=== PATIENT | male | born 1960 | race Caucasian/White ===

== ENCOUNTER 2021-04-10 09:05 | Emergency (ER) | payer MEDICARE, MEDICAID, SELFPAY ==
--- NOTE | ~2021-04-10 | XR_ITS ---
EXAMINATION: XR foot RT min 3V, XR ankle RT min 3V EXAM DATE: 04/10/2021 10:17 (accession [id number]), 04/10/2021 10:16 (accession [id number]) INDICATION: Rolled 1 week ago, persistent right foot, ankle pain. Initial encounter. TECHNIQUE: Right foot dorsoplantar, lateral and oblique projections obtained and reviewed. Right ank le frontal, lateral and oblique projections obtained and reviewed. There is no prior study for jude brunson. FINDINGS: Acute closed posttraumatic nondisplaced fracture at the medial side of the right 1st dista l phalangeal base. Metatarsal bones are unremarkable. Acute closed posttraumatic nondisplaced fracture of the right fibular tip with overlying soft tissue swelling. Fracture margin measures about over 1 cm in maximal dimension. Uncertain whether or not thi s will require surgical fixation. There is no distraction. Mortise relationship appears intact. IMPRESSION: 1. Acute right distal fibular tip fracture without distraction. Orthopedic consult. 2. 1st distal phalangeal base nondisplaced intra-articular fracture. Reviewed, dictated and finalized at location A. LABORER IMPRESSION: 1. Acute right distal fibular tip fracture without distraction. Orthopedic con sult. 2. 1st distal phalangeal base nondisplaced intra-articular fracture.
[2021-04-10 09:25] VITALS: BP 101/70; PULSE 92; RESP 18; TEMP 36.3; O2SAT 98
--- NOTE | 2021-04-10 09:40 | ED.LOWEXIN ---
HPI - Extremity Injury (Lower) General Chief Complaint: Extremity Injury, Lower Stated Complaint: Right ankel injury/fainting spells. Time Seen by Provider: 04/10/21 10:00 Source: patient and RN notes reviewed Mode of arrival: ambulatory Limitations: no limitations History of Present Illness HPI Narrative: 61-year-old male with history of HIV, diabetes, hypertension, neuropathy presents with right ankle and foot pain. He reports he has been having a problem with passing out recently for which he is seeing his primary care doctor, he passed out a week ago and hurt his ankle. He reports pain is tolerable in the morning, worsened throughout the day as he walks on it, swells. Reports he has prescription pain medicine he has been using. Reports bruising to the foot and ankle. MD complaint: ankle injury Related Data Home Medications Medication Instructions Recorded Confirmed abacavir 300 mg PO TID 04/10/21 04/10/21 allopurinol 100 mg PO DAILY 04/10/21 04/10/21 amlodipine 10 mg PO DAILY 04/10/21 04/10/21 cyclobenzaprine 10 mg PO TID 04/10/21 04/10/21 dolutegravir [Tivicay] 50 mg PO DAILY 04/10/21 04/10/21 duloxetine 60 mg PO DAILY 04/10/21 04/10/21 empagliflozin [Jardiance] 10 mg PO DAILY 04/10/21 04/10/21 fluticasone propionate 2 spray INTRANASAL DAILY 04/10/21 04/10/21 gabapentin 1,200 mg PO BID 04/10/21 04/10/21 icosapent ethyl [Vascepa] 1 g PO QID 04/10/21 04/10/21 icosapent ethyl [Vascepa] g PO 04/10/21 lancets [Microlet Lancet] 04/10/21 04/10/21 losartan 100 mg PO DAILY 04/10/21 04/10/21 metformin 1,000 mg PO BID 04/10/21 04/10/21 metformin 850 mg PO BID 04/10/21 04/10/21 metoprolol tartrate 50 mg PO BID 04/10/21 04/10/21 naloxegol [Movantik] 25 mg PO DAILY 04/10/21 04/10/21 omega-3 acid ethyl esters 1 g PO BID 04/10/21 04/10/21 oxycodone 10 mg PO BID 04/10/21 04/10/21 oxycodone [OxyContin] 20 mg PO Q12H 04/10/21 04/10/21 pravastatin 40 mg PO DAILY 04/10/21 04/10/21 tamsulosin 0.4 mg PO BID 04/10/21 04/10/21 tenofovir disoproxil fumarate 300 mg PO DAILY 04/10/21 04/10/21 topiramate 25 mg PO BID 04/10/21 04/10/21 trazodone 50 mg PO QID 04/10/21 04/10/21 venlafaxine 150 mg PO DAILY 04/10/21 04/10/21 Allergies Allergy/AdvReac Type Severity Reaction Status Date / Time No Known Allergies Allergy Unverified 06/20/17 09:46 Review of Systems Review of Systems: CONSTITUTIONAL: Denies malaise, chills, sweats, or fever. CARDIOVASCULAR: Denies chest pain, palpitations, or edema. RESPIRATORY: Denies cough or dyspnea. SKIN: Denies open skin, reports bruising and swelling to the right foot and ankle MUSCULOSKELETAL: Reports right foot and ankle pain NEUROLOGIC: Denies numbness, weakness All systems reviewed & are unremarkable except as noted in HPI and below PMFSH Comments At time of signature, agree with nursing past medical, surgical, social and family history. There is no relevant family history pertinent to the presenting complaint Exam Narrative: GENERAL: Well-appearing, well-nourished, and in no acute distress. HEAD: Normocephalic, atraumatic. EYES: PERRLA, conjunctivae clear NECK: Supple. CHEST: Speaks in full sentences. No respiratory distress. HEART: Regular rate and rhythm. Normal and equal peripheral pulses. EXTREMITIES: Right ankle, foot, digits have normal strength and sensation, grossly normal range of motion. Lateral ankle edema, late stage ecchymosis to the ankle and dorsal foot. 5/5 strength with ankle and digit flexion and extension. Normal sensation with sensitivity to light touch and pain. Lateral ankle and dorsal foot tenderness. No open wounds, no skin tenting, no devitalized tissue or atrophy, no trophic changes, no obvious deformity, alignment normal, nearby joints and structures intact. Distal pulses palpable and equal bilaterally, skin warm, dry, pink. Capillary refill less than 3 seconds. SKIN: Warm, dry, no rash. NEURO: Alert and oriented x3. PSYCH: Normal mood and affect Course Course Emergency
== END 2021-04-10 11:21 | disposition home or self-care (01) ==
PROVIDERS: Emergency Provider Nurse Practitioner; PCP Internal Medicine Infectious Disease
DX: S82.831A Other fracture of upper and lower end of right fibula, initial encounter for closed fracture (principal); W19.XXXA Unspecified fall, initial encounter; S92.901A Unspecified fracture of right foot, initial encounter for closed fracture; I10 Essential (primary) hypertension; Z21 Asymptomatic human immunodeficiency virus [HIV] infection status; E11.9 Type 2 diabetes mellitus without complications; F41.9 Anxiety disorder, unspecified; F32.A Depression, unspecified; G62.9 Polyneuropathy, unspecified
CPT/HCPCS: 29515; 73610; 73630; 99204; G0463

== ENCOUNTER 2022-04-21 17:04 | Emergency (ER) | payer MEDICARE, MEDICAID, SELFPAY ==
--- NOTE | ~2022-04-21 | XR_ITS ---
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 RESULT: Lines, tubes, and devices: None. Lungs and pleura: Diffuse reticulonodular opacities, with cuffing. Cardiomediastinal silhouette: Stable. Other: No acute osseous or upper abdominal finding. IMPRESSION: Pulmonary opacities may represent bronchiolitis, as can be seen with atypical infection, asthma, aspi ration, and small airways disease. Reviewed, dictated and finalized at location K. ALT SCREED OPERATOR IMPRESSION: Pulmonary opacities may represent bronchiolitis, as can be seen with atypical i nfection, asthma, aspiration, and small airways disease.
[2022-04-21 17:18] VITALS: BP 114/73; PULSE 117; RESP 22; TEMP 37.1; O2SAT 95
--- NOTE | 2022-04-21 19:09 | ED.URI ---
HPI - URI/Sore Throat General Chief Complaint: Upper Respiratory Infection Stated Complaint: Shortness of Breath Time Seen by Provider: 04/21/22 19:00 Source: patient, RN notes reviewed and old records reviewed Mode of arrival: ambulatory Limitations: no limitations History of Present Illness HPI Narrative: 62 year year old male accompanied by significant other presents to express care with complaints of patient having increased shortness of breath for the past 2 days with wheezing and SAO2 sats ranging 89-90% on home oximetry.Patient reported to have had pneumonia in December and then he had COVID in January. Patient has past history of tobacco abuse of cigarettes for 20 years at [facility] with vaping for the past 10 years. 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 Patient is able to answer questions appropriately. MD elicited complaint: cough and other (shortness of breath) Pertinent past history: pneumonia and other (COVID, tobacco use and vaping) Onset (ago): day(s) (2) Treatments prior to arrival: other (inhalers) Related Data Home Medications Medication Instructions Recorded Confirmed abacavir 300 mg tablet 300 mg PO BID 04/10/21 04/21/22 allopurinol 100 mg tablet 100 mg PO DAILY 04/10/21 04/21/22 amlodipine 10 mg tablet 10 mg PO DAILY 04/10/21 04/21/22 cyclobenzaprine 10 mg tablet 10 mg PO TID 04/10/21 04/21/22 dolutegravir 50 mg tablet (Tivicay) 50 mg PO DAILY 04/10/21 04/21/22 duloxetine 60 mg capsule,delayed 60 mg PO DAILY 04/10/21 04/21/22 release empagliflozin 10 mg tablet 10 mg PO DAILY 04/10/21 04/21/22 (Jardiance) fluticasone propionate 50 2 spray intranasal DAILY 04/10/21 04/21/22 mcg/actuation nasal spray,suspension gabapentin 600 mg tablet 1,200 mg PO BID 04/10/21 04/21/22 icosapent ethyl 1 gram capsule 1 g PO QID 04/10/21 04/21/22 (Vascepa) lancets (Microlet Lancet) 04/10/21 04/10/21 losartan 100 mg tablet 100 mg PO DAILY 04/10/21 04/21/22 metformin 500 mg tablet 1,000 mg PO BID 04/10/21 04/21/22 metoprolol tartrate 50 mg tablet 50 mg PO BID 04/10/21 04/21/22 naloxegol 25 mg tablet (Movantik) 25 mg PO DAILY 04/10/21 04/21/22 omega-3 acid ethyl esters 1 gram 1 g PO BID 04/10/21 04/21/22 capsule oxycodone 10 mg tablet 10 mg PO BID 04/10/21 04/21/22 oxycodone 20 mg tablet,crush 20 mg PO Q12H 04/10/21 04/21/22 resistant,extended release 12 hr (OxyContin) pravastatin 40 mg tablet 40 mg PO DAILY 04/10/21 04/21/22 tamsulosin 0.4 mg capsule 0.4 mg PO BID 04/10/21 04/21/22 tenofovir disoproxil fumarate 300 300 mg PO DAILY 04/10/21 04/21/22 mg tablet topiramate 25 mg tablet 25 mg PO BID 04/10/21 04/21/22 trazodone 50 mg tablet 50 mg PO QID 04/10/21 04/21/22 venlafaxine 150 mg 150 mg PO DAILY 04/10/21 04/21/22 capsule,extended release 24 hr fluticasone furoate 200 See Rx Instructions .Route .COMPLEX 04/21/22 04/21/22 mcg-vilanterol 25 mcg/dose inhalation powder (Breo Ellipta) Allergies Allergy/AdvReac Type Severity Reaction Status Date / Time No Known Allergies Allergy Unverified 04/21/22 18:31 Review of Systems Review of Systems: CONSTITUTIONAL: Denies fever, chills, or sweats. EYES: Denies visual changes, redness, or discharge. ENT: Denies rhinorrhea, congestion, sore throat, or otalgia. CARDIOVASCULAR: Denies chest pain, palpitations, or edema. RESPIRATORY: Reports cough wheezing and dyspnea. GASTROINTESTINAL: Denies abdominal pain, nausea, vomiting, or diarrhea. GENITOURINARY: Denies dysuria or hematuria. SKIN: Denies rash or itching. MUSCULOSKELETAL: Chronic back pain, joint pain, or myalgia. NEUROLOGIC: Denies headache, numbness, or weakness. PSYCHIATRIC: Positive anxiety or depression. All systems reviewed & are unremarkable except as noted in HPI and below PMFSH Past Medical History Medical History (Updated 04/28/22 @ 16:48 by Tata Cabello NP)
== END 2022-04-21 19:30 | disposition home or self-care (01) ==
PROVIDERS: Emergency Provider Registered Nurse; PCP Internal Medicine Infectious Disease
DX: J21.9 Acute bronchiolitis, unspecified (principal); J06.9 Acute upper respiratory infection, unspecified; R05.9 Cough, unspecified; Z21 Asymptomatic human immunodeficiency virus [HIV] infection status; F17.290 Nicotine dependence, other tobacco product, uncomplicated; E11.9 Type 2 diabetes mellitus without complications; E78.00 Pure hypercholesterolemia, unspecified; I10 Essential (primary) hypertension; F41.9 Anxiety disorder, unspecified; F32.A Depression, unspecified
CPT/HCPCS: 71046; 99213; G0463

== ENCOUNTER 2023-08-09 15:27 | Emergency (ER) | payer MEDICARE, MEDICAID, SELFPAY ==
--- NOTE | ~2023-08-09 | XR_ITS ---
EXAM: XR ankle RT min 3V DATE: 08/09/2023 16:32 HISTORY: pain right medial ankle x 2 days. Previous fx . COMPARISON: 04/10/2021. FINDINGS: Decreased mineralization. Redemonstration of the oblique lucency through the distal aspect of the lateral malleolus, seen only in the lateral view No new acute fracture or dislocation. No lyt ic or blastic lesion. Joint spaces are maintained. No erosion or periosteal change. Mild soft tissue swelling about the ankle. IMPRESSION: No new acute osseous finding. 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 Reviewed, dictated and finalized at location K. IMPRESSION: No new acute osseous finding. 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
[2023-08-09 15:42] VITALS: BP 115/65; PULSE 102; RESP 18; TEMP 36.7; O2SAT 99
--- NOTE | 2023-08-09 16:07 | ED.GENADULT ---
HPI - General Adult General Chief complaint: Extremity Injury, Lower Stated complaint: Right ankle injury Time Seen by Provider: 08/09/23 16:00 Source: patient, RN notes reviewed and old records reviewed Mode of arrival: ambulatory Limitations: no limitations History of Present Illness HPI narrative: 63 year old male presents to express care with complaints of going down steps 2 night ago and twisted his foot and now is having pain across medial anterior aspect of right ankle. Patient reports that he had fracture of his lateral right ankle 2 years ago which didn't require internal fixation of his right ankle. Patient report that his discomfort is a burning type of pain rates it 10/20 and states that he has taken some Ibuprofen and he is on oxycodone for chronic back pain. MD complaint: right medial and anterior ankle discomfort. Onset (ago): day(s) (2) Location: lower extremity (right medial and anterior ankle) Severity: moderate Severity scale (1-10): 6 Exacerbating factors: other (weight bearing) Treatments prior to arrival: NSAID and other (daily pain medication) Related Data Home Medications Medication Instructions Recorded Confirmed abacavir 300 mg tablet 300 mg PO BID 04/10/21 04/21/22 allopurinol 100 mg tablet 100 mg PO DAILY 04/10/21 04/21/22 amlodipine 10 mg tablet 10 mg PO DAILY 04/10/21 04/21/22 cyclobenzaprine 10 mg tablet 10 mg PO TID 04/10/21 04/21/22 dolutegravir 50 mg tablet (Tivicay) 50 mg PO DAILY 04/10/21 04/21/22 empagliflozin 10 mg tablet 10 mg PO DAILY 04/10/21 04/21/22 (Jardiance) gabapentin 600 mg tablet 1,200 mg PO BID 04/10/21 04/21/22 icosapent ethyl 1 gram capsule 1 g PO QID 04/10/21 04/21/22 (Vascepa) lancets (Microlet Lancet) 04/10/21 04/10/21 metformin 500 mg tablet 1,000 mg PO BID 04/10/21 04/21/22 metoprolol tartrate 50 mg tablet 50 mg PO BID 04/10/21 04/21/22 omega-3 acid ethyl esters 1 gram 1 g PO BID 04/10/21 04/21/22 capsule pravastatin 40 mg tablet 40 mg PO DAILY 04/10/21 04/21/22 tamsulosin 0.4 mg capsule 0.4 mg PO BID 04/10/21 04/21/22 tenofovir disoproxil fumarate 300 300 mg PO DAILY 04/10/21 04/21/22 mg tablet topiramate 25 mg tablet 25 mg PO BID 04/10/21 04/21/22 trazodone 50 mg tablet 50 mg PO QID 04/10/21 04/21/22 venlafaxine 150 mg 150 mg PO DAILY 04/10/21 04/21/22 capsule,extended release 24 hr fluticasone furoate 200 See Rx Instructions .Route .COMPLEX 04/21/22 04/21/22 mcg-vilanterol 25 mcg/dose inhalation powder (Breo Ellipta) apixaban 5 mg tablet (Eliquis) mg 08/09/23 colchicine 0.6 mg capsule mg 08/09/23 diltiazem HCl 120 mg mg PO 08/09/23 08/09/23 capsule,extended release 24 hr, controlled (DILT-XR) fluticasone 500 mcg-salmeterol 50 inhalation 08/09/23 mcg/dose blistr powdr for inhalation (Wixela Inhub) oxycodone myristate 18 mg capsule mg 08/09/23 sprinkle extended release 12hr(DON'T CRUSH) (Xtampza ER) pantoprazole 40 mg tablet,delayed mg PO 08/09/23 release ropinirole 0.5 mg tablet mg 08/09/23 sulfamethoxazole 800 tablet 08/09/23 mg-trimethoprim 160 mg tablet Allergies Allergy/AdvReac Type Severity Reaction Status Date / Time No Known Allergies Allergy Unverified 08/09/23 15:32 Review of Systems Review of Systems: CONSTITUTIONAL: Denies fever, chills, or sweats. EYES: Denies visual changes, redness, or discharge. ENT: Denies rhinorrhea, congestion, sore throat, or otalgia. CARDIOVASCULAR: Denies chest pain, palpitations, or edema. RESPIRATORY: Denies cough or dyspnea. GASTROINTESTINAL: Denies abdominal pain, nausea, vomiting, or diarrhea. GENITOURINARY: Denies dysuria or hematuria. SKIN: Denies rash or itching. MUSCULOSKELETAL: Chronic back pain,positive for medial and anterior ankle pain, or myalgia after going down steps and twisting his ankle. NEUROLOGIC: Denies headache, numbness, or weakness. PSYCHIATRIC: Positive for history of anxiety or depression. All systems reviewed & are unremarkable except as noted
== END 2023-08-09 17:03 | disposition home or self-care (01) ==
PROVIDERS: Emergency Provider Registered Nurse; PCP Internal Medicine Infectious Disease
DX: M25.571 Pain in right ankle and joints of right foot (principal); F17.290 Nicotine dependence, other tobacco product, uncomplicated; Z21 Asymptomatic human immunodeficiency virus [HIV] infection status; E78.00 Pure hypercholesterolemia, unspecified; I10 Essential (primary) hypertension; E11.40 Type 2 diabetes mellitus with diabetic neuropathy, unspecified; Z79.84 Long term (current) use of oral hypoglycemic drugs; F41.9 Anxiety disorder, unspecified; F32.A Depression, unspecified
CPT/HCPCS: 73610; 99213; G0463

== ENCOUNTER 2023-08-27 17:51 | Emergency (ER) | payer MEDICARE, MEDICAID, SELFPAY ==
--- NOTE | ~2023-08-27 | XR_ITS ---
EXAMINATION: XR ankle RT min 3V DATE: 08/27/2023 18:48 INDICATION: Right ankle injury and swelling. TECHNIQUE: 4 views of right ankle were obtained. COMPARISON: Right ankle radiographs 08/09/2023 FINDINGS: There is a nondisplaced transverse fracture of distal tip of lateral malleolus. Joint space s are normal. There is ankle soft tissue swelling. IMPRESSION: 1. Nondisplaced transverse fracture of distal tip of lateral malleolus. Reviewed, dictated and finalized at location E.
[2023-08-27 18:07] VITALS: BP 118/74; PULSE 97; RESP 20; TEMP 36.6; O2SAT 96
--- NOTE | 2023-08-27 18:33 | ED.LOWEXIN ---
HPI - Extremity Injury (Lower) General Chief Complaint: Extremity Injury, Lower Stated Complaint: right ankle injury Time Seen by Provider: 08/27/23 18:35 Source: patient, family, RN notes reviewed and old records reviewed Mode of arrival: ambulatory (with cane) Limitations: no limitations History of Present Illness HPI Narrative: 63 year old male present to [facility] ambulatory using cane with complaints of injury to his right lateral ankle. Patient reports that he tripped over gum balls in yard rolled his ankle with lateral ankle pain and swelling with large amount of swelling to lateral ankle region and pain. Patient has had previous fracture to his right ankle about 2 years ago. Patient reports that he took his prescribed pain medication that he takes for chronic back pain around noon today and he has applied ice to his ankle and elevated. Reports pain 9/10 to his right lateral ankle with throbbing pain. MD complaint: ankle injury (right) Onset (ago): day(s) (today) Injury: Right: ankle (lateral) Type of Injury: other (rolled right foot and fell in yard) Place: home Severity scale (1-10): 9 Exacerbating factors: weight bearing and movement Treatments prior to arrival: cold therapy and other (his prescribed pain medication which he takes for chronic back pain) Related Data Home Medications Medication Instructions Recorded Confirmed abacavir 300 mg tablet 300 mg PO BID 04/10/21 08/27/23 allopurinol 100 mg tablet 100 mg PO DAILY 04/10/21 08/27/23 amlodipine 10 mg tablet 10 mg PO DAILY 04/10/21 08/27/23 cyclobenzaprine 10 mg tablet 10 mg PO TID 04/10/21 08/27/23 dolutegravir 50 mg tablet (Tivicay) 50 mg PO DAILY 04/10/21 08/27/23 empagliflozin 10 mg tablet 10 mg PO DAILY 04/10/21 08/27/23 (Jardiance) gabapentin 600 mg tablet 1,200 mg PO BID 04/10/21 08/27/23 icosapent ethyl 1 gram capsule 1 g PO QID 04/10/21 08/27/23 (Vascepa) lancets (Microlet Lancet) 04/10/21 08/27/23 metformin 500 mg tablet 1,000 mg PO BID 04/10/21 08/27/23 metoprolol tartrate 50 mg tablet 50 mg PO BID 04/10/21 08/27/23 omega-3 acid ethyl esters 1 gram 1 g PO BID 04/10/21 08/27/23 capsule pravastatin 40 mg tablet 40 mg PO DAILY 04/10/21 08/27/23 tamsulosin 0.4 mg capsule 0.4 mg PO BID 04/10/21 08/27/23 tenofovir disoproxil fumarate 300 300 mg PO DAILY 04/10/21 08/27/23 mg tablet topiramate 25 mg tablet 25 mg PO BID 04/10/21 08/27/23 trazodone 50 mg tablet 50 mg PO QID 04/10/21 08/27/23 venlafaxine 150 mg 150 mg PO DAILY 04/10/21 08/27/23 capsule,extended release 24 hr fluticasone furoate 200 See Rx Instructions .Route .COMPLEX 04/21/22 08/27/23 mcg-vilanterol 25 mcg/dose inhalation powder (Breo Ellipta) apixaban 5 mg tablet (Eliquis) 5 mg PO DAILY 08/09/23 08/27/23 colchicine 0.6 mg capsule 0.6 mg PO DAILY 08/09/23 08/27/23 diltiazem HCl 120 mg 120 mg PO DAILY 08/09/23 08/27/23 capsule,extended release 24 hr, controlled (DILT-XR) fluticasone 500 mcg-salmeterol 50 2 inh inhalation DAILY 08/09/23 08/27/23 mcg/dose blistr powdr for inhalation (Wixela Inhub) oxycodone myristate 18 mg capsule 18 mg PO QID PRN Pain (Scale Score 08/09/23 08/27/23 sprinkle extended release 7-10) 12hr(DON'T CRUSH) (Xtampza ER) pantoprazole 40 mg tablet,delayed 40 mg PO DAILY 08/09/23 08/27/23 release ropinirole 0.5 mg tablet 0.5 mg PO DAILY 08/09/23 08/27/23 Allergies Allergy/AdvReac Type Severity Reaction Status Date / Time cefepime Allergy Severe Hives Verified 08/27/23 19:18 Review of Systems Review of Systems: CONSTITUTIONAL: Denies fever, chills, or sweats. EYES: Denies visual changes, redness, or discharge. ENT: Denies rhinorrhea, congestion, sore throat, or otalgia. CARDIOVASCULAR: Denies chest pain, palpitations, or edema. RESPIRATORY: Denies cough or dyspnea. GASTROINTESTINAL: Denies abdominal pain, nausea, vomiting, or diarrhea. GENITOURINARY: Denies dysuria or hematuria. SKIN: Denies rash or itching. MUSCULOSKELETAL: Denies ba
== END 2023-08-27 20:00 | disposition home or self-care (01) ==
PROVIDERS: Emergency Provider Registered Nurse; PCP Internal Medicine Infectious Disease
DX: S82.61XA Displaced fracture of lateral malleolus of right fibula, initial encounter for closed fracture (principal); W18.09XA Striking against other object with subsequent fall, initial encounter; F41.9 Anxiety disorder, unspecified; F32.A Depression, unspecified; E11.40 Type 2 diabetes mellitus with diabetic neuropathy, unspecified; E78.00 Pure hypercholesterolemia, unspecified; I10 Essential (primary) hypertension; Z21 Asymptomatic human immunodeficiency virus [HIV] infection status; F17.290 Nicotine dependence, other tobacco product, uncomplicated
CPT/HCPCS: 29515; 73610; 99214; G0463

== ENCOUNTER 2025-04-06 17:54 | Emergency (ER) | payer MEDICARE, MEDICAID, SELFPAY ==
--- NOTE | ~2025-04-06 | XR_ITS ---
EXAMINATION: XR chest 2V DATE: 04/06/2025 18:24 INDICATION: Cough and congestion. TECHNIQUE: Frontal and lateral views of the chest were obtained. COMPARISON: Chest x-ray dated 01/30/2017. FINDINGS: Mild cardiomegaly. Nodularity appears space opacity of the mid perihilar region of right lung. Possible pneumonia. Neoplasm is not ruled out. Left lung is relatively clear. IMPRESSION: 1. Large airspace opacity in the right perihilar region, possible pneumonia. Imaging follow-up is needed to rule out neoplasm. 2. Hiatus hernia and emphysema lungs. Reviewed, dictated and finalized at location T. S FACILITATOR IMPRESSION: 1. Large airspace opacity in the right perihilar region, possible pneumonia. Im aging follow-up is needed to rule out neoplasm. 2. Hiatus hernia and emphysema lungs.
--- NOTE | 2025-04-06 17:55 | ED.URI ---
HPI - URI/Sore Throat General Chief Complaint: Upper Respiratory Infection Stated Complaint: Chest Congestion/Cough Time Seen by Provider: 04/06/25 17:55 Source: patient Mode of arrival: ambulatory Limitations: no limitations History of Present Illness HPI Narrative: Eliel is a 65-year-old male patient presenting to the clinic today with complaints of chest congestion, low grade fever, productive cough- green/yellow/brown phlegm with blood in it at times. He reports symptoms have been going on for 5 days. States they recently diagnosed him with COPD. He is a currently smoker. History of diabetes, hypertension, neuropathy, and HIV+. Highest fever was 100F. Took OTC Robitussin for treatment. Related Data Home Medications ?Medication ?Instructions ?Recorded ?Confirmed ?Last Taken ?Type abacavir 300 mg tablet 300 mg PO BID 04/10/21 08/27/23 Unknown History allopurinol 100 mg tablet 100 mg PO DAILY 04/10/21 08/27/23 Unknown History amlodipine 10 mg tablet 10 mg PO DAILY 04/10/21 08/27/23 Unknown History dolutegravir 50 mg tablet (Tivicay) 50 mg PO DAILY 04/10/21 08/27/23 Unknown History empagliflozin 10 mg tablet 10 mg PO DAILY 04/10/21 08/27/23 Unknown History (Jardiance) gabapentin 600 mg tablet 1,200 mg PO BID 04/10/21 08/27/23 Unknown History icosapent ethyl 1 gram capsule 1 g PO QID 04/10/21 08/27/23 Unknown History (Vascepa) lancets (Microlet Lancet) 04/10/21 08/27/23 Unknown History metformin 500 mg tablet 1,000 mg PO BID 04/10/21 08/27/23 Unknown History metoprolol tartrate 50 mg tablet 50 mg PO BID 04/10/21 08/27/23 Unknown History omega-3 acid ethyl esters 1 gram 1 g PO BID 04/10/21 08/27/23 Unknown History capsule pravastatin 40 mg tablet 40 mg PO DAILY 04/10/21 08/27/23 Unknown History tamsulosin 0.4 mg capsule 0.4 mg PO BID 04/10/21 08/27/23 Unknown History tenofovir disoproxil fumarate 300 300 mg PO DAILY 04/10/21 08/27/23 Unknown History mg tablet trazodone 50 mg tablet 50 mg PO QID 04/10/21 08/27/23 Unknown History venlafaxine 150 mg 150 mg PO DAILY 04/10/21 08/27/23 Unknown History capsule,extended release 24 hr apixaban 5 mg tablet (Eliquis) 5 mg PO DAILY 08/09/23 08/27/23 Unknown History colchicine 0.6 mg capsule 0.6 mg PO DAILY 08/09/23 08/27/23 Unknown History diltiazem HCl 120 mg 120 mg PO DAILY 08/09/23 08/27/23 Unknown History capsule,extended release 24 hr, controlled (DILT-XR) fluticasone 500 mcg-salmeterol 50 2 inh inhalation DAILY 08/09/23 08/27/23 Unknown History mcg/dose blistr powdr for inhalation (Wixela Inhub) oxycodone myristate 18 mg capsule 18 mg PO QID PRN Pain (Scale Score 08/09/23 08/27/23 Unknown History sprinkle extended release 7-10) 12hr(DON'T CRUSH) (Xtampza ER) pantoprazole 40 mg tablet,delayed 40 mg PO DAILY 08/09/23 08/27/23 Unknown History release ropinirole 0.5 mg tablet 0.5 mg PO DAILY 08/09/23 08/27/23 Unknown History acyclovir 400 mg tablet mg 04/06/25 Unknown History albuterol sulfate 2.5 mg/3 mL mg 04/06/25 Unknown History (0.083 %) solution for nebulization albuterol sulfate 90 mcg/actuation inhalation 04/06/25 Unknown History aerosol inhaler azelastine 137 mcg (0.1 %) nasal intranasal 04/06/25 Unknown History spray blood sugar diagnostic (Accu-Chek 04/06/25 04/06/25 Unknown History Guide test strips) fluticasone fur. 100 mcg-umeclid inhalation 04/06/25 Unknown History 62.5 mcg-vilant 25 mcg inhalat.powder (Trelegy Ellipta) nystatin 100,000 unit/mL oral 04/06/25 Unknown History suspension oxycodone 10 mg tablet mg 04/06/25 Unknown History sulfamethoxazole 800 tablet 04/06/25 Unknown History mg-trimethoprim 160 mg tablet topiramate 50 mg tablet mg 04/06/25 Unknown History venlafaxine 75 mg capsule,extended mg PO 04/06/25 Unknown History release 24 hr Allergies Allergy/AdvReac Type Severity Reaction Status Date / Time cefepime Allergy Severe Hives Verified 04/06/25 18:06 Review of Systems Review of Systems: Pertinent positives per HPI. Patient denies any rash, headache, visual changes, dizziness, chest pain, palpitations, nausea, vomiting, diarrhea, constipation, abdominal pain, or any urinary issues. FORMERLY [facility], 1928–1983 Past Medical History Medical History Neuropathy HIV (human immunodeficiency virus infection) Anxiety and depression Elevated cholesterol Chronic back pain Hypertension Diabetes Surgical History Surgical History History of surgery on lower extremity right calf for nerve impingement History of tonsillectomy Family History Family History Mother Diabetes mellitus Heart disease Grandparent Cancer Father Cancer Social History Social History Smoking status: Current every day smoker Tobacco type: e-cigarettes/vaping Additional smoking assessment comments: smoked cigarettes 1ppd for 20 years Alcohol intake: current Substance use type: opiates Last use: pain control Gender identity (if verbalized by the patient): Male Comments At the time of my signature, I reviewed and agree with the nursing past medical, surgical, social, and family history. There is no relevant family history pertinent to the patient complaint. Exam Narrative: General: Well-developed, thin, in no apparent distress Head: Normocephalic, atraumatic Eyes: Pupils equally round and reactive to light bilaterally, EOM intact, sclera and conjunctive clear, no discharge, lids normal Ears: TMs intact and clear, ear canals clear, no drainage, grossly hearing normal. Nose: Nares patent, no discharge, moderate inflammation, no sinus tenderness. Mouth: Oral pharynx without lesions or masses, good dentition, MMM. PND Neck: Supple, trachea midline, no enlargement of anterior or posterior cervical nodes, no thyroid masses or goiter palpable. Cardio: Regular rate and rhythm, s1 and s2 normal, no murmur appreciated. Resp: Expiratory wheezing throughout lung macias, no rhonchi, rales, or rubs Course Course Emergency Course: Portions of this record may have been created with voice recognition software. Level of Care: Express Care Visit Vital Signs Vital signs: Vital Signs Temperature 36.7 C 04/06/25 18:00 Pulse Rate 112 H 04/06/25 18:00 Respiratory Rate 14 04/06/25 18:00 Blood Pressure 111/80 04/06/25 18:00 Pulse Oximetry 98 04/06/25 18:00 Oxygen Delivery Room Air 04/06/25 18:00 Temperature 36.7 C 04/06/25 18:00 Pulse Rate 112 H 04/06/25 18:00 Respiratory Rate 14 04/06/25 18:00 Blood Pressure 111/80 04/06/25 18:00 Pulse Oximetry 98 04/06/25 18:00 Oxygen Delivery Room Air 04/06/25 18:00 Vital signs reviewed MDM - URI/Sore Throat MDM Narrative Medical decision making narrative: At the time of visit patient is resting comfortably on the exam table. Patient appears to be nontoxic. Complaints of chest congestion, low grade fever, productive cough- green/yellow/brown phlegm with blood in it at times. He reports symptoms have been going on for 5 days. States they recently diagnosed him with COPD. He is a currently smoker. History of HIV+. Highest fever was 100F. Took OTC Robitussin for treatment. On exam patient has bilateral TMs intact and clear, clear nasal drainage with moderate inflammation of the anterior turbinates, no sinus tenderness, oropharynx with postnasal drip, expiratory wheezing throughout lung macias, heart rates regular rate rhythm. Chest x-ray was ordered. Patient is reporting that he gets pneumonia every 2 months. Has been placed on Levaquin in the past for his pneumonia. He is able to take azithromycin and Augmentin but prefers the Levaquin. Diagnostics: Chest x-ray was performed large airspace opacity in the right perihilar region which is possible pneumonia. Recommend an image follow-up to rule out neoplasm Plan: I suspect patient has pneumonia but cannot exclude neoplasm. Patient has CT low-dose lung scan scheduled for April 19. Will have patient follow-up with his PCP and get his lungs scan done as scheduled. Will place him on Levaquin and have him follow-up closely with his PCP provider. He reports he just recently got a new prescription for an albuterol inhaler. Supportive measures were discussed with the patient and they voiced understanding discharge instructions and agrees to treatment plan. Return precautions reviewed Differential Diagnosis Differential diagnosis: Likely upper respiratory infection, otitis media, sinusitis, viral infection, bronchitis, influenza, pharyngitis and other (COVID, COPD exacerbation, pneumonia) Imaging Data Radiologist's impression: ITS Impressions Chest X-Ray 04/06/25 18:25 IMPRESSION: 1. Large airspace opacity in the right perihilar region, possible pneumonia. Imaging follow-up is needed to rule out neoplasm. 2. Hiatus hernia and emphysema lungs. Discharge Plan Discharge Clinical Impression: Pneumonia Qualifiers: Pneumonia type: due to unspecified organism Laterality: right Lung location: upper lobe of lung Qualified Code(s): J18.9 - Pneumonia, unspecified organism Patient Disposition: Home Condition: Stable Instructions: Antibiotic Form, Pneumonia (ED) Additional Instructions: Chest x-ray shows large airspace opacity in the right perihilar region which is possible pneumonia. Recommend in image follow-up to rule out neoplasm Take prescription medications only as prescribed-Levaquin Increase fluids and stay well hydrated May take Tylenol or motrin as directed on bottle for pain/fever May use Flonase 1 spray in each nare daily May take OTC antihistamines such as Zyrtec or Claritin daily as directed on bottle May apply Vicks vapor rub to chest to open sinuses Sinus rinses for congestion Cepacol spray, cough drops, throat lozenges, warm tea with honey/lemon, gargle salt water to soothe throat BRAT diet for diarrhea Clear liquids x 24 hours then advance as tolerated for nausea/vomiting Go to the ED if you develop a worsening in your condition- high fever not controlled by Tylenol or Motrin, dehydration, weakness, lethargy, shortness of breath, or chest pain. Follow up with your PCP in 3-5 days Patient Language: Yi Prescriptions: New levofloxacin 750 mg tablet 750 mg PO DAILY 7 Days Qty: 7 0RF No Action omega-3 acid ethyl esters 1 gram capsule 1 g PO BID Jardiance 10 mg tablet 10 mg PO DAILY amlodipine 10 mg tablet 10 mg PO DAILY Tivicay 50 mg tablet 50 mg PO DAILY metformin 500 mg tablet 1,000 mg PO BID trazodone 50 mg tablet 50 mg PO QID venlafaxine 150 mg capsule,extended release 24hr 150 mg PO DAILY tenofovir disoproxil fumarate 300 mg tablet 300 mg PO DAILY abacavir 300 mg tablet 300 mg PO BID (DME) lancets [Microlet Lancet] Misc MISCELLANEOUS metoprolol tartrate 50 mg tablet 50 mg PO BID gabapentin 600 mg tablet 1,200 mg PO BID pravastatin 40 mg tablet 40 mg PO DAILY tamsulosin 0.4 mg capsule 0.4 mg PO BID allopurinol 100 mg tablet 100 mg PO DAILY icosapent ethyl [Vascepa] 1 gram capsule 1 g PO QID nystatin 100,000 unit/mL suspension venlafaxine 75 mg capsule,extended release 24hr PO albuterol sulfate 2.5 mg /3 mL (0.083 %) solution for nebulization (DME) Accu-Chek Guide test strips Strip MISCELLANEOUS acyclovir 400 mg tablet sulfamethoxazole-trimethoprim 800-160 mg tablet azelastine 137 mcg (0.1 %) spray,non-aerosol INTRANASAL albuterol sulfate 90 mcg/actuation HFA aerosol inhaler INHALATION topiramate 50 mg tablet oxycodone 10 mg tablet Trelegy Ellipta 100-62.5-25 mcg blister with device INHALATION pantoprazole 40 mg tablet,delayed release (DR/EC) 40 mg PO DAILY ropinirole 0.5 mg tablet 0.5 mg PO DAILY fluticasone propion-salmeterol [Wixela Inhub] 500-50 mcg/dose blister with device 2 inh INHALATION DAILY diltiazem HCl [DILT-XR] 120 mg capsule,ext.rel 24h degradable 120 mg PO DAILY Eliquis 5 mg tablet 5 mg PO DAILY colchicine 0.6 mg capsule 0.6 mg PO DAILY Xtampza ER 18 mg cap,sprinkl,ER12hr(DONT CRUSH) 18 mg PO QID PRN (Reason: Pain (Scale Score 7-10)) Follow-up/Referrals: Michael,Aldair Kolb MD [Primary Care Provider, Unknown] Time of Disposition: 18:35 Quality NIHSS Nursing Documentation ED NIHSS nursing documentation: reviewed/agree
[2025-04-06 18:00] VITALS: BP 111/80; PULSE 112; RESP 14; TEMP 36.7; O2SAT 98
--- OUTSIDE RECORDS SUMMARY | 2025-04-06 18:00 | XMS_ITS | Encounter Summary ---
Author Organization [facility] Address [address] [place] [address] Care Team Providers Care Litigation Docket Manager Name Role Phone Aldair Rodriguez MD Primary Care Provider [phone] Ro Kirby MD Unavailable Nava Xiao MD Unavailable [phone] Tianna Richards MD Unavailable [phone] Jaylen Lau MD Unavailable [phone] Betzaida Oviedo NP Unavailable [phone] Kimani Shukla MD Unavailable [phone] Ramone Lafleur BUTTONER Unavailable [phone] Bre Nieto MD Unavailable [phone] Xochitl Nails MD Unavailable [phone] Bryan Pierson MD Unavailable Eron Mast MD Unavailable [phone] Francesco Kam BUTTONER Unavailable [phone] Nimesh Melvin MD Unavailable Dirk, Khadra C. BUTTONER Unavailable [phone] Rufina Mccall MA Unavailable [phone] Bunny Solorzano MD Unavailable [phone] Khadra Cavazos NP Unavailable [phone] Nir Hastings MD Unavailable [phone] Rahul Herr RN Unavailable Michele Monroe MD Unavailable [phone] Jane Fierro RN Unavailable [phone] Eliel Benitez RN Unavailable [phone] Susan Herrera MA Unavailable Unavailable Nir Hastings MD Unavailable [phone] Araceli Bolaños MA Unavailable Siobhan Walls NP Unavailable [phone] Reason for Visit * Reason Onset Date Comments Appointment Reminder Call 01/09/2022 confir med Encounter Details Date Type Department Care Team (Late st Contact Info) Description 01/09/2022 Telephone [facility] [address] [place] [address] Precious Delgadillo RT Appointment Reminder Call (confirmed) Social History Tobacco Use Types Packs/Day Years Used Date Smoking Tobacco: Former Cigarettes 1 39 0 06/13/1975 - 06/13/2014 Smokeless Tobacco: Never Alcohol Use Standard Drinks/Week Comments Yes 0 (1 standard drink = 0.6 oz pur e alcohol) 3-4x/week AUDIT-C Answer Date Recorded Q1: How often do you have a drink containing alc ohol? 2-4 times a month 05/09/2021 Q2: How many drinks containi ng alcohol do you have on a typical day when you are drinking? 5 or 6 05/09/2021 Q3: How often do you have si x or more drinks on one occasion? Less than monthly 05/09/2021 PHQ-2 Answer Date Recorded PHQ-2 Total Score (If total score is 3 or more points, staff should administer the PHQ-9) 0 12/23/2021 Sex and Gender Information Value Date Recorded Sex Assigned at Not on file Legal Sex Male 7:11 PM CLARIFICATION OPERATOR Gender Identity Male 10/25/2024 9:48 AM CDT Sexual Orientation M[place]artney 10/25/2024 9: 48 AM CDT documented as of this encounter Plan of Treatment Upcoming Encounters Date Type Department Care Team (Late st Contact Info) Description 06/02/2025 11:15 AM CLARIFICATION OPERATOR Hospital Encounter [facility] Endoscopy [id number] [address] [address] Xochitl Nails MD [address] [place] [address] 06/02/2025 11:15 AM CLARIFICATION OPERATOR - 06/02/2025 12:00 PM CLARIFICATION OPERATOR Surgery [facility] Endoscopy [id number] [address] [address] Xochitl Nails MD [address] [place] [address] COLONOSCOPY Scheduled Procedures Name Priority Associated Diagnoses Date/Ti me COLONOSCOPY History of colon polyps 06/02/2025 11:15 AM CLARIFICATION OPERATOR documented as of this encounter Visit Diagnoses Not on filedocumented in this encounter Additional Health Concerns Infection Onset Date Last Indicated Resolved Time MDR gram neg/ESBL Comment:10/02/22 CRE Culture for surveillance performed and results are NEGATIVE. ANA M Roberts Patients who received care at a healthcare facility outside of the [place] will be placed in Contact Precautions until infection or colonization with specific highly resistant bacteria can be ruled out. Infection Prevention will arrange screening. Please contact Infection Prevention. 10/02/2022 10/02/2022 10/18/2022 3:35 PM CDT COVID: Suspected 10/02/2022 10/02/2022 10/02/2022 8:43 AM CDT COVID: Suspected 10/03/2022 10/03/2022 10/04/2022 12:57 AM CDT COVID: Suspected 10/17/2022 10/17/2022 10/18/2022 9:55 AM CDT COVID: Suspected 10/25/2022 10/25/2022 10/25/2022 5:00 PM CDT MDR gram neg/ESBL Comment:10/02/22 CRE Culture for surveillance performed and results are NEGATIVE. ANA M Roberts Patients who received care at a healthcare facility outside of the [place] will be placed in Contact Precautions until infection or colonization with specific highly resistant bacteria can be ruled out. Infection Prevention will arrange screening. Please contact Infection Prevention. 11/03/2022 11/03/2022 11/05/2022 10:18 AM CDT COVID: Suspected 11/03/2022 11/03/2022 11/03/2022 9:31 AM CDT COVID: Suspected 11/23/2022 11/23/2022 11/23/2022 9:11 PM CDT MDR gram neg/ESBL Comment:CRE culture, surveillance Rectal swab performed 10/02/22 resulted NEGATIVE. This rules out infection or colonization with specific highly resistant bacteria. ANA M Roberts Patients who received care at a healthcare facility outside of the [place] will be placed in Contact Precautions until infection or colonization with specific highly resistant bacteria can be ruled out. Infection Prevention will arrange screening. Please contact Infection Prevention. 11/23/2022 11/23/2022 11/26/2022 9:45 AM CDT COVID: Suspected 12/02/2022 12/02/2022 12/02/2022 6:48 PM CDT MDR gram neg/ESBL Comment:10/02/22 CRE Culture for surveillance was performed and results were NEGATIVE. ANA M Roberts Patients who received care at a healthcare facility outside of the [place] will be placed in Contact Precautions until infection or colonization with specific highly resistant bacteria can be ruled out. Infection Prevention will arrange screening. Please contact Infection Prevention. 12/26/2022 12/26/2022 02/21/2023 2:29 PM CDT COVID: Suspected 02/19/2023 02/19/2023 02/19/2023 8:27 PM CDT COVID: Suspected 03/11/2023 03/11/2023 03/11/2023 11:07 PM CDT COVID: Suspected 10/22/2023 10/22/2023 10/22/2023 9:07 PM CDT COVID: Suspected 04/06/2024 04/06/2024 04/06/2024 3:53 PM CLARIFICATION OPERATOR C. difficile suspected 06/08/2024 06/12/202406/09 3:07 AM CLARIFICATION OPERATOR C. difficile suspected 06/12/2024 06/12/202406/12 10:34 PM CLARIFICATION OPERATOR COVID: Suspected 07/11/2024 07/11/2024 07/11/2024 5:10 AM CLARIFICATION OPERATOR COVID: Suspected 07/16/2024 07/16/2024 07/16/2024 5:23 PM CLARIFICATION OPERATOR COVID: Suspected 08/13/2024 08/13/2024 08/13/2024 11:53 PM CDT documented as of this encounter Care Teams Litigation Docket Manager Relationship Specialty Start Date End Date Aldair Rodriguez MD [address] [place] [id number] PCP - General 10/12/14 Ro Kirby MD [address] [place] [address] Consulting Physician Cardiovascular Disease 12/25/16 Nava Xiao MD [address] [place] [address] Consulting Physician Anesthesiology 12/25/16 Tianna Richards MD [address] [place] [address] Consulting Physician Gastroenterology 12/25/16 Jaylen Lau MD [address] [place] [address] Consulting Physician Plastic Surgery 04/16/17 Betzaida Oviedo NP [address] [place] [address] Nurse Practitioner Pain Management 09/13/18 Kimani Shukla MD [address] [facility] [place] [address] Consulting Physician Gastroenterology 09/30/18 2 Ramone Lafleur NP [address] [facility] [place] [address] Nurse Practitioner Pain Management 10/27/19 [place] [address] [address] Consulting Physician Plastic Surgery 11/17/20 Xochitl Nails MD [address] [facility] [place] [address] Referring Physician Gastroenterology 02/28/22 Bryan Pierson MD [address] [place] [address] [place] [address] Consulting Physician Pulmonary Disease 10/31/22 Eron Mast MD [address] [place] [address] [place] [address] Consulting Physician Cardiology 01/21/23 Francesco Kam NP [address] [place] [address] [place] [address] Nurse Practitioner Cardiovascular Disease 12/27/22 Nimesh Melvin MD [address] [place] [address] [place] [address] Referring Physician Thoracic Surgery 08/14/23 03/24/24 Khadra Cavazos NP [address] [place] [address] [facility] [address] [place] [address] Nurse Practitioner Cardiothoracic Surgery 08/14/23 Rufina Mccall MA [address] [place] [address] [address] [place] [address] [employer] Care Drop Forger Helper 11/06/23 11/06/23 Bunny Solorzano MD [address] [place] [address] [address] [place] [address] Consulting Physician Plastic Surgery 05/09/21 11/20/24 Khadra Cavazos, JULIO CESAR [address] [place] [address] [facility] [address] [place] [address] Nurse Practitioner Cardiothoracic Surgery 11/07/23 Nir Hastings MD [address] [facility] DEPT OTOLARYNGOLOGY, [address] [address] Consulting Physician Otolaryngology 03/25/24 07/16/24 Rahul Herr RN [address] [place] [address] [address] [place] [address] Distribution Center Supervisor 05/08/24 05/18/24 Michele Monroe MD [address] [address] Consulting Physician Infectious Diseases 07/15/24 Jane Fierro RN [address] [place] [address] [address] [place] [address] Distribution Center Supervisor 07/16/24 08/06/24 Eliel Benitez, BERTRAND [address] [place] [address] [address] [place] [address] Distribution Center Supervisor 08/21/24 09/03/24 Susan Herrera MA [address] [facility] [address] [place] [address] ACO Care Drop Forger Helper 11/02/24 11/03/24 Nir Hastings MD [address] [facility] [address] [place] [address] Consulting Physician Otolaryngology 07/27/24 Araceli Bolaños MA [address] [facility] [address] [place] [address] ACO Care Drop Forger Helper 02/05/25 02/10/25 Siobhan Walls, BUTTONER [address] [place] [address] [address] [place] [address] Nurse Practitioner Pulmonary Disease 10/01/24 documented as of this encounter
--- OUTSIDE RECORDS SUMMARY | 2025-04-06 18:00 | XMS_ITS | Encounter Summary ---
Author Organization [facility] Address [address] [place] [address] Phone Care Team Providers Care News Gathering Technician Name Role Phone Aldair Rodriguez MD Primary Care Provider [phone] Ro Kirby MD Unavailable Nava Xiao MD Unavailable [phone] Tianna Richards MD Unavailable [phone] Jaylen Lau MD Unavailable [phone] Betzaida Oviedo NP Unavailable Ramone Lafleur NP Unavailable [phone] Bre Nieto MD Unavailable Xochitl Nails MD Unavailable [phone] Bryan Pierson MD Unavailable Eron Mast MD Unavailable [phone] Francesco Kam AUDIO VISUAL FACILITIES ENGINEER Unavailable [phone] Nimesh Melvin MD Unavailable Khadra Cavazos NP Unavailable [phone] Rufina Mccall MA Unavailable [phone] Bunny Solorzano MD Unavailable [phone] Khadra Cavazos NP Unavailable [phone] Nir Hastings MD Unavailable [phone] Rahul Herr RN Unavailable Michele Monroe MD Unavailable [phone] Jane Fierro RN Unavailable Eliel Benitez RN Unavailable [phone] Susan Herrera MA Unavailable Unavailable Nir Hastings MD Unavailable Araceli Bolaños MA Unavailable Siobhan Walls NP Unavailable [phone] Encounter Details Date Type Department Care Team (Late st Contact Info) Description 04/21/2022 Orders Only [facility] [address] [place] [id number] Aldair Rodriguez MD [address] [place] [address] Social History Tobacco Use Types Packs/Day Years Used Date Smoking Tobacco: Former Cigarettes 1 39 0 06/13/1975 - 06/13/2014 Smokeless Tobacco: Never Alcohol Use Standard Drinks/Week Comments Yes 0 (1 standard drink = 0.6 oz pur e alcohol) 3-4x/week AUDIT-C Answer Date Recorded Q1: How often do you have a drink containing alc ohol? 2-4 times a month 02/28/2022 Average Number of Drinks Not on file 022 Frequency of Binge Drinking Not on file 02/10 PHQ-2 Answer Date Recorded PHQ-2 Total Score (If total score is 3 or more points, staff should administer the PHQ-9) 0 12/23/2021 Sex and Gender Information Value Date Recorded Sex Assigned at Not on file Legal Sex Male 7:11 PM REPTILE FARMER Gender Identity Male 10/25/2024 9:48 AM CDT Sexual Orientation Mccartney 10/25/2024 9: 48 AM CDT documented as of this encounter Plan of Treatment Upcoming Encounters Date Type Department Care Team (Late st Contact Info) Description 06/02/2025 11:15 AM REPTILE FARMER Hospital Encounter [facility] [address] [address] [address] Xochitl Nails MD [address] [place] [address] 06/02/2025 11:15 AM REPTILE FARMER - 06/02/2025 12:00 PM REPTILE FARMER Surgery [facility] [address] [address] [address] Xochitl Nails MD [address] [place] [address] COLONOSCOPY Scheduled Procedures Name Priority Associated Diagnoses Date/Ti me COLONOSCOPY History of colon polyps 06/02/2025 11:15 AM REPTILE FARMER documented as of this encounter Procedures Procedure Name Priority Date/Time Associated Diagnosis Comments SCAN - RADIOLOGY/IMAGING 04/21/2022 documented in this encounter Results * SCAN - RADIOLOGY/IMAGING (04/21/2022) Anatomical Region Laterality Modality Other Aldair Rodriguez MD Final Result documented in this encounter Visit Diagnoses Not on filedocumented [...] COVID: Suspected 04/06/2024 04/06/2024 04/06/2024 3:53 PM REPTILE FARMER C. difficile suspected 06/08/2024 06/12/202406/09 3:07 AM REPTILE FARMER C. difficile suspected 06/12/2024 06/12/202406/12 10:34 PM REPTILE FARMER COVID: Suspected 07/11/2024 07/11/2024 07/11/2024 5:10 AM REPTILE FARMER COVID: Suspected 07/16/2024 07/16/2024 07/16/2024 5:23 PM REPTILE FARMER COVID: Suspected 08/13/2024 08/13/2024 08/13/2024 11:53 PM CDT documented as of this encounter Care Teams News Gathering Technician Relationship Specialty Start Date End Date Aldair Rodriguez MD [address] [place] [address] PCP - General 10/12/14 Ro Kirby MD [address] [place] [address] Consulting Physician Cardiovascular Disease 12/25/16 Nava Xiao MD [address] [place] [address] Consulting Physician Anesthesiology 12/25/16 Tianna Richards MD [address] [place] [address] Consulting Physician Gastroenterology 12/25/16 Jaylen Lau MD [address] [place] [address] Consulting Physician Plastic Surgery 04/16/17 Betzaida Oviedo AUDIO VISUAL FACILITIES ENGINEER [address] [place] [address] Nurse Practitioner Pain Management 09/13/18 Ramone Lafleur NP [address] [place] [address] Nurse Practitioner Pain Management 10/27/19 [place] [address] [id number] Consulting Physician Plastic Surgery 11/17/20 Xochitl Nails MD [address] [place], [place] [address] Referring Physician Gastroenterology 02/28/22 Bryan Pierson MD [address] [facility] [place] [address] Consulting Physician Pulmonary Disease 10/31/22 Eron Mast MD [address] [facility] [place] [address] Consulting Physician Cardiology 01/21/23 Francesco Kam NP [address] [facility] [place] [address] Nurse Practitioner Cardiovascular Disease 12/27/22 Nimesh Melvin MD [address] [place] [address] [place] [address] Referring Physician Thoracic Surgery 08/14/23 03/24/24 Khadra Cavazos, AUDIO VISUAL FACILITIES ENGINEER [address] [place] [address] [address] [place] [address] Nurse Practitioner Cardiothoracic Surgery 08/14/23 Rufina Mccall MA [address] [place] [address] [address] [place] [address] ACO Care Homeopathic Doctor 11/06/23 11/06/23 Bunny Solorzano MD [address] [place] [address] [facility] [address] [place] [address] Consulting Physician Plastic Surgery 05/09/21 11/20/24 Khadra Cavazos, JULIO CESAR [address] [place] [address] [address] [place] [address] Nurse Practitioner Cardiothoracic Surgery 11/07/23 Nir Hastings MD 49[address] [facility] OTOLARYNGOLOGY, [address] [address] Consulting Physician Otolaryngology 03/25/24 07/16/24 Rahul Herr RN [address] [place] [address] [address] [place] [address] Salon Sales Consultant 05/08/24 05/18/24 Michele Monroe MD [address] [facility] [address] [place] [address] Consulting Physician Infectious Diseases 07/15/24 Jane Fierro RN [address] [place] [address] [address] [place] [address] Salon Sales Consultant 07/16/24 08/06/24 Eliel Benitez RN [address] [place] [address] Drive [address] [place] [address] Salon Sales Consultant 08/21/24 09/03/24 Susan Herrera MA [address] [facility] [address] [place] [address] ACO Care Homeopathic Doctor 11/02/24 11/03/24 Nir Hastings MD 49[address] [facility] [address] [place] [address] Consulting Physician Otolaryngology 07/27/24 Araceli Bolaños MA [address] [facility] [address] [place] [address] ACO Care Homeopathic Doctor 02/05/25 02/10/25 Siobhan Walls, AUDIO VISUAL FACILITIES ENGINEER [address] [place] [address] [address] [place] [address] Nurse Practitioner Pulmonary Disease 10/01/24 documented as of this encounter
--- OUTSIDE RECORDS SUMMARY | 2025-04-06 18:01 | XMS_ITS | Encounter Summary ---
Author Organization [facility] Address [address] [place] [address] Phone Care Team Providers Care Maintenance Electrician Name Role Phone Aldair Rodriguez MD Primary Care Provider [phone] Ro Kirby MD Unavailable [phone] Nava Xiao MD Unavailable [phone] Tianna Richards MD Unavailable [phone] Jaylen Lau MD Unavailable [phone] Betzaida Oviedo TABLE MACHINE OPERATOR Unavailable [phone] Kimani Shukla MD Unavailable Ramone Lafleur NP Unavailable [phone] Bre Nieto MD Unavailable [phone] Xochitl Nails MD Unavailable [phone] Bryan Pierson MD Unavailable Angy-Eron Mcgill MD Unavailable [phone] Francesco Kam TABLE MACHINE OPERATOR Unavailable [phone] Nimesh Melvin MD Unavailable Khadra Cavazos NP Unavailable [phone] Rufina Mccall MA Unavailable Bunny Solorzano MD Unavailable [phone] Khadra Cavazos NP Unavailable [phone] Nir Hastings MD Unavailable Rahul Herr RN Unavailable [phone] Michele Monroe MD Unavailable [phone] Jane Fierro RN Unavailable [phone] Eliel Benitez RN Unavailable Susan Herrera MA Unavailable Unavailable [facility] Unavailable Araceli Bolaños MA Unavailable Siobhan Walls TABLE MACHINE OPERATOR Unavailable [phone] Encounter Details Date Type Department Care Team (Late st Contact Info) Description 01/31/2017 Orders Only [facility] [address] [place] [address] Aldair Rodriguez MD [address]AYANA[address] [place] [address] Social History Tobacco Use Types Packs/Day Years Used Date Smoking Tobacco: Former Cigarettes Q uit: 05/13/2012 Alcohol Use Standard Drinks/Week Comments Yes 0 (1 standard drink = 0.6 oz pur e alcohol) Sex and Gender Information Value Date Recorded Sex Assigned at Not on file Legal Sex Male 7:11 PM PANTOGRAPH OPERATOR Gender Identity Male 10/25/2024 9:48 AM CDT Sexual Orientation Mccartney 10/25/2024 9: 48 AM CDT documented as of this encounter Plan of Treatment Upcoming Encounters Date Type Department Care Team (Late st Contact Info) Description 06/02/2025 11:15 AM PANTOGRAPH OPERATOR Hospital Encounter [facility] [address] [address] [place] [address] Xochitl Nails MD [address] [place] [address] 06/02/2025 11:15 AM PANTOGRAPH OPERATOR - 06/02/2025 12:00 PM PANTOGRAPH OPERATOR Surgery [facility] [address] [address] [address] Xochitl Nails MD [address] [place] [address] COLONOSCOPY Scheduled Procedures Name Priority Associated Diagnoses Date/Ti me COLONOSCOPY History of colon polyps 06/02/2025 11:15 AM PANTOGRAPH OPERATOR documented as of this encounter Procedures Procedure Name Priority Date/Time Associated Diagnosis Comments SCAN - RADIOLOGY/IMAGING 01/31/2017 4:14 PM CDT documented in this encounter Results * SCAN - RADIOLOGY/IMAGING (01/31/2017 4:14 PM CDT) Anatomical Region Laterality Modality Other Aldair Rodriguez MD Final Result documented in this encounter Visit Diagnoses Not on filedocumented in this encounter Additional Health Concerns Infection Onset Date Last Indicated Resolved Time COVID: Suspected 12/22/2021 12/22/2021 12/22/2021 6:45 PM CDT MDR gram neg/ESBL Comment:10/02/22 CRE Culture for surveillance performed and results are NEGATIVE. Christiano Chi, ANA M Patients who received care at a healthcare [...] COVID: Suspected 04/06/2024 04/06/2024 04/06/2024 3:53 PM PANTOGRAPH OPERATOR C. difficile suspected 06/08/2024 06/12/202406/09 3:07 AM PANTOGRAPH OPERATOR C. difficile suspected 06/12/2024 06/12/202406/12 10:34 PM PANTOGRAPH OPERATOR COVID: Suspected 07/11/2024 07/11/2024 07/11/2024 5:10 AM PANTOGRAPH OPERATOR COVID: Suspected 07/16/2024 07/16/2024 07/16/2024 5:23 PM PANTOGRAPH OPERATOR COVID: Suspected 08/13/2024 08/13/2024 08/13/2024 11:53 PM CDT documented as of this encounter Care Teams Maintenance Electrician Relationship Specialty Start Date End Date Aldair Rodriguez MD [address] [place] [address] PCP - General 10/12/14 Ro Kirby MD [address] [place] [address] Consulting Physician Cardiovascular Disease 12/25/16 Nava Xiao MD [address] [place] [address] Consulting Physician Anesthesiology 12/25/16 Tianna Richards MD [address] [place] [address] Consulting Physician Gastroenterology 12/25/16 Jaylen Lau MD [address] [place] [address] Consulting Physician Plastic Surgery 04/16/17 Betzaida Oviedo TABLE MACHINE OPERATOR [address] [place] [address] Nurse Practitioner Pain Management 09/13/18 Kimani Shukla MD [address] [place] [address] Consulting Physician Gastroenterology 09/30/18 2 Ramone Lafleur NP [address] [place] [address] Nurse Practitioner Pain Management 10/27/19 [place] [address] [address] Consulting Physician Plastic Surgery 11/17/20 Xochitl Nails MD [address] [place] [address] Referring Physician Gastroenterology 02/28/22 Bryan Pierson MD [address] [place] [address] [place] [address] Consulting Physician Pulmonary Disease 10/31/22 Eron Mast MD [address] [place] [address] [place] [address] Consulting Physician Cardiology 01/21/23 Francesco Kam NP [address] [place] [address] [place] [address] Nurse Practitioner Cardiovascular Disease 12/27/22 Nimesh Melvin MD [address] [place] [address] [place] [address] Referring Physician Thoracic Surgery 08/14/23 03/24/24 Khadra Cavazos, TABLE MACHINE OPERATOR [address] [place] [address] [address] [place] [address] Nurse Practitioner Cardiothoracic Surgery 08/14/23 Rufina Mccall MA [address] [place] [address] [address] [place] [address] ACO Care Senior Principal 11/06/23 11/06/23 Bunny Solorzano MD [address] [place] [address] [address] [place] [address] Consulting Physician Plastic Surgery 05/09/21 11/20/24 Khadra Cavazos, TABLE MACHINE OPERATOR [address] [place] [address] [address] [place] [address] Nurse Practitioner Cardiothoracic Surgery 11/07/23 Nir Hastings MD 4921 [facility] OTOLARYNGOLOGY, [address] [address] Consulting Physician Otolaryngology 03/25/24 07/16/24 Rahul Herr RN [address] [place] [address] [address] [place] [address] Shingle Packer 05/08/24 05/18/24 Michele Monroe MD [address] [facility] [address] [place] [address] Consulting Physician Infectious Diseases 07/15/24 Jane Fierro RN [address] [place] [address] [address] [place] [address] Shingle Packer 07/16/24 08/06/24 Eliel Benitez RN [address] [place] [address] [address] [place] [address] Shingle Packer 08/21/24 09/03/24 Susan Herrera MA [address] [facility] [address] [place] [address] ACO Care Senior Principal 11/02/24 11/03/24 Nir Hastings MD 49[address] [facility] [address] [place] [address] Consulting Physician Otolaryngology 07/27/24 Araceli Bolaños MA [address] [facility] [address] [place] [address] ACO Care Senior Principal 02/05/25 02/10/25 Siobhan Walls, TABLE MACHINE OPERATOR [address] [place] [address] [address] [place] [address] Nurse Practitioner Pulmonary Disease 10/01/24 documented as of this encounter
--- OUTSIDE RECORDS SUMMARY | 2025-04-06 18:01 | XMS_ITS | Encounter Summary ---
Author Organization [facility] Address [address] [place] [address] Care Team Providers Care Marine Superintendent Name Role Phone Aldair Rodriguez MD Primary Care Provider [phone] Ro Kirby MD Unavailable [phone] Nava Xiao MD Unavailable [phone] Tianna Richards MD Unavailable [phone] Jaylen Lau MD Unavailable [phone] Betzaida Oviedo ICE CUTTER Unavailable [phone] Ramone Lafleur ICE CUTTER Unavailable [phone] Bre Nieto MD Unavailable [phone] Xochitl Nails MD Unavailable [phone] Bryan Pierson MD Unavailable Eron Mast MD Unavailable [phone] Francesco Kam NP Unavailable [phone] Khadra Cavazos NP Unavailable [phone] Bunny Solorzano MD Unavailable + [phone] Michele Monroe MD Unavailable [phone] Nir Hastings MD Unavailable [phone] Araceli Bolaños MA Unavailable Siobhan Walls NP Unavailable [phone] Encounter Details Date Type Department Care Team (Late st Contact Info) Description 11/11/2024 Orders Only [facility] [address] [place] [address] Aldair Rodriguez MD [address] [place] [address] Social History Tobacco Use Types Packs/Day Years Used Date Smoking Tobacco: Every Day Cigarettes 1 44 Started: 1975; Last attempted to quit: 2019 Vaping Started: 2022 Passive Smoke Exposure: Past Smokeless Tobacco: Never Alcohol Use Standard Drinks/Week Comments Not Currently 0 (1 standard drink = 0.6 oz pur e alcohol) [facility] Utilities Answer Date Recorded In the past 12 months has [facility], gas, oil, or water [employer] threatened to shut off services in your home? No 10/28/2024 Social Connection and Isolation Panel Answer Date Recorded In a typical week, how many times do you talk on the phone with family, friends, or neighbors? More than three times a week 10/28/2024 How often do you get togethe r with friends or relatives? More than three times a week 10/28/2024 How often do you attend chur or samaritan services? Never 10/28/2024 Do you belong to any clubs o r organizations such as mu-ism groups, unions, fraternal or athletic groups, or school groups? No 10/28/2024 How often do you attend meet ings of the clubs or organizations you belong to? Never 10/28/2024 Are you , , di vorced, , never , or living with a partner? Living with partner 10/28/2024 AUDIT-C Answer Date Recorded Q1: How often do you have a drink containing alc ohol? Monthly or less 10/06/2024 Q2: How many drinks containi ng alcohol do you have on a typical day when you are drinking? 3 or 4 10/06/2024 Q3: How often do you have si x or more drinks on one occasion? Never 10/06/2024 Overall Financial Resource Strain (CARDIA) Answe r Date Recorded How hard is it for you to pa y for the very basics like food, housing, medical care, and heating? Not hard at all 10/28/2024 PHQ-2 Answer Date Recorded PHQ-2 Total Score (If total score is 3 or more points, staff should administer the PHQ-9) 0 01/15/2024 Hunger Vital Sign Answer Date Recorded Within the past 12 months, y ou worried that your food would run out before you got the money to buy more. Never true 10/29/19 25 Within the past 12 months, t he food you bought just didn't last and you didn't have money to get more. Never true 10/28/2024 PRAPARE - Transportation Answer Date Re corded In the past 12 months, has l ack of transportation kept you from medical appointments or from getting medications? No 10/11 In the past 12 months, has l ack of transportation kept you from meetings, work, or from getting things needed for daily living? No 10/28/2024 Housing Stability Vital Sign Answer Jose Antonio e Recorded In the last 12 months, was t here a time when you were not able to pay the mortgage or rent on time? No 03/12/2023 In the last 12 months, how many places have you lived? 1 03/12/2023 In the last 12 months, was t here a time when you did not have a steady place to sleep or slept in a skilled nursing (including now)? No 03/12/2023 Housing Stability Vital Sign Answer Jose Antonio e Recorded In the last 12 months, was t here a time when you were not able to pay the mortgage or rent on time? No 10/28/2024 In the past 12 months, how m any times have you moved where you were living? 0 10/28/2024 At any time in the past 12 m [facility], were you homeless or living in a skilled nursing (including now)? No 10/28/2024 Personal Safety Answer Date Recorded Have you ever been in or are you currently in a harmful physical or emotional relationship or is someone making you feel afraid or unsafe? Denies 10/26/2024 Education Answer Date Recorded What is the highest level of school you have completed or the highest degree you have received? Some college, no degree 11/26/2022 Sex and Gender Information Value Date Recorded Sex Assigned at Not on file Legal Sex Male 7:11 PM ASSOCIATE PROFESSOR OF ARCHAEOLOGY Gender Identity Male 10/25/2024 9:48 AM CDT Sexual Orientation Mccartney 10/25/2024 9: 48 AM CDT documented as of this encounter Plan of Treatment Upcoming Encounters Date Type Department Care Team (Late st Contact Info) Description 06/02/2025 11:15 AM ASSOCIATE PROFESSOR OF ARCHAEOLOGY Hospital Encounter [facility] Endoscopy [address] [place] [address] Xochitl Nails MD [address] [place] [address] 06/02/2025 11:15 AM ASSOCIATE PROFESSOR OF ARCHAEOLOGY - 06/02/2025 12:00 PM ASSOCIATE PROFESSOR OF ARCHAEOLOGY Surgery [facility] Endoscopy [address] [address] [address] Xochitl Nails MD [address] [place] [address] COLONOSCOPY Scheduled Procedures Name Priority Associated Diagnoses Date/Ti me COLONOSCOPY History of colon polyps 06/02/2025 11:15 AM ASSOCIATE PROFESSOR OF ARCHAEOLOGY documented as of this encounter Procedures Procedure Name Priority Date/Time Associated Diagnosis Comments SCAN - RADIOLOGY/IMAGING 11/11/2024 documented in this encounter Results * SCAN - RADIOLOGY/IMAGING (11/11/2024) Anatomical Region Laterality Modality Other us Aldair Rodriguez MD Final Result documented in this encounter Visit Diagnoses Not on filedocumented in this encounter Care Teams Marine Superintendent Relationship Specialty Start Date End Date Aldair Rodriguez MD [address] [place] [address] PCP - General 10/12/14 Ro Kirby MD [address] [place] [address] Consulting Physician Cardiovascular Disease 12/25/16 Nava Xiao MD [address] [place] [address] Consulting Physician Anesthesiology 12/25/16 Tianna Richards MD [address] [place] [address] Consulting Physician Gastroenterology 12/25/16 Jaylen Lau MD [address] [place] [address] Consulting Physician Plastic Surgery 04/16/17 Betzaida Oviedo NP [address] [place] [address] Nurse Practitioner Pain Management 09/13/18 Ramone Lafleur NP [address] [place] [address] Nurse Practitioner Pain Management 10/27/19 [place] [address] [facility] [address] [place] [address] Consulting Physician Plastic Surgery 11/17/20 Xochitl Nails MD [address] [place] [address] Referring Physician Gastroenterology 02/28/22 Bryan Pierson MD [address] [place] [address] Consulting Physician Pulmonary Disease 10/31/22 Eron Mast MD [address] [place] [address] [address] [place] [address] Consulting Physician Cardiology 01/21/23 Francesco Kam NP [address] [place] [address] [address] [place] [address] Nurse Practitioner Cardiovascular Disease 12/27/22 Khadra Cavazos NP [address] [place] [address] [address] [place] [address] Nurse Practitioner Cardiothoracic Surgery 08/14/23 Bunny Solorzano MD [address] [place] [address] [address] [place] [address] Consulting Physician Plastic Surgery 05/09/21 11/20/24 Michele Monroe MD [address] [facility] [address] [place] [address] Consulting Physician Infectious Diseases 07/15/24 Nir Hastings MD [address] [facility] [address] [place] [address] Consulting Physician Otolaryngology 07/27/24 Araceli Bolaños MA [address] [place] [address] [address] [place] [address] ACO Care Grain Sampler 02/05/25 02/10/25 Siobhan Walls NP [address] [place] [address] [address] [place] [address] Nurse Practitioner Pulmonary Disease 10/01/24 documented as of this encounter
--- OUTSIDE RECORDS SUMMARY | 2025-04-06 18:01 | XMS_ITS | Encounter Summary ---
Author Organization [facility] Address [address] [place] [address] Care Team Providers Care Director Of Engineering Name Role Phone Aldair Rodriguez MD Primary Care Provider [phone] Ro Kirby MD Unavailable [phone] Nava Xiao MD Unavailable [phone] Tianna Richards MD Unavailable [phone] Jaylen Lau MD Unavailable [phone] Betzaida Oviedo RN TRANSPORT Unavailable [phone] Ramone Lafleur RN TRANSPORT Unavailable [phone] Bre Nieto MD Unavailable [phone] Xochitl Nails MD Unavailable [phone] Bryan Pierson MD Unavailable Eron Mast MD Unavailable [phone] Francesco Kam NP Unavailable [phone] Khadra Cavazos NP Unavailable [phone] Michele Monroe MD Unavailable + [phone] Nir Hastings MD Unavailable [phone] Siobhan Walls NP Unavailable Encounter Details Date Type Department Care Team (Late st Contact Info) Description 02/22/2025 Results Follow-Up [facility] [address] [place] [address] Aldair Rodriguez MD [address] [place] [address] CBC with auto differential, Comprehensive metabolic panel, HIV-1 RNA PCR, quantitative Blood, Additional followed-up results: 9 Social History Tobacco Use Types Packs/Day Years Used Date Smoking Tobacco: Former Cigarettes 1 44 1 2019 Vaping Started: 2022 Passive Smoke Exposure: Past Smokeless Tobacco: Never Alcohol Use Standard Drinks/Week Comments Not Currently 0 (1 standard drink = 0.6 oz pur e alcohol) Social Connection and Isolation Panel Answer Date Recorded In a typical week, how many times do you talk on the phone with family, friends, or neighbors? More than three times a week 10/28/2024 How often do you get togethe r with friends or relatives? More than three times a week 10/28/2024 How often do you attend chur ch or buddhist services? Never 10/28/2024 Do you belong to any clubs o r organizations such as muslim groups, unions, fraternal or athletic groups, or school groups? No 10/28/2024 How often do you attend meet ings of the clubs or organizations you belong to? Never 10/28/2024 Are you , , di vorced, , never , or living with a partner? Living with partner 10/28/2024 Overall Financial Resource Strain (CARDIA) Answe r Date Recorded How hard is it for you to pa y for the very basics like food, housing, medical care, and heating? Not hard at all 10/28/2024 PHQ-2 Answer Date Recorded PHQ-2 Total Score (If total score is 3 or more points, staff should administer the PHQ-9) 0 02/24/2025 PRAPARE - Transportation Answer Date Re corded [...] place to sleep or slept in a fci (including now)? No 03/12/2023 Housing Stability Vital [...] [facility] in the [facility] were you [facility] or living in a fci (including now)? No 10/28/2024 Social Connection and Isolation Panel Answer Date Recorded In a typical week, how many times do you talk on the phone with family, friends, or neighbors? More than three times a week 02/04/2025 How often do you get togethe r with friends or relatives? More than three times a week 02/04/2025 How often do you attend chur ch or buddhist services? Never 02/04/2025 Do you belong to any clubs o r organizations such as muslim groups, unions, fraternal or athletic groups, or school groups? No 02/04/2025 How often do you attend meet ings of the clubs or organizations you belong to? Never 02/04/2025 Are you , , di vorced, , never , or living with a partner? Living with partner 02/04/2025 AUDIT-C Answer Date Recorded Q1: How often do you have a drink containing alc ohol? Monthly or less 02/24/2025 Q2: How many drinks containi ng alcohol do you have on a typical day when you are drinking? 5 or 6 02/24/2025 Q3: How often do you have si x or more drinks on one occasion? Monthly 02/24/2025 Overall Financial Resource Strain (CARDIA) Answe r Date Recorded How hard is it for you to pa y for the very basics like food, housing, medical care, and heating? Not hard at all 02/04/2025 Hunger Vital Sign Answer Date Recorded Within the past 12 months, y ou worried that your food would run out before you got the money to buy more. Never true 02/05/20 Within the past 12 months, t he food you bought just didn't last and you didn't have money to get more. Never true 02/04/2025 PRAPARE - Transportation Answer Date Re corded In the past 12 months, has l ack of transportation kept you from medical appointments or from getting medications? No 01/12 In the past 12 months, has l ack of transportation kept you from meetings, work, or from getting things needed for daily living? No 02/04/2025 Housing Stability Vital Sign Answer Jose Antonio e Recorded In the last 12 months, was t here a time when you were not able to pay the mortgage or rent on time? No 02/04/2025 In the past 12 months, how m any times have you moved where you were living? 0 02/04/2025 At any time in the [facility] were you homeless or living in a fci (including now)? No 02/04/2025 [facility] Utilities Answer Date Recorded In the past 12 months has th e electric, gas, oil, or water company threatened to shut off services in your home? No 02/04/2025 Personal Safety Answer Date Recorded Have you ever been in or are you currently in a harmful physical or emotional relationship or is someone making you feel afraid or unsafe? Denies 02/02/2025 Education Answer Date Recorded What is the highest level of school you have completed or the highest degree you have received? Some college, no degree 11/26/2022 Sex and Gender Information Value Date Recorded Sex Assigned at Not on file Legal Sex Male 7:11 PM TUNNEL MAN Gender Identity Male 10/25/2024 9:48 AM CDT Sexual Orientation [place] 10/25/2024 9: 48 AM CDT documented as of this encounter Functional Status * Question Answer Date of Assessment Author One or more falls in the last year 0 02/24/2025 2:00 PM CDT Stephanie Dickens MA * AUDIT-C Score Answer Date of Assessment Author 5 02/24/2025 2:12 PM CDT Juani Peralta MA * Alcohol Use Question Answer Date of Assessment Author Q1: How often do you have a drink containing alcohol? Monthly or less 02/24/2025 2:12 PM CDT Stephanie Dickens MA Q2: How many drinks containing alcohol do you have on a typical day when you are drinking? 5 or 6 02/24/2025 2:12 PM CDT Rashmi Dickens MA Q3: How often do you have six or more drinks on one occasion? Monthly 02/24/2025 2:12 PM CDT Stephanie Dickens MA documented as of this encounter Plan of Treatment Upcoming Encounters Date Type Department Care Team (Late st Contact Info) Description 06/02/2025 11:15 AM TUNNEL MAN Hospital Encounter [facility] Endoscopy [address] [address] [address] Xochitl Nails MD [address] [facility] [place] [address] 06/02/2025 11:15 AM TUNNEL MAN - 06/02/2025 12:00 PM TUNNEL MAN Surgery [facility] Endoscopy [address] [address] [address] Xochitl Nails MD [address] [facility] [place] [address] COLONOSCOPY Scheduled Procedures Name Priority Associated Diagnoses Date/Ti me COLONOSCOPY History of colon polyps 06/02/2025 11:15 AM TUNNEL MAN documented as of this encounter Visit Diagnoses Not on filedocumented in this encounter Care Teams Director Of Engineering Relationship Specialty Start Date End Date Aldair Rodriguez MD [address] [place] [address] PCP - General 10/12/14 Ro Kirby MD [address] [place] [address] Consulting Physician Cardiovascular Disease 12/25/16 Nava Xiao MD [address] [place] [address] Consulting Physician Anesthesiology 12/25/16 Tianna Richards MD [address] [place] [address] Consulting Physician Gastroenterology 12/25/16 Jaylen Lau MD [address] [place] [address] Consulting Physician Plastic Surgery 04/16/17 Betzaida Oviedo NP [address] [place] [address] Nurse Practitioner Pain Management 09/13/18 Ramone Lafleur NP [address] [place] [address] Nurse Practitioner Pain Management 10/27/19 [place] [address] [facility] [address] [place] [address] Consulting Physician Plastic Surgery 11/17/20 Xochitl Nails MD [address] [place] [address] Referring Physician Gastroenterology 02/28/22 Bryan Pierson MD [address] [place] [address] [place] [address] Consulting Physician Pulmonary Disease 10/31/22 Eron Mast MD [address] [place] [address] [place] [address] Consulting Physician Cardiology 01/21/23 Francesco Kam NP [address] [place] [address] [place] [address] Nurse Practitioner Cardiovascular Disease 12/27/22 Khadra Cavazos NP [address] [place] [address] [place] [address] Nurse Practitioner Cardiothoracic Surgery 08/14/23 Michele Monroe MD [address] [address] Consulting Physician Infectious Diseases 07/15/24 Nir Hastings MD [address] [address] Consulting Physician Otolaryngology 07/27/24 Siobhan Walls, RN TRANSPORT [address] [place] [address] [place] [address] Nurse Practitioner Pulmonary Disease 10/01/24 documented as of this encounter
--- OUTSIDE RECORDS SUMMARY | 2025-04-06 18:01 | XMS_ITS | Encounter Summary ---
Author Organization [facility] Address [address] [place] [address] Phone Care Team Providers Care Telecommunications Technician Name Role Phone Aldair Rodriguez MD Primary Care Provider [phone] Ro Kirby MD Unavailable [phone] Nava Xiao MD Unavailable [phone] Tianna Richards MD Unavailable [phone] Jaylen Lau MD Unavailable [phone] Betzaida Oviedo PHYSICAL EDUCATION AIDE Unavailable [phone] Kimani Shukla MD Unavailable Ramone Lafleur NP Unavailable [phone] Bre Nieto MD Unavailable Xochitl Nails MD Unavailable [phone] Bryan Pierson MD Unavailable Angy-Eron Mcgill MD Unavailable [phone] Francesco Kam PHYSICAL EDUCATION AIDE Unavailable [phone] Nimesh Melvin MD Unavailable Khadra Cavazos NP Unavailable [phone] Rufina Mccall MA Unavailable Bunny Solorzano MD Unavailable [phone] Khadra Cavazos NP Unavailable [phone] Nir Hastings MD Unavailable [phone] Rahul Herr RN Unavailable [phone] Michele Monroe MD Unavailable [phone] Jane Fierro RN Unavailable [phone] Eliel Benitez RN Unavailable [phone] Susan Herrera MA Unavailable Unavailable [facility] hospital[facility]ir ru[facility] MD Unavailable Araceli Bolaños MA Unavailable Siobhan Walls PHYSICAL EDUCATION AIDE Unavailable [phone] Encounter Details Date Type Department Care Team (Late st Contact Info) Description 02/05/2017 Orders Only [facility] [address] [place] [address] Aldair Rodriguez MD [address] [place] [address] Social History Tobacco Use Types Packs/Day Years Used Date Smoking Tobacco: Former Cigarettes Q uit: 05/13/2012 Alcohol Use Standard Drinks/Week Comments Yes 0 (1 standard drink = 0.6 oz pur e alcohol) Sex and Gender Information Value Date Recorded Sex Assigned at Not on file Legal Sex Male 7:11 PM UNIT CONTROLLER Gender Identity Male 10/25/2024 9:48 AM CDT Sexual Orientation [place] 10/25/2024 9: 48 AM CDT documented as of this encounter Plan of Treatment Upcoming Encounters Date Type Department Care Team (Late st Contact Info) Description 06/02/2025 11:15 AM UNIT CONTROLLER Hospital Encounter [facility] [address] [place] [address] Xochitl Nails MD [address] [place] [address] 06/02/2025 11:15 AM UNIT CONTROLLER - 06/02/2025 12:00 PM UNIT CONTROLLER Surgery [facility] Endoscopy [address] [address] [address] Xochitl Nails MD [address] [place] [address] COLONOSCOPY Scheduled Procedures Name Priority Associated Diagnoses Date/Ti me COLONOSCOPY History of colon polyps 06/02/2025 11:15 AM UNIT CONTROLLER documented as of this encounter Procedures Procedure Name Priority Date/Time Associated Diagnosis Comments SCAN - RADIOLOGY/IMAGING 02/05/2017 9:13 AM CDT documented in this encounter Results * SCAN - RADIOLOGY/IMAGING (02/05/2017 9:13 AM CDT) Anatomical Region Laterality Modality Other Aldair [...] COVID: Suspected 04/06/2024 04/06/2024 04/06/2024 3:53 PM UNIT CONTROLLER C. difficile suspected 06/08/2024 06/12/202406/09 3:07 AM UNIT CONTROLLER C. difficile suspected 06/12/2024 06/12/202406/12 10:34 PM UNIT CONTROLLER COVID: Suspected 07/11/2024 07/11/2024 07/11/2024 5:10 AM UNIT CONTROLLER COVID: Suspected 07/16/2024 07/16/2024 07/16/2024 5:23 PM UNIT CONTROLLER COVID: Suspected 08/13/2024 08/13/2024 08/13/2024 11:53 PM CDT documented as of this encounter Care Teams Telecommunications Technician Relationship Specialty Start Date End Date Aldair Rodriguez MD [address] [place] [address] PCP - General 10/12/14 Ro Kirby MD [address] [place] [address] Consulting Physician Cardiovascular Disease 12/25/16 Nava Xiao MD [address] [place] [address] Consulting Physician Anesthesiology 12/25/16 Tianna Richards MD [address] [place] [address] Consulting Physician Gastroenterology 12/25/16 Jaylen Lau MD [address] [place] [address] Consulting Physician Plastic Surgery 04/16/17 Betzaida Oviedo NP [address] [place] [address] Nurse Practitioner Pain Management 09/13/18 Kimani Shukla MD [address] [place] [address] Consulting Physician Gastroenterology 09/30/18 2 Ramone Lafleur NP [address] [place] [address] Nurse Practitioner Pain Management 10/27/19 [place] [address] [address] Consulting Physician Plastic Surgery 11/17/20 Xochitl Nails MD [address] [place] [address] Referring Physician Gastroenterology 02/28/22 Bryan Pierson MD [address] [place] [address] [place] [address] Consulting Physician Pulmonary Disease 10/31/22 Eron Mast MD [address] [place] [address] [place] [address] Consulting Physician Cardiology 01/21/23 Francesco Kam NP [address] [place] [address] [place] [address] Nurse Practitioner Cardiovascular Disease 12/27/22 Nimesh Melvin MD [address] [place] [address] [place] [address] Referring Physician Thoracic Surgery 08/14/23 03/24/24 Khadra Cavazos, PHYSICAL EDUCATION AIDE [address] [facility] [address] [place] [address] Nurse Practitioner Cardiothoracic Surgery 08/14/23 Rufina Mccall MA [address] [facility] [address] [place] [address] ACO Care [place] Management Specialist 11/06/23 11/06/23 Bunny Solorzano MD [address] [place] [address] [address] [place] [address] Consulting Physician Plastic Surgery 05/09/21 11/20/24 Khadra Cavazos, PHYSICAL EDUCATION AIDE [address] [place] [address] [address] [place] [address] Nurse Practitioner Cardiothoracic Surgery 11/07/23 Nir Hastings MD [address] [facility] DEPT OTOLARYNGOLOGY, [facility] [address] [place] [address] Consulting Physician Otolaryngology 03/25/24 07/16/24 Rahul Herr RN [address] [place] [address] [address] [place] [address] Business Services Assistant 05/08/24 05/18/24 Michele Monroe MD [address] [facility] [address] [place] [address] Consulting Physician Infectious Diseases 07/15/24 Jane Fierro RN [address] [facility] [address] [place] [address] Business Services Assistant 07/16/24 08/06/24 Eliel Benitez, [place] [address] [facility] [address] [place] [address] Business Services Assistant 08/21/24 09/03/24 Susan Herrera MA [address] [facility] [address] [place] [address] ACO Care [place] Management Specialist 11/02/24 11/03/24 Nir Hastings MD [address] [facility] [address] [place] [address] Consulting Physician Otolaryngology 07/27/24 Araceli Bolaños MA [address] [facility] [address] [place] [address] ACO Care [place] Management Specialist 02/05/25 02/10/25 Siobhan Walls, PHYSICAL EDUCATION AIDE [address] [place] [address] [address] [place] [address] Nurse Practitioner Pulmonary Disease 10/01/24 documented as of this encounter
--- OUTSIDE RECORDS SUMMARY | 2025-04-06 18:01 | XMS_ITS ---
Author Organization [facility] Address [address] [place] [address] Care Team Providers Care Electronics Production Supervisor Name Role Phone Georgiana Edwards MD Primary Care Provider [phone] Ro Kirby MD Unavailable [phone] Nava Xiao MD Unavailable [phone] Tianna Richards MD Unavailable [phone] Jaylen Lau MD Unavailable [phone] Betzaida Oviedo NP Unavailable [phone] Ramone Lafleur WIRE PRODUCTS INSPECTOR Unavailable [phone] Bre Nieto MD Unavailable [phone] Xochitl Nails MD Unavailable [phone] Bryan Pierson MD Unavailable Eron Mast MD Unavailable [phone] Francesco Kam NP Unavailable [phone] Khadra Cavazos NP Unavailable [phone] Michele Monroe MD Unavailable [phone] Nir Hastings MD Unavailable [phone] Siobhan Walls NP Unavailable [phone] Active Problems Problem Noted Date Diagnosed Date History of colon polyps 03/02/2025 Altered mental status 02/03/2025 Pneumonia of both lungs due to infectious organism, unspecified part of lung 02/02/2025 Thrush, oral 11/25/2024 Assessment & Plan (02/28/2025 3:27 PM CDT): Chronic/recurrent problem, he has also had esophageal candidiasis, present for several months, expected to last more than a year, uncontrolled Recurrent oral thrush possibly related to inhaler use. Thrush persists despite rinsing mouth and using nystatin. - Continue nystatin swish and swallow as needed - Reinforce mouth rinsing after inhaler use Assessment & Plan (11/25/2024 2:55 PM CDT): See [facility] HPI/AP. Acute hypoxic respiratory failure 10/28/2024 COPD exacerbation 10/27/2024 Atrial flutter 10/07/2024 Assessment & Plan (02/28/2025 3:27 PM CDT): Chronic, present for 5-6 months and expected to last more than a year, managed with apixaban and diltiazem, aspirin and other antiplatelet therapy is contraindicated due to anticoagulation Atrial flutter managed with diltiazem as needed for palpitations. - Continue diltiazem as needed for palpitations - Continue apixaban to reduce stroke risk. Assessment & Plan (11/24/2024 7:36 PM CDT): See [facility] HPI/AP. Antiplatelet therapy is relatively contraindicated due to being on apixaban. 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 Assessment & Plan (08/14/2024 12:56 PM CDT): New symptom, somewhat vaguely described, comes and goes. *He reports it started y ears ago. It may be getting worse. Symptoms sound a little bit like myoclonus or possibly a dyskinesia. It could be related to medications, or it could be a paretic tremor of some kind. Typically it occurs in the morning and bothers him less later in the day, although he does worry about it when he is driving. I asked him to take a video of the movements for review. Follow-up early as needed, otherwise in three months. 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 Assessment & Plan (07/29/2024 3:53 PM CDT): Chronic, stable ENT appointment 07/27 patient received Botox for temporary treatment Has vocal cord reconstructive surgery scheduled for September/2024 Relative exam findings today: Hoarse voice with speaking Current meds: None Today's Plan: No medications initiated today Follow-up with ENT as scheduled Pneumonia due to infectious organism 07/21/2024 Sepsis, due to unspecified o rganism, unspecified whether acute organ dysfunction present 07/16/2024 Assessment & Plan (07/29/2024 4:00 PM CDT): Acute, resolved Discharge diagnosis: Sepsis 2/2 pneumonia Hx relative to dx: Wills's esophagus, aspiration pneumonia Relative exam findings today: Mild wheezing to right lower lobe, cleared with cough S/p oral Augmentin prednisone S/p IV Zosyn, IV vanc. Switched Zosyn to meropenem; discontinued vancomycin AFB cultures negative, cryptococcus negative MRSA negative Sputum culture: Klebsiella pneumoniae and moderate yeast CXR/CT chest: Tree-in-bud nodularities mixed ground-glass and consolidative opacities consistent with multifocal pneumonia Current meds: None Established with pulmonology Today's Plan: No initiation of new antibiotics today Follow-up with pulmonology as scheduled Continue head of bed elevated per pulmonology recommendations at least 90 Aspiration pneumonia 07/15/2024 Assessment & Plan (11/24/2024 7:36 PM CDT): See [facility] HPI/AP. Assessment & Plan (08/14/2024 12:54 PM CDT): Acute recurrent episodes with several recent hospitalizations, hopefully resolved. Seeing speech therapy for electric stimulation of the swallowing musculature. We will monitor clinically with relatively frequent office visits. Cervical radiculopathy 06/08/2024 Assessment & Plan (06/10/2024 8:46 PM FISCAL SERVICES DIRECTOR): Acute, radicular pain mostly to hands worse in the last month. See HPI for details. Tenderness as noted above, no other acute findings or marked weakness. Will obtain XR cervical spine to r/o worsening arthritis or any other structural changes. Continue pain meds as rxd by pain management. Offered refferral to PT, patient refused at this time. Other insomnia 05/31/2024 Assessment & Plan (05/31/2024 4:45 PM FISCAL SERVICES DIRECTOR): Chronic, controlled on trazodone nightly. Refilled today Malignant neoplasm of lower third of esophagus 1 05/26/2023 Assessment & Plan (04/15/2024 3:31 PM FISCAL SERVICES DIRECTOR): Chronic, hopefully cured after extensive surgical intervention including a partial esophagectomy and gastric pull up. A recent follow-up endoscopy was performed. He is on close observation by the GI service at [facility]. He takes dual acid suppression therapy. Continue same. Hypophosphatemia 10/28/2023 Assessment & Plan (10/28/2023 2:50 PM CDT): - replete as needed - monitor Vocal cord dysfunction 10/28/2023 Assessment & Plan (10/30/2023 12:44 PM CDT): - Left cord out - ENT injection 10/28 - FEES with SHIP SUPERINTENDENT, cleared for thin/regular liquids COPD (chronic obstructive pulmonary disease) Overview (01/15/2024): PFT 10/03/2023: The patient has a moderate obstructive ventilatory defect which did not improve significantly following bronchodilators. This should not preclude a clinical trial of bronchodilators if indicated. Assessment & Plan (10/02/2024 11:49 AM CDT): Continue Breztri 2 puffs twice daily Combivent as needed only, we have discussed indications for use He is not have frequent exacerbations rather frequent pneumonias likely related to aspiration Previous eosinophil counts up to 300 I have ordered a nebulizer for PRN use at home today and we have discussed indications for use. We have discussed signs and symptoms that would require earlier evaluation or change to his plan of care. Assessment & Plan (08/12/2024 5:50 AM CDT): Chronic, present for at least a year, PFT showed a moderate obstructive ventilatory defect which did not improve with bronchodilators but does not preclude their use. Recommend continuing lmevilqdzy-vapauurawadtat-alcuvpgqau 160-9-4.8 inhaler twice daily, and ipratropium-albuterol 20-100 mcg rescue inhaler 4 times daily as needed. Assessment & Plan (04/15/2024 3:27 PM FISCAL SERVICES DIRECTOR): Chronic, present for a number of years, controlled on a combination umeclidinium-vilanterol inhaler and an albuterol rescue inhaler. Lungs are clear and oxygen saturation is normal. Continue same and follow-up in four months. Assessment & Plan (01/18/2024 1:50 PM CDT): Chronic, present for many years, likely due to a longstanding smoking and vaping history. The impression of COPD was confirmed on PFT done about 3 months ago which showed moderate obstructive ventilatory defect that did not improve significantly following bronchodilators. However, this does not preclude the use of bronchodilator therapy. He does have an albuterol inhaler for use as needed and I encouraged him to use it to help him cough up phlegm. Assessment & Plan (10/30/2023 12:41 PM CDT): - cont inhalers/nebs - wean O2 as tolerated Personal history of colonic polyps 04/02/2023 Shortness of breath 03/12/2023 Other chest pain 12/31/2022 Overview (04/02/2024): Cardiac catheterization 01/21/2023: No significant CAD, SHRUTHI Ni. >>OVERVIEW FOR CARDIOVASCULAR STRESS TEST ABNORMAL WRITTEN ON 04/02/2024 11:49 AM BY GEORGIANA EDWARDS MD Cardiac catheterization 01/21/2023: No significant CAD, SHRUTHI Ni. Assessment & Plan (04/02/2024 11:54 AM FISCAL SERVICES DIRECTOR): Chronic, first noted about a year ago, stable. Cardiac catheterization on 01/21/2023 was negative for significant coronary disease. His chest pain is probably due to noncardiac causes including significant esophageal disease and acid reflux. Aspirin is relatively contraindicated due to use of apixaban for paroxysmal atrial fibrillation. We will monitor clinically. Assessment & Plan (04/02/2024 11:49 AM FISCAL SERVICES DIRECTOR): >>ASSESSMENT AND PLAN FOR CARDIOVASCULAR STRESS TEST ABNORMAL WRITTEN ON 01/11/2023 5:00 PM BY GEORGIANA EDWARDS MD Cardiology apparently plans a cardiac catheterization to evaluate for possible causes of syncope. He had a stress test with nuclear imaging that showed a fixed diaphragmatic defect, but no areas of reversible defects. He will keep his follow ups with Cardiology. Paroxysmal atrial fibrillation 11/06/2022 Overview (01/15/2024): MCT 12/04/2022: Rare PACs and rare PVCs. There was 1 auto triggered event and this was noted to be in rapid atrial fib at 140 beats per minute. Assessment & Plan (08/12/2024 5:52 AM CDT): Chronic, present for a year or more, recommend continuing apixaban 5 mg twice daily, and diltiazem XR 120 mg daily. Recommend keeping follow-up with cardiology. Assessment & Plan (04/20/2024 9:16 AM FISCAL SERVICES DIRECTOR): Chronic, controlled on diltiazem and apixaban. Heart rate is somewhat elevated but regular. He reports that his pulse rate is somewhat unstable and accelerates for no good reason. He denies chest pain or pressure at this time, although he has had noncardiac chest pain in the past, likely related to esophageal disease. He will keep his follow ups with Cardiology, currently seeing Francesco Kam, nurse practitioner. Next appointment is in May. Assessment & Plan (01/18/2024 1:53 PM CDT): Chronic, noted a little over one year ago. He had a short run of atrial fibrillation on a mobile cardiac telemetry. The condition is controlled on amiodarone and apixaban. Cardiac exam today is normal. Continue same, and keep followups with cardiology. Assessment & Plan (01/15/2024 5:15 AM CDT): >>ASSESSMENT AND PLAN FOR ATRIAL FLUTTER (CMS/HCC) ([facility]) WRITTEN ON 01/13/2023 3:19 PM BY GEORGIANA EDWARDS MD A recent event monitor showed several episodes of atrial flutter with rapid ventricular response. Anticoagulation was planned, but not initiated yet due to his multiple recent acute illnesses and hospitalizations with various interventions. He also had a recent EGD with RFA ablation of Barretts esophagitis. He is still having some painful swallowing but reports no blood in the stool. We reached out to Cardiology about getting him started on Eliquis now, but have not heard back yet. We discussed all of this with the patient including the rationale for anticoagulation to reduce the risk of stroke. We will most likely get him started soon on the medication. Assessment & Plan (01/15/2024 5:15 AM CDT): >>ASSESSMENT AND PLAN FOR ATRIAL FLUTTER (CMS/HCC) ([facility]) WRITTEN ON 04/17/2023 3:06 PM BY GEORGIANA EDWARDS MD He had some atrial fibrillation/flutter when he was ill with pneumonia. He was wearing an event monitor at the time. Eliquis was prescribed but he never started taking it. We reached out to Cardiology but did not get definitive guidance here. We will discuss with them to see if repeating aid 30 day event monitor would be appropriate as opposed to maintaining the patient on anticoagulation. Assessment & Plan (01/15/2024 5:15 AM CDT): >>ASSESSMENT AND PLAN FOR ATRIAL FLUTTER (CMS/HCC) (HCC) WRITTEN ON 07/17/2023 3:24 PM BY GEORGIANA EDWARDS MD Heart rhythm is currently regular. He says his heart rate is well controlled on diltiazem. He is also still taking Eliquis. We will see him back in six months. Assessment & Plan (10/28/2023 2:45 PM CDT): - cont IV amio while NPO - monitor lytes and replete as needed - restart eliquis when able Pneumonia of right middle lobe due to infectious organism 10/02/2022 Overview (04/13/2023): >>OVERVIEW FOR PNEUMONIA OF LEFT LOWER LOBE DUE TO INFECTIOUS ORGANISM WRITTEN ON 04/13/2023 7:19 PM BY GEORGIANA EDWARDS MD Multiple lobes affected, see hospital records. >>OVERVIEW FOR PNEUMONIA OF BOTH LOWER LOBES DUE TO INFECTIOUS ORGANISM WRITTEN ON 10/02/2022 10:00 AM BY GEORGIANA EDWARDS MD Follow up from [facility], hospitalized in [place], treated for PCP and GNR. Assessment & Plan (06/10/2024 8:40 PM FISCAL SERVICES DIRECTOR): Acute, PNA symptoms resolved s/p hospital treatment but now c/o nasal complaints and ear pain for 2 weeks. No acute findings on exam, lungs clear, sating 95% on RA. Was supposed to have 6 week repeat CXR next week but will do it today given current symptoms. Likely viral/allergic in nature, You may take a cough suppressant to calm your cough (Robitussin, delsym, or nyquil). If your cough is productive or you have tight chest congestion with thick mucus- you can use a cough expectorant like Mucinex. Benadryl/Zyrtec/alyx can be used to dry up a runny nose or post nasal drip. Sudafed can help with nasal congestion (no more than 5 days due to rebound congestion). Flonase or Nasacort will also help with sinus pressure and nasal drip both. Tylenol/Ibuprofen as needed for pain. Increase fluids (water) Cool mist humidifier at night Use sinus rinses to help flush bacteria and help with congestion. Encouraged honey, marshmallows, gelatin, or chloraseptic to help coat throat. Call with any worsening or persistent symptoms. Assessment & Plan (05/31/2024 4:45 PM FISCAL SERVICES DIRECTOR): Acute, see recent hospitalization above for right middle lobe pneumonia. Symptoms have improved since discharge but are complicated by chronic COPD.-See plan below. Repeat chest x-ray in 4 weeks. Assessment & Plan (07/29/2023 3:53 AM CDT): He had several hospitalizations in quick succession for a pneumonia of uncertain cause. We decided to leave him on trimethoprim sulfa for now and so far he is doing well with no recurrence of previous symptoms. Assessment & Plan (04/17/2023 3:09 PM FISCAL SERVICES DIRECTOR): He had multiple recent hospitalization for fairly severe pneumonia, mostly in the left lung. The exact etiology was never identified. At his last discharge, he was placed on trimethoprim sulfa and seems to be doing well. He will follow-up with Dr. Pierson to see if a follow-up bronchoscopy or CT scan is appropriate. Assessment & Plan (04/13/2023 7:19 PM FISCAL SERVICES DIRECTOR): >>ASSESSMENT AND PLAN FOR PNEUMONIA OF BOTH LOWER LOBES DUE TO INFECTIOUS ORGANISM WRITTEN ON 10/22/2022 8:26 AM BY GEORGIANA EDWARDS MD He went for a cruise last month, stopping in [place], but was otherwise on the ship the entire time. He became ill when they arrived in [place] and was hospitalized for several days with pulmonary infiltrates thought to be due to Pneumocystis infection. However, CD4 counts have been in a normal range for quite a while and he should not be at risk for pneumocystis. After getting back from [place], respiratory symptoms relapsed and he was hospitalized at [facility]. Diagnostic workup included a positive Fungitell test suggesting the possibility of a fungal infection such as Coccidioides. However the source of this infection remains unclear. Other fungal infections are possible. He became ill before he arrived in [place]. He does seem to be improved on fluconazole. He completes cefdinir today. He is no longer taking any medication for PCP. He denies side effects from treatment of the pneumonia. We will see him back as scheduled in December or sooner if needed. Assessment & Plan (04/13/2023 7:19 PM FISCAL SERVICES DIRECTOR): >>ASSESSMENT AND PLAN FOR PNEUMONIA OF BOTH LOWER LOBES DUE TO INFECTIOUS ORGANISM WRITTEN ON 10/25/2022 2:49 PM BY GEORGIANA EDWARDS MD He was in the hospital several times recently and treated for multiple possible etiologies of pneumonia including Pneumocystis, community-acquired, Gram- negative, and fungal. His most recent chest x-ray from last week did show significant improvement. Follow-up imaging of the chest will be needed. Wills's esophagus without dysplasia 02/28/2022 Overview (04/14/2022): See EGD and path Bisi alvarez. Assessment & Plan (04/18/2022 3:35 PM FISCAL SERVICES DIRECTOR): His most recent EGD about two months ago was still positive for Wills's, negative for dysplasia. A follow-up EGD is planned in May. Hospital discharge follow-up 01/02/2022 Overview (08/12/2024): Following pneumonia and sepsis, saw CHRISTIE Gomez. Additional follow-up with CHRISTIE El in May 2024 and CHRISTIE Cordoba in July 2024 following hospitalizations for pneumonia. Assessment & Plan (11/25/2024 2:55 PM CDT): See [facility] HPI/AP. Assessment & Plan (05/31/2024 4:44 PM FISCAL SERVICES DIRECTOR): See hospital details above, testing and labs reviewed with patient in office today. Med reconciliation completed. Pneumonia symptoms improved but patient wishes to discuss different maintenance inhaler as he feels his Anoro is not working. No acute findings on exam today, lungs clear satting 92% on room air. We will switch to Breztri as directed, continue albuterol PRN. Educated he must rinse his mouth afterwards with this inhaler. We will recheck chest x-ray in 4 weeks to ensure resolution of pneumonia. Assessment & Plan (01/02/2022 3:49 PM CDT): Patient presents for hospital discharge follow up. Details of stay were reviewed and medication list updated. Patient will f/u in 8 weeks or sooner if needed. Dysphagia 01/02/2022 Assessment & Plan (01/02/2022 3:51 PM CDT): Patient is reporting that for several months he feels as though he has trouble swallowing at times. He has a known history of Wills's and remains on PPI. He had previously been referred back to his GI Dr. Shukla, but had yet to schedule visit. We will go ahead and refer once again. Have encouraged him to sit upright for all meals, chew food well and keep diet soft. Restless leg syndrome 11/10/2020 Overview (11/16/2022): Diagnosed clinically in pain management, placed on Requip with improvement. Primary osteoarthritis of right knee 06/03/2020 Hyperlipidemia associated with type 2 diabetes alda yoon 09/04/2019 Assessment & Plan (02/28/2025 3:27 PM CDT): Chronic, present for 5-6 or more years, managed with pravastatin and omega-3 fatty acids Lab Results Component Value Date CHOL 162 04/08/2024 CHOL 172 01/07/2024 CHOL 170 12/09/2023 Lab Results Component Value Date HDL 83 04/08/2024 HDL 83 01/07/2024 HDL 80 12/09/2023 Lab Results Component Value Date LDLCALC 61 04/08/2024 LDL 64 01/07/2024 LDL 68 12/09/2023 LDL 71 01/09/2023 Lab Results Component Value Date TRIG 99 04/08/2024 TRIG 167 (H) 01/07/2024 TRIG 135 12/09/2023 Lab Results Component Value Date ALT 20 02/19/2025 AST 22 02/19/2025 ALKPHOS 85 02/19/2025 BILITOT 0.2 02/19/2025 Orders: Lipid panel; Future Assessment & Plan (01/15/2024 6:11 PM CDT): Chronic, present for many years, controlled on pravastatin 40 mg nightly. Continue same. Lab Results Component Value Date CHOL 172 01/07/2024 CHOL 170 12/09/2023 CHOL 159 01/09/2023 Lab Results Component Value Date HDL 83 01/07/2024 HDL 80 12/09/2023 HDL 60 01/09/2023 Lab Results Component Value Date LDL 64 01/07/2024 LDL 68 12/09/2023 LDL 71 01/09/2023 Lab Results Component Value Date TRIG 167 (H) 01/07/2024 TRIG 135 12/09/2023 TRIG 186 (H) 10/22/2023 Lab Results Component Value Date ALT 16 01/07/2024 AST 15 01/07/2024 ALKPHOS 103 01/07/2024 BILITOT 0.3 01/07/2024 Assessment & Plan (07/17/2023 3:29 PM FISCAL SERVICES DIRECTOR): He continues on pravastatin. We will monitor lipids at least annually. Assessment & Plan (04/17/2023 3:07 PM FISCAL SERVICES DIRECTOR): He is taking generic pravastatin, tolerating well. Continue same. Assessment & Plan (08/15/2022 3:42 PM CDT): He takes Vascepa and Pravachol. Continue same. There is a trace elevation of ALT which could be from fatty liver change. I doubt it is due to his cholesterol medicine. We will monitor lipids annually. Lab Results Component Value Date CHOL 191 12/04/2021 CHOL 151 09/05/2020 CHOL 152 09/04/2019 Lab Results Component Value Date HDL 55 12/04/2021 HDL 44 09/05/2020 HDL 46 09/04/2019 Lab Results Component Value Date LDL 87 12/04/2021 LDL 75 09/05/2020 LDL 64 09/04/2019 Lab Results Component Value Date TRIG 364 (H) 12/04/2021 TRIG 233 (H) 09/05/2020 TRIG 352 (H) 09/04/2019 Lab Results Component Value Date ALT 49 (H) 08/10/2022 AST 25 08/10/2022 ALKPHOS 83 08/10/2022 BILITOT 0.4 08/10/2022 Assessment & Plan (04/18/2022 3:39 PM FISCAL SERVICES DIRECTOR): He is on pravastatin, tolerating well. Continue same. Assessment & Plan (12/13/2021 2:12 PM CDT): He is on generic Pravachol, tolerating well. Lipids look reasonably favorable. Lab Results Component Value Date CHOL 191 12/04/2021 CHOL 151 09/05/2020 CHOL 152 09/04/2019 Lab Results Component Value Date HDL 55 12/04/2021 HDL 44 09/05/2020 HDL 46 09/04/2019 Lab Results Component Value Date LDL 87 12/04/2021 LDL 75 09/05/2020 LDL 64 09/04/2019 Lab Results Component Value Date TRIG 364 (H) 12/04/2021 TRIG 233 (H) 09/05/2020 TRIG 352 (H) 09/04/2019 Lab Results Component Value Date ALT 41 12/04/2021 AST 24 12/04/2021 ALKPHOS 84 12/04/2021 BILITOT 0.3 12/04/2021 Assessment & Plan (08/03/2021 3:34 PM CDT): He is on pravastatin, tolerating well. Lipids from last year were pretty favorable. His insurance wants him to switch from Lovaza to Vascepa, so we sent in a prescription. Assessment & Plan (03/29/2021 4:13 PM FISCAL SERVICES DIRECTOR): He takes generic Pravachol 40 mg daily. He seems to be tolerating it well. He was on Vascepa, but it is not covered by his insurance so he plans to go back to Lovaza. We sent in a prescription. Assessment & Plan (10/12/2020 2:48 PM CDT): He is on generic Pravachol, tolerating well. Continue same. Keep followups with his hospital social worker, Dr. Kirby. Assessment & Plan (06/01/2020 2:16 PM FISCAL SERVICES DIRECTOR): He is on pravastatin, tolerating well. We will check lipids before his next visit in about four months. Assessment & Plan (01/27/2020 1:40 PM CDT): He continues on pravastatin, tolerating well. We will check lipids periodically. Assessment & Plan (05/19/2019 12:48 PM FISCAL SERVICES DIRECTOR): He is tolerating Pravachol well which seems to be keeping his cholesterol and LDL down. He will be due for a follow-up lipid panel before his next visit in about four months. Assessment & Plan (01/13/2019 11:51 AM CDT): He is on Pravachol, tolerating well. Recent cholesterol values show good control of total and LDL cholesterol. Triglycerides are a little bit high at 295. Continue to monitor periodically. Assessment & Plan (09/30/2018 12:39 PM CDT): Total and HDL cholesterol are in a reasonable range. Triglycerides are improved, probably from improved diet, less alcohol. He is taking pravastatin and omega-3 fatty acids. Continue same. Assessment & Plan (06/17/2018 12:25 PM FISCAL SERVICES DIRECTOR): He is on Pravachol, tolerating well (mild elevation of liver enzymes could possibly be partly due to Pravachol). We continue to monitor lipids periodically which seem to be under reasonable control. Assessment & Plan (12/31/2017 1:46 PM CDT): He is on Pravachol, tolerating well except for a possible association with mild elevation of liver enzymes. Consider alternative therapy as needed. Assessment & Plan (09/07/2017 1:26 PM CDT): He is on Pravachol. Liver enzymes this time are mildly elevated. They do seem to fluctuate somewhat in could be a mild side effect from the Pravachol or one of his other numerous medications. He also is somewhat evasive about how much alcohol he is drinking. Alcohol ingestion has been a problem in the past. I asked him to abstain from all alcohol over the next month or so. We will check another set of liver enzymes to make sure there are no trends. Depending on the findings, we may need to change or modify some of his medications, and additional workup may be needed. Assessment & Plan (04/16/2017 12:24 PM FISCAL SERVICES DIRECTOR): Follow-up labs including lipid panel are due, but he did not have them drawn because of a problem with the insurance coverage. We are getting that straightened out and hopefully he will have this taking care of soon. In the meantime continue current therapy. 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 Assessment & Plan (05/31/2024 4:47 PM FISCAL SERVICES DIRECTOR): Chronic, at goal. BP stable in office today on current therapy. No acute findings on exam. Recent BMP unremarkable. Echo from 02/2023 showed EF of 60-65% with mild pulmonary hypertension. Continue diltiazem, Jardiance, Eliquis as prescribed. low salt diet. Assessment & Plan (01/15/2024 6:13 PM CDT): Chronic, present for over five years, controlled on minimal medication at this time, primarily tamsulosin 0.4 mg twice daily which he takes mostly for his prostate. Continue same. Lab Results Component Value Date GLUCOSE 102 01/07/2024 CALCIUM 9.5 01/07/2024 SODIUM 140 01/07/2024 POTASSIUM 4.0 01/07/2024 CO2 29 01/07/2024 CHLORIDE 102 01/07/2024 BUNSER 9 01/07/2024 CREATININE 1.14 01/07/2024 Assessment & Plan (10/30/2023 12:41 PM CDT): - monitor - home meds as appropriate Assessment & Plan (07/17/2023 3:30 PM FISCAL SERVICES DIRECTOR): Blood pressure is in a good range, perhaps even on the low side, since starting diltiazem for atrial flutter. We are also increasing his Flomax due to prostate symptoms and we advised him to carefully monitor blood pressure at home. Assessment & Plan (04/17/2023 3:08 PM FISCAL SERVICES DIRECTOR): Blood pressure is well controlled. He takes tamsulosin, mostly for his prostate but this is probably keeping his blood pressure down. Assessment & Plan (01/13/2023 3:21 PM CDT): Blood pressure is in a good range on current therapy. Continue same. Follow-up here in three months. Lab Results Component Value Date GLUCOSE 109 (H) 01/09/2023 CALCIUM 9.3 01/09/2023 SODIUM 140 01/09/2023 POTASSIUM 3.8 01/09/2023 CO2 31 01/09/2023 CHLORIDE 103 01/09/2023 BUNSER 9 01/09/2023 CREATININE 1.08 01/09/2023 Assessment & Plan (11/16/2022 3:40 PM CDT): Blood pressure medicine at the hospital was change to diltiazem 180 mg daily. He notes feeling dizzy or lightheaded after taking the medication. He did not take it today because he was driving to the office, and he did not feel dizzy today. I believe the goal of therapy was too get his chronic tachycardia down a little bit. The patient says blood pressure readings at home have been in a good range. We will lower the dose of diltiazem from 180 mg daily to 120 mg daily to see if this eliminates the lightheaded feeling. Assessment & Plan (10/11/2022 3:08 PM CDT): He needed a refill of losartan which we sent in. Assessment & Plan (08/15/2022 3:42 PM CDT): Blood pressure is in a good range on current therapy. He denies chest pain or pressure. Continue same. Assessment & Plan (04/18/2022 3:40 PM FISCAL SERVICES DIRECTOR): Blood pressure is in a good range on current therapy. Pulse rate is mildly elevated which is common for him. Continue same. Assessment & Plan (12/13/2021 2:13 PM CDT): Blood pressure is in a good range on current therapy. Labs are stable. Continue same, and follow-up in four months. Lab Results Component Value Date GLUCOSE 115 (H) 12/04/2021 CALCIUM 9.8 12/04/2021 SODIUM 142 12/04/2021 POTASSIUM 3.7 12/04/2021 CO2 26 12/04/2021 CHLORIDE 101 12/04/2021 BUNSER 6 (L) 12/04/2021 CREATININE 1.06 12/04/2021 Assessment & Plan (08/19/2021 2:02 PM CDT): His blood pressure is running low and pulse rate is a little high. He tends to have a mild chronic tachycardia. He does feel a little lightheaded from time to time. We will have him stop the amlodipine. I would like him to stay on the losartan at a low-dose to protect his kidneys from diabetes. Follow-up in four months, or sooner if pulse rate does not come down into a more normal range. He will start checking at home. Assessment & Plan (05/03/2021 3:46 PM FISCAL SERVICES DIRECTOR): Blood pressure is in a low normal range and he has significant orthostatic changes which might explain his syncope. We are adjusting blood pressure medications as discussed elsewhere. Return in one week for a blood pressure check. Assessment & Plan (03/29/2021 4:12 PM FISCAL SERVICES DIRECTOR): Blood pressure is in a good range on current therapy. He denies having chest pain or pressure. Continue same. Assessment & Plan (10/12/2020 2:47 PM CDT): Blood pressure is on the low side of normal. He denies feeling dizzy or lightheaded. We will lower the losartan dose slightly. Assessment & Plan (06/01/2020 2:18 PM FISCAL SERVICES DIRECTOR): Blood pressure is in a good range on current therapy. Continue same. He also follows up with Cardiology periodically. Assessment & Plan (01/27/2020 1:38 PM CDT): Blood pressure is in a low normal range. He denies feeling dizzy or lightheaded. Labs are stable. Continue current therapy. Assessment & Plan (09/15/2019 12:44 PM CDT): Blood pressure is in a good range on current therapy. He denies having any chest pain or other new cardiovascular symptoms of concern. He does see Dr. Kirby periodically. Assessment & Plan (05/19/2019 12:41 PM FISCAL SERVICES DIRECTOR): Diastolic blood pressure is borderline today. He gets similar readings at home before he takes his blood pressure medication. He has no chest pain, and labs are stable. In the past, he has been generally pretty well controlled. We will check again in four months, and if there are any trends, adjust his medications as needed. Assessment & Plan (01/13/2019 11:49 AM CDT): Blood pressure is in a good range on current therapy. He denies having chest pain or other worrisome symptoms. Labs are stable. Continue current therapy and follow up in four months. Lab Results Component Value Date GLUCOSE 141 (H) 01/05/2019 CALCIUM 10.2 01/05/2019 SODIUM 141 01/05/2019 POTASSIUM 4.2 01/05/2019 CO2 29 01/05/2019 CHLORIDE 102 01/05/2019 BUNSER 10 01/05/2019 CREATININE 0.99 01/05/2019 \ Assessment & Plan (09/30/2018 12:29 PM CDT): Blood pressure is in a good range on current therapy. He denies chest pain or other new symptoms of concern. Continue same. Assessment & Plan (06/17/2018 12:23 PM FISCAL SERVICES DIRECTOR): Blood pressure is in a very good range on current therapy. He denies having any chest pain. He also sees Dr. Kirby for cardiology issues. Assessment & Plan (12/31/2017 1:41 PM CDT): Blood pressure is in a good range. He is tolerating his medications. Recent labs are stable. Continue current therapy and follow up in four months. Assessment & Plan (08/27/2017 12:21 PM CDT): Blood pressure is in a good range. He is tolerating his medications. Continue same and follow-up in four months. Assessment & Plan (04/16/2017 12:26 PM FISCAL SERVICES DIRECTOR): Blood pressure is in a good range. He is now following up with Dr. Kirby since Dr. Cervantes retired. He has no complaints of chest pain. Continue to monitor. Type 2 diabetes mellitus wit hout complication, without long-term current use of insulin 09/04/2019 Overview (01/25/2024): Mild microalbuminuria as of 01/23/2024. 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 No recent falls reported. Blood sugar levels elevated, recent reading of 150 mg/dL. - Monitor blood sugar levels - Discuss balance issues related to neuropathy Orders: Hemoglobin A1c; Future Assessment & Plan (11/24/2024 7:37 PM CDT): See [facility] HPI/AP. Assessment & Plan (08/12/2024 5:54 AM CDT): Chronic, present for the past five years or so, recommend continuing metformin 500 mg twice daily, and empagliflozin 10 mg daily. We reminded him that his diabetic eye exam is due. Assessment & Plan (05/31/2024 4:41 PM FISCAL SERVICES DIRECTOR): Chronic, at goal of less than 7%. Last A1c from December was 6.4. No acute symptoms or findings on exam. Refilled metformin as prescribed. Continue heart healthy diet and exercise. Keep repeat diabetic labs before follow in August. Assessment & Plan (04/20/2024 9:20 AM FISCAL SERVICES DIRECTOR): Chronic, diagnosed about four years ago, controlled with diet and metformin 500 mg twice daily and empagliflozin 10 mg daily. We reminded him that his diabetic eye exam is due. Follow-up in 3-4 months. Lab Results Component Value Date HGBA1C 6.1 (H) 01/07/2024 HGBA1C 7.0 (H) 07/17/2023 HGBA1C 6.9 (H) 01/09/2023 Lab Results Component Value Date MICROALBUR 1.0 01/09/2023 LDLCALC 61 04/08/2024 CREATININE 1.05 04/08/2024 Assessment & Plan (01/15/2024 6:16 PM CDT): Chronic, controlled on metformin 500 mg twice daily and empagliflozin 10 mg daily. We encouraged him to get his diabetic eye exam done which is overdue. Follow-up in three months. Lab Results Component Value Date HGBA1C 6.1 (H) 01/07/2024 Assessment & Plan (10/28/2023 2:51 PM CDT): - monitor - accuchecks have all been normal - will D/C Assessment & Plan (07/17/2023 3:34 PM FISCAL SERVICES DIRECTOR): Blood sugars are running higher than he is used to. Fasting blood sugar this morning was around 170 mg%. We ordered a hemoglobin A1c, and if it is significantly higher than before, we may need to adjust medications. Currently he is on Jardiance 10 mg daily and metformin 500 mg twice daily. He is due for his diabetic eye exam and plans to get that scheduled within a month. Assessment & Plan (04/17/2023 3:10 PM FISCAL SERVICES DIRECTOR): Blood sugars at home are generally around 130 mg/dL on Jardiance and metformin. Continue same. His eye exam is due and he will get that taken care of. Lab Results Component Value Date HGBA1C 6.9 (H) 01/09/2023 HGBA1C 6.9 (H) 07/28/2021 HGBA1C 7.7 (H) 09/05/2020 Lab Results Component Value Date MICROALBUR 1.0 01/09/2023 CREATININE 1.11 04/12/2023 Assessment & Plan (01/11/2023 5:07 PM CDT): Blood sugars at home range around 130 mg/dL. HbA1c is in a good range. He is controlling his diabetes with diet and metformin. He also takes Jardiance for his heart and for diabetes. Lab Results Component Value Date HGBA1C 6.9 (H) 01/09/2023 HGBA1C 6.9 (H) 07/28/2021 HGBA1C 7.7 (H) 09/05/2020 Lab Results Component Value Date MICROALBUR 1.0 01/09/2023 CREATININE 1.08 01/09/2023 Assessment & Plan (11/16/2022 3:41 PM CDT): He is still on a prednisone taper which terminates tomorrow. Despite being on steroids, he says blood sugars indicate good control of his diabetes with diet and metformin. Continue same. Assessment & Plan (08/15/2022 3:46 PM CDT): Blood sugar in the morning runs between 130-150 mg/dL. He takes metformin 500 mg twice a day which seems to be keeping things under reasonably good control. He is due for his diabetic eye exam in September. Lab Results Component Value Date HGBA1C 6.9 (H) 07/28/2021 HGBA1C 7.7 (H) 09/05/2020 HGBA1C 7.1 (H) 01/19/2020 Lab Results Component Value Date MICROALBUR 1.1 09/05/2020 CREATININE 1.00 08/10/2022 Assessment & Plan (05/05/2022 10:34 PM FISCAL SERVICES DIRECTOR): He is on Jardiance and metformin. He had his eye exam at [facility]. We will get that report. Follow-up labs for diabetes are pending. Lab Results Component Value Date HGBA1C 6.9 (H) 07/28/2021 HGBA1C 7.7 (H) 09/05/2020 HGBA1C 7.1 (H) 01/19/2020 Lab Results Component Value Date MICROALBUR 1.1 09/05/2020 CREATININE 1.03 03/21/2022 Assessment & Plan (12/23/2021 8:50 AM CDT): Blood sugars are fluctuating somewhat, as low as 99 mg/dL and as high as 179 mg/dL. In general they are less than 140 mg/dL. HbA1c indicates reasonably good control on diet, metformin and Jardiance. Lab Results Component Value Date HGBA1C 6.9 (H) 07/28/2021 HGBA1C 7.7 (H) 09/05/2020 HGBA1C 7.1 (H) 01/19/2020 Lab Results Component Value Date MICROALBUR 1.1 09/05/2020 CREATININE 1.06 12/04/2021 Assessment & Plan (08/03/2021 3:30 PM CDT): He is on a low-dose of metformin and diet to control his diabetes. HbA1c is in a good range. Lab Results Component Value Date HGBA1C 6.9 (H) 07/28/2021 Assessment & Plan (03/29/2021 4:12 PM FISCAL SERVICES DIRECTOR): He is on Jardiance and metformin. Morning blood sugars generally range from 100 g per dL to 150 mg/dL. He is due for his diabetic eye exam and plans to get it early next year. We will see him back in four months. Assessment & Plan (12/11/2020 3:36 PM CDT): Fasting blood sugars for the past week are 169, 173, 154, 172, 150, 191, 238 in reverse chronological order. He is sort of eating better. He says they never called from the hospital to schedule him with a inclusion paraeducator. He is on metformin 500 mg twice a day, did not tolerate 850 mg twice a day. We discussed optoins for additional therapy. We will start an SGLT inhibitor, ROMD. Follow up in about 6 weeks with blood sugar record. Assessment & Plan (10/12/2020 2:46 PM CDT): Hemoglobin A1c is a little higher than last measurement. He admits he is not always compliant with his diet. Blood sugars at home have average around 170 mg %. We encouraged better attention to his diet. We will increase the metformin from 500 mg to 850 mg twice a day. Depending on the results, he may need a second agent. We discussed the options including oral hypoglycemic agents and others. He will get his diabetic eye exam done between now and his next visit. He has been procrastinating on this. Lab Results Component Value Date HGBA1C 7.7 (H) 09/05/2020 HGBA1C 7.1 (H) 01/19/2020 HGBA1C 6.8 (H) 09/04/2019 Lab Results Component Value Date MICROALBUR 1.1 09/05/2020 CREATININE 1.07 09/05/2020 Assessment & Plan (06/05/2020 1:11 PM FISCAL SERVICES DIRECTOR): Fasting blood sugar was 256. He does not have a glucometer so we do not know what he is running at home. He does feel thirsty and has a dry mouth. We will get him started on metformin. We will get him a glucometer. We will have him write down the readings and bring them to his next visit. We will check in by phone to adjust the dose of medication as needed. He will get his diabetic eye exam done. Assessment & Plan (01/27/2020 1:42 PM CDT): He has transitioned from borderline diabetes to jose roberto diabetes with two consecutive hemoglobin A1c levels at or above 6.7%. We discussed this today. We recommended a lower carbohydrate intake and avoidance of alcohol. We will get him set up to see a diabetic nurse educator. We will check a follow-up hemoglobin A1c at his next visit and decide if he needs treatment with medications in addition to diet. 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 Shukla Mathews. Assessment & Plan (03/29/2021 4:17 PM FISCAL SERVICES DIRECTOR): He has a history of severe esophagitis and Wills's metaplasia. His last EGD was about two years ago. For the past year he has had intermittent dysphagia to solids. He thinks it might be getting progressively worse, so he should have a follow-up EGD. We will get that scheduled with Dr. Shukla who saw him last time. He is also overdue for a colonoscopy, so hopefully both procedures could be done at the same time. Assessment & Plan (06/01/2020 2:19 PM FISCAL SERVICES DIRECTOR): He will keep his follow ups with Dr. Shukla. He has occasional mild difficulty swallowing, but nothing severe or progressive. He is also overdue for a colonoscopy and will discuss this with Dr. Shukla. Assessment & Plan (01/30/2020 11:40 AM CDT): He sees Dr. Shukla at [place] for regular follow ups. Last EGD was April 2019 with low-grade dysplasia. He continues on a PPI. Functional diarrhea 11/10/2018 Assessment & Plan (06/10/2024 8:44 PM FISCAL SERVICES DIRECTOR): Acute worse in the last 4 weeks. See HPI for details. No acute findings on exam, vitals stable. Will check CMP, magnesium, CBC toady and stool for C.diff and culture. Continue bland diet, use immodium as needed. Will call for lomotil if he doesn't have any at home. Assessment & Plan (01/15/2024 6:04 PM CDT): Chronic, present intermittently for many years. It is generally pretty well controlled with diphenoxylate-atropine. We sent in a refill today. Chronic rhinitis 11/10/2018 Assessment & Plan (02/28/2025 3:27 PM CDT): Chronic, present for 6-7 or more years, managed with azelastine nasal spray - Refills sent. Orders: azelastine (Astepro Allergy) 205.5 mcg (0.15 %) spray,non-aerosol; Administer 0.15-0.3 mL (1-2 sprays total) into each nostril 2 (two) times a day Assessment & Plan (11/25/2024 2:53 PM CDT): See [facility] HPI/AP. Assessment & Plan (06/10/2024 8:42 PM FISCAL SERVICES DIRECTOR): Acute, URI symptoms for 2 weeks. S/p treatment for sepsis/PNA 5 weeks ago. No acute findings on exam, lungs clear, sating 95% on RA. Was supposed to have 6 week repeat CXR next week but will do it today given current symptoms. Likely viral/allergic in nature, You may take a cough suppressant to calm your cough (Robitussin, delsym, or nyquil). If your cough is productive or you have tight chest congestion with thick mucus- you can use a cough expectorant like Mucinex. Benadryl/Zyrtec/alyx can be used to dry up a runny nose or post nasal drip. Sudafed can help with nasal congestion (no more than 5 days due to rebound congestion). Flonase or Nasacort will also help with sinus pressure and nasal drip both. Tylenol/Ibuprofen as needed for pain. Increase fluids (water) Cool mist humidifier at night Use sinus rinses to help flush bacteria and help with congestion. Encouraged honey, marshmallows, gelatin, or chloraseptic to help coat throat. Call with any worsening or persistent symptoms. Assessment & Plan (04/15/2024 3:26 PM FISCAL SERVICES DIRECTOR): Chronic, present for more than five years, controlled on fluticasone nasal spray. Continue same. Fatty liver 01/01/2018 Overview (09/06/2019): [facility] at [facility] for elevated LFTs: 1. Fatty infiltration of the liver incidentally noted. 2. No discrete hepatic mass is seen. Basal cell carcinoma 06/20/2017 Cancer Staging:Clinical: Unsigned Overview (01/15/2024): Superficially invasive, margins free of cancer, 06/20/2017, Dr. Jaylen Lau, [facility]. BASAL CELL CARCINOMA, 11/15/2020, left baptism, Sabrina Wesley, ANP, plastic surgery, [facility]. Extends to margins of resection. Surgery, Dr. Solorzano, 05/09/2021: Basal cell carcinoma, completely excised. Assessment & Plan (09/26/2019 10:42 AM CDT): He has had at least one basal cell cancer removed from his face by Dr. Lau at [facility]. There is a small scab over the anterior portion of a left baptism seborrheic keratosis. This is probably due to some minor trauma, possibly from shaving or hair trimming. However, he does plan to see Dr. Lau about this finding. In addition, I pointed out a small erythematous and scaly plaque or patch of skin measuring about 0.5 cm, overlying the left pectoral area. It could be a basal cell or squamous cell cancer as well, and I recommended he get it checked out at the same time. Benign prostatic hyperplasia with nocturia 05/13 Assessment & Plan (07/17/2023 3:27 PM FISCAL SERVICES DIRECTOR): He has a little trouble initiating voiding and does not feel that he completely empties his bladder. He would like to try a higher dose of Flomax so we sent in b.i.d. dosing, risks of medication discussed. Assessment & Plan (01/11/2023 4:59 PM CDT): He denies any urinary symptoms of concern such as dysuria or hematuria. We ordered a follow-up PSA test. He currently declines rectal exam. Assessment & Plan (11/16/2022 3:38 PM CDT): No new urinary symptoms reported. Continue Flomax. Assessment & Plan (08/15/2022 3:31 PM CDT): He denies any new urinary symptoms of concern. He continues on Flomax. Assessment & Plan (04/18/2022 3:36 PM FISCAL SERVICES DIRECTOR): He denies any new urinary symptoms of concern. He takes Flomax. We will monitor clinically. Assessment & Plan (08/19/2021 2:03 PM CDT): He gets up at night 2-3 times to urinate. This is despite being on tamsulosin. We talked about increasing the dose, but I am concerned that is blood pressure is already running a little on the low side. The nocturia does interfere with sleep. He also has poor sleep hygiene including taking naps in the evening. He then watches TV and finally goes to bed at around 2:00 a.m.. He gets up after only 5 or 6 hours of sleep which is interrupted by nocturia. His partner does not say he snores or has interrupted breathing. He is not sleepy during the daytime. We discussed the importance of good sleep hygiene including avoiding naps in the evening. Follow-up in four months to see how he is doing. Assessment & Plan (09/15/2019 12:42 PM CDT): He is doing well on tamsulosin. He denies any urinary symptoms of concern. Prostate exam today is normal. Continue to monitor clinically. Assessment & Plan (05/30/2019 9:47 AM FISCAL SERVICES DIRECTOR): He needed a refill of Flomax which we sent in. It does seem to help reduce his nocturia. Diastolic dysfunction 01/03/2017 Overview (02/01/2017): See echo done in cardiology office, Dr. Kirby. Assessment & Plan (01/02/2022 3:53 PM CDT): Patient has known history of diastolic dysfunction and remains on ARB. He however, was noted to have low BP today, no orthostatic changes, but occasional dizziness. Have recommended we set parameters on losartan and he will call with an update on BP later this week or early next week. Will f/u in 8 weeks or sooner if needed. Other chronic pain 12/25/2016 Overview (11/14/2024): Neck, back, knees, hips. Assessment & Plan (02/28/2025 3:27 PM CDT): Chronic, present for 9-10 or more years, unstable. Chronic pain managed with oxycodone and Xtampza. Recent back pain flare-up managed with cyclobenzaprine. - Use cyclobenzaprine as needed for back pain - Keep followups with pain management Urinary hesitancy 12/11/2016 Overview (05/19/2019): Due to BPH, improved with Flomax. Assessment & Plan (02/28/2025 3:27 PM CDT): Chronic, present for 8-9 or more years, uncontrolled, likely due to benign prostatic hyperplasia with lower urinary tract symptoms, Urinary frequency possibly due to benign prostatic hyperplasia. PSA normal. Symptoms may be due to prostate enlargement or overactive bladder. Discussed finasteride or dutasteride to shrink prostate over months. Considered urology referral and ultrasound evaluation of bladder function. - Monitor urinary symptoms - Consider urology referral if symptoms persist, patient currently declines referral - Discuss potential use of finasteride or dutasteride Assessment & Plan (01/22/2018 4:53 PM CDT): He had not previously mentioned some urinary symptoms that have bothered him for the past year or so. He describes difficulty getting his stream going, some end of urination dribbling, and nocturia times 3. There is no dysuria or hematuria. Prostate exam today shows no significant enlargement, firmness, nodularity or tenderness. Most likely he has some early benign prostatic hyperplasia. We will get him started on some tamsulosin to see if this helps. We will check a PSA with his next set of labs. If symptoms do not improve with treatment, we will send him to a urologist for further evaluation. 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 It affected his right ankle and toe, and started to get into his left big toe. He took colchicine for the acute attack which helped. He would like to increase the dose of allopurinol. He had two attacks of gout over the past year. We sent in appropriate refills. Assessment & Plan (01/27/2020 1:38 PM CDT): He has not had any recent episodes of gout. He needed a refill of allopurinol which we sent in. He also has colchicine for use as needed. Assessment & Plan (12/31/2017 1:36 PM CDT): He is on allopurinol. He has had no gouty attacks recently. Polyp of colon 03/30/2015 Overview (10/25/2018): Colon polyps noted in left colon on incomplete colonoscopy (unable to pass scope beyond sharply angulated colon), Dr. Richards. Patient referred to tertiary care for additional workup. Assessment & Plan (09/07/2017 1:27 PM CDT): Three years ago, he had a colonoscopy which was incomplete due to sharp angulation and fixation of the descending colon. Partial visualization was noted for several sessile polyps. The patient was referred to the GI service at [facility] by Dr. Richards, but apparently never went. I again encouraged him to make the appropriate appointments so that we do not miss something potentially important. He can discuss this further with Dr. Richards at the time of his appointment for Wills's esophagus surveillance. If assistance is needed in making the appointment, we can also help. 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 History of past alcohol abuse, no evidence of cirrhosis. 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 Assessment & Plan (06/26/2018 3:38 PM FISCAL SERVICES DIRECTOR): He has had a mild chronic elevation of liver enzymes. Ultrasound showed fatty infiltration of the liver which is the likely cause. However, we had also ordered some additional testing to rule out iron storage or autoimmune hepatitis. He did not get these done yet, so he will have them done at his convenience and also discuss the results with Dr. Richards at his upcoming appointment in one month. Consider liver biopsy as needed. Assessment & Plan (12/31/2017 1:38 PM CDT): We have been monitoring a mild elevation of liver enzymes. He has had intermittent elevations in the past related to alcohol use, but he denies any consistent excess use of alcohol at this time, certainly not every day. He is on pravastatin which could raise his liver enzymes. Other medications may also be suspect including some of his HIV medicines. Fatty liver changes a definite consideration. We are getting a right upper quadrant ultrasound to evaluate for the condition of the liver and for gallstones. We will request some additional testing to be done at his next scheduled lab draw to evaluate for iron storage, autoimmune disease, and other potential causes. Hyperglycemia 12/24/2012 Overview (08/16/2016): Elevated blood sugar Alcohol abuse 08/28/2012 Overview (08/17/2016): Alcohol abuse Assessment & Plan (08/15/2022 3:30 PM CDT): He only drinks alcohol occasionally now and no more than 4-5 beers at a time. There is a mild elevation of ALT which could be due to fatty liver from his diabetes as opposed to alcoholic liver disease. There is no overall trend in liver enzymes. Assessment & Plan (01/27/2020 1:37 PM CDT): He does not drink every day, but is not completely abstinent either. He is somewhat evasive about his drinking habits. Now that he has developed diabetes, avoiding alcohol is even more important. We discussed this today. Assessment & Plan (09/30/2018 12:24 PM CDT): He has cut back but not quit. AST is back to a normal range and ALT is improved. We discussed labs today. He also follows up with Dr. Richards. Persistent mood disorder 08/11/2008 Overview (04/16/2017): Depression with past suicidal attempts, associated with alcohol abuse. Assessment & Plan (02/28/2025 3:27 PM CDT): Chronic, present for 15-20 or more years, stable with decreased alcohol use Depression managed with venlafaxine. - Continue venlafaxine as prescribed Assessment & Plan (08/14/2024 12:56 PM CDT): Chronic, present for 15-20 years, recommend continuing venlafaxine 225 mg daily (75 mg + 150 mg), and keeping follow-up for supportive care. Assessment & Plan (05/31/2024 4:39 PM FISCAL SERVICES DIRECTOR): Chronic, uncontrolled. See HPI for details. No PHQ or SAVANNAH screening was done today. We will increase venlafaxine to 225 mg daily. Refill trazodone 150-200 mg nightly. Keep follow in 3 months as scheduled. Assessment & Plan (04/20/2024 9:18 AM FISCAL SERVICES DIRECTOR): Chronic, present for many years. Depression is pretty well controlled on venlafaxine 150 mg daily, but anxiety he is uncontrolled, likely related to all of his recent medical problems and procedures. He would like to go on Xanax, but he is on opiates for chronic pain so I asked him to discuss benzodiazepine treatment with his final touch up painter, Dr. Xiao, who he sees tomorrow. Assessment & Plan (07/17/2023 3:31 PM FISCAL SERVICES DIRECTOR): His mood seems to be holding pretty well on Effexor 150 mg daily. He also takes trazodone to help him sleep at night. Continue same. Assessment & Plan (08/15/2022 3:44 PM CDT): His mood seems good. He is going with his partner on a seven day [place] cruise in about one month. We discussed appropriate planning and hygiene for a cruise. He is fully vaccinated for COVID. We recommended that he get a hepatitis A vaccine and practice good hand washing. Assessment & Plan (12/13/2021 2:15 PM CDT): He says his mood is good. He takes Effexor and trazodone. Continue same. Assessment & Plan (08/03/2021 3:31 PM CDT): He says his mood is good. He is staying away from alcohol almost completely. Assessment & Plan (10/12/2020 2:47 PM CDT): He says his mood is good on current therapy. Continue same. Assessment & Plan (06/05/2020 1:15 PM FISCAL SERVICES DIRECTOR): He says he is good with his mood. He is on several medications to help keep things in check. We discussed the risks of serotonin syndrome from being on multiple agents that can affect serotonin, but he has tolerated the combination so far. Assessment & Plan (01/27/2020 1:41 PM CDT): Affect is somewhat flat, but generally he seems to be doing okay on venlafaxine. He is also now on Cymbalta for his pain issues which may also be helping his mood. Assessment & Plan (09/15/2019 12:50 PM CDT): He says his mood is good. He denies feeling depressed or anxious. We will have him continue topiramate and venlafaxine. Assessment & Plan (05/19/2019 12:49 PM FISCAL SERVICES DIRECTOR): He seems to be doing well on his current therapy. He denies any relapse of alcohol use. Continue medications and supportive care. Assessment & Plan (01/13/2019 11:52 AM CDT): He seems to be doing pretty well at this time on current therapy. He says his mood is okay. He is a little evasive about alcohol intake, but does not seem to have a major issue here. We will continue to monitor and provide supportive care. Assessment & Plan (09/30/2018 12:40 PM CDT): He seems stable on current doses of trazodone and venlafaxine. Continue same. Assessment & Plan (06/17/2018 12:26 PM FISCAL SERVICES DIRECTOR): He denies any mood issues. He denies any relapse of alcohol problems. He is on venlafaxine. Continue same. Assessment & Plan (01/22/2018 4:52 PM CDT): His mood has been stable for quite a while. He has significantly decreased and almost eliminated alcohol intake. This probably helps a lot. Continue Effexor XR and trazodone, the latter used as a sleep aid. Assessment & Plan (08/27/2017 12:26 PM CDT): He seems to be doing well on current medications. Mood is pretty stable in the office today, somewhat flat with not much variation, but certainly not depressed. There may be some issues with ongoing excess alcohol use. He seemed unwilling to discuss this much. I did ask him to abstain from all alcohol for the next month or so pending follow-up lab testing or. We will see how he is doing at his next appointment. He may need some additional brief interventions. Assessment & Plan (04/16/2017 12:23 PM FISCAL SERVICES DIRECTOR): He seems to be doing fairly well in this regard on current therapy. There been no major new life stressors. We will continue the same. Decreased testosterone level 05/13/2004 Overview (08/16/2016): Low testosterone level Male erectile disorder 05/13/2004 Overview (08/16/2016): Erectile dysfunction Condyloma acuminatum 08/28/2000 Overview (09/30/2018): Condyloma acuminatum in male, genitals only, resolved. Anal HPV negative. Assessment & Plan (09/30/2018 12:29 PM CDT): He has had genital warts in the past, but nothing recently. Swabs of the rectal area have been consistently negative. Continue to monitor. Assessment & Plan (12/31/2017 1:36 PM CDT): Currently there are no active penile lesions. He has no history of anal HPV, but we did swab his anal area again today. Wills's esophagus with high grade dysplasia Overview (01/15/2024): Wills esophagus transitioned from low-grade to high-grade dysplasia as of June 2018. Low grade dysplasia on EGD 04/2019. >>OVERVIEW FOR ESOPHAGEAL CANCER ([facility]/HCC) (FORMERLY [facility]) WRITTEN ON 01/15/2024 5:31 AM BY GEORGIANA EDWARDS MD Status post resection of involved segment (Barretts with dysplasia). Final surgical pathology negative for esophageal cancer. >>OVERVIEW FOR MALIGNANT NEOPLASM OF LOWER THIRD OF ESOPHAGUS ([facility]/HCC) ([facility]) WRITTEN ON 01/15/2024 5:33 AM BY GEORGIANA EDWARDS MD Final pathology negative for cancer. Assessment & Plan (07/29/2024 3:55 PM CDT): Chronic, stable Hx relative to dx: GERD, vocal cord paralysis (unilateral), dysphagia Barium swallow in patient: Penetration and aspiration with multiple consistencies Sleeps with HOB greater than 90 to avoid aspiration Current meds: Protonix Today's Plan: Continue Protonix Continue HOB elevation to avoid aspiration Assessment & Plan (01/18/2024 1:49 PM CDT): Chronic, present for more than 20 years, improved after surgery to resect a segment of his esophagus. The final pathology report was negative for cancer, but did show areas of high-grade dysplasia. In general he is doing pretty well, but still has a hoarse voice from a b ruised recurrent laryngeal nerve. He got one Botox injection into the vocal cord which helped, and is going for another one soon. He will keep his follow ups with surgery and other specialists at [facility]. Assessment & Plan (01/15/2024 5:34 AM CDT): >>ASSESSMENT AND PLAN FOR MALIGNANT NEOPLASM OF LOWER THIRD OF ESOPHAGUS (CMS/HCC) (HCC) WRITTEN ON 10/31/2023 11:25 AM BY GUILLE HEATH, WIRE PRODUCTS INSPECTOR S/P Transhiatal esophagectomy on 10/21. PACU exutbated in resp distress with wheezing on exam and PCO2 to the 80s - extubated 10/25 - transferred to the OU 10/26 - had been on ketamine for pain - Acute pain following-d/c epidural - gave some water for possible swallow study and did not tolerate well - ENT consulted and Left cord out, ENT cord injection 10/29 - FEES with SHIP SUPERINTENDENT, ok for thin/regular liquids - tolerated clear liquids and will adv to Full liquids sugar free today - remove karen pleural chanelle drains : f/u 2 v cxr - remove noah/neck rashmi - loss prevention analyst consult for full liquid diet education - resume home meds: crush tablets and/or change to liquid Assessment & Plan (08/24/2023 4:52 PM CDT): He is scheduled for a partial esophagectomy and gastric pull-up. There was a question of liver cirrhosis which was entered into his PMH in which is a contraindication to esophageal surgery. However, it appears to be an erroneous diagnosis. Several recent CT scans of his lungs included the upper abdomen and the liver was reported as showing fatty change, but was otherwise unremarkable. Recent liver enzymes are normal. We will monitor clinically. Lab Results Component Value Date ALT 28 07/09/2023 AST 18 07/09/2023 ALKPHOS 107 07/09/2023 BILITOT 0.3 07/09/2023 Assessment & Plan (07/29/2023 3:51 AM CDT): He had a follow-up endoscopy in June to resect nodules, but only one of three was successfully resected. It was negative for cancer. Previous biopsies had shown suspected early cancer, so surgery is planned but the exact procedure will be described to him when the procedure is scheduled. Currently he does experience a little trouble with swallowing including pain. He remains on Protonix and Pepcid. Assessment & Plan (01/11/2023 4:58 PM CDT): He had another endoscopy at [facility] with RF ablation of Wills's mucosa about two weeks ago. He continues to have moderate pain with swallowing. Certain foods are worse than others but it is somewhat unpredictable. For example mashed potatoes cause odynophagia but potato chips do not. He he is on sucralfate, Protonix, and Pepcid. Hopefully things will improve soon. Assessment & Plan (10/11/2022 3:13 PM CDT): He needs a referral to the [facility] GI department for a follow-up of his Wills's. Assessment & Plan (08/15/2022 3:30 PM CDT): He had a follow-up endoscopy about a month ago with additional radiofrequency treatment of his Wills's esophagus. Regular endoscopic evaluation is planned. Assessment & Plan (12/23/2021 8:49 AM CDT): A couple of years ago he had Wills's with high-grade dysplasia. This was being monitored closely and a follow-up EGD in April 2019 showed low-grade dysplasia. Lately he has had a little trouble swallowing. Food sometimes will not go down any he has to drink fluid to get it down. He will follow-up with the GI service at [facility] to evaluate the Wills's and his symptoms. Assessment & Plan (08/19/2021 2:04 PM CDT): He has not had regular follow-up for this condition, nor has he scheduled his colonoscopy which is overdue. We have discussed this many times. He says the GI nurse at [facility] called and left a message for him to schedule, but he did not return the call yet. I encouraged him to do so. Assessment & Plan (10/15/2020 3:38 PM CDT): He has not yet rescheduled his EGD for surveillance of Wills's esophagitis. He sees Dr. Shukla for this. I asked him to get scheduled soon, and also discuss the possibility of having a colonoscopy at the same time. He is overdue for colon cancer screening. This was attempted a number of years ago locally, but the colon was narrow and tortuous so the entire colon could not be examined. Hopefully they can accomplish this it tertiary care with a pediatric or other special scope. Assessment & Plan (09/15/2019 12:40 PM CDT): He is being followed closely by Dr. Shukla and Dr. Richards. He is on a PPI and on sucralfate. In general, he does not have trouble with swallowing, but he did have an episode of possible pill dysphagia last night which has resolved. He still gets a fair amount of heartburn, especially at night. Follow ups with Dr. Shukla have been delayed because of COVID-19, but at some point in the near future, an EGD is planned to reassess the situation. Assessment & Plan (05/19/2019 12:39 PM FISCAL SERVICES DIRECTOR): He is following up with Dr. Shukla. He had a radiofrequency ablation recently and a follow-up endoscopy is planned for about a month from now. He continues on high- dose PPI. Assessment & Plan (01/13/2019 11:49 AM CDT): He had a radiofrequency ablation at [facility] in mid February. He still has a little discomfort with swallowing, otherwise seems to be doing well. He has a follow-up with the GI service there within the next month or so. They plan to take another look. In the meantime, continue anti-reflux measures. Assessment & Plan (09/30/2018 12:41 PM CDT): He has been followed for Wills's esophagus for many years. In the past, he has had low-grade dysplasia but the most recent endoscopy showed a focus of high-grade dysplasia. He has been referred to [facility], Dr. Shukla, for further management. Currently he says reflux type symptoms are reasonably well controlled except at night. He has no dysphagia. Continue Protonix, taken twice a day. Assessment & Plan (07/10/2018 10:09 PM FISCAL SERVICES DIRECTOR): Patient had long segment Wills's with persistent low grade dysplasia, and now a focus of high grade dysplasia. Patient will be referred for [facility] for further evaluation, EUS and possible ablation therapy. Assessment & Plan (06/17/2018 12:22 PM FISCAL SERVICES DIRECTOR): He had a follow-up endoscopy recently. He had a long segment of Wills's esophagus with mild dysplasia. He is on a higher dose of proton pump inhibitor and will be following up with Dr. Richards. Assessment & Plan (08/27/2017 12:21 PM CDT): This is followed by Dr. Richards. At his last upper endoscopy, I believe findings were relatively unremarkable. Prior to that he had had mild dysplasia. He is probably due for an upper endoscopy this year. He will make an appointment with Dr. Richards for this. Currently he reports no trouble swallowing. Assessment & Plan (04/16/2017 12:27 PM FISCAL SERVICES DIRECTOR): He is last colonoscopy was towards the end of 2014, and did show a long segment of Wills's with no dysplasia on biopsy. He should follow up with Dr. Richards about this sometime next year. Gastroesophageal reflux disease 08/28/2000 Overview (08/17/2016): GERD (gastroesophageal reflux disease) Assessment & Plan (10/02/2024 11:48 AM CDT): Continue PPI and H2 yasmany Elevate head of bed while sleeping Avoid trigger foods and sit upright after meals No eating 2-3 hours before bed This is likely a contributor to his recurrent pneumonias. Assessment & Plan (04/20/2024 9:13 AM FISCAL SERVICES DIRECTOR): Chronic, present for more than 20 years, currently on dual acid suppression with famotidine and pantoprazole as prescribed by his specialists at [facility]. He had a partial esophagectomy with gastric pull-through to deal with a recently diagnosed esophageal cancer. A recent endoscopy was performed including a pyloric dilation. Abdominal exam is currently benign. He will keep his follow ups with GI. Assessment & Plan (01/15/2024 6:08 PM CDT): Chronic, present for decades, fair control on dual acid suppression therapy. We refilled famotidine today. Assessment & Plan (08/15/2022 3:31 PM CDT): He takes omeprazole. Continue same. Assessment & Plan (12/13/2021 2:12 PM CDT): He is on omeprazole. Sometimes he experiences a little dysphagia to solids, relieved by drinking fluid. He has trouble localizing the exact site of dysphagia. He has been putting off a follow-up EGD for his Wills's, but he should get that done now so we will make the appropriate arrangements. Lab Results Component Value Date WBC 7.0 12/04/2021 HGB 14.4 12/04/2021 HCT 44.3 12/04/2021 MCV 89.3 12/04/2021 LABPLAT 206 12/04/2021 Assessment & Plan (04/15/2021 3:16 PM FISCAL SERVICES DIRECTOR): He was taking Protonix but he could not get refills from the GI office, so he started taking [id number] omeprazole instead. We made the correction in his medication record. Assessment & Plan (07/10/2018 10:07 PM FISCAL SERVICES DIRECTOR): Symptoms controled with Protonix. Assessment & Plan (12/31/2017 1:41 PM CDT): He sees Dr. Richards periodically for follow-up of Wills's esophagus and GE reflux. Symptoms seem to be under good control at this time on current therapy. Continue same. Migraine without aura and wi thout status migrainosus, not intractable 11/11/1999 Overview (03/21/2022): Pretty well controlled with topiramate, but likes to have Imitrex to use as needed. Assessment & Plan (07/17/2023 3:30 PM FISCAL SERVICES DIRECTOR): He is having more headaches than previously. He ran out of sumatriptan so we refilled it, but he does not think his current headaches are really due to migraine. He just had an appointment in pain management but forgot to ask them about his headaches. They provide him with Topamax. The dose might need to be increased. I encouraged him to call them for a follow-up visit or at least get a telephone opinion about his current symptoms. Assessment & Plan (04/05/2022 7:50 AM FISCAL SERVICES DIRECTOR): He has a history of migraine headaches dating back over 20 years. Generally, symptoms are well controlled with topiramate, but he requested a refill of Imitrex, as his current Imitrex supply is over 4 years old. Herpes simplex virus (HSV) infection 05/15/1999 Overview (06/17/2018): Herpes simplex type 1 (cold sores). Assessment & Plan (01/27/2020 1:38 PM CDT): He uses acyclovir is needed for cold sores. We sent in a refill. Assessment & Plan (06/17/2018 12:24 PM FISCAL SERVICES DIRECTOR): He needed a refill of acyclovir for cold sores which occur from time to time. We sent that in. HIV (human immunodeficiency virus infection) Overview (09/30/2018): Human immunodeficiency virus (HIV) disease, increase in VL in 2017, genotype showed resistance mutations to NNRTI and 3TC. Switched to dolutegravir/tenofovir/abacavir with suppression of VL. Assessment & Plan (02/28/2025 3:27 PM CDT): Chronic, present for 20-30 years, controlled HIV infection, asymptomatic Asymptomatic HIV infection with CD4 count of 781 cells/mm and viral load of 27 copies/mL, indicating good control. - Continue current antiretroviral therapy - Check follow-up labs before next office visit Orders: Dexa Axial Skeleton Bone Density 1 or 2 Site; Future CBC with auto differential; Future Comprehensive metabolic panel; Future Hemoglobin A1c; Future Hepatitis C antibody Blood; Future HIV-1 RNA PCR, quantitative Blood; Future Lipid panel; Future N. gonorrhoeae/C. trachomatis Amplification Urine; Future RPR Blood; Future TB test, quantiferon gold; Future T-helper cells (CD4) count; Future Urinalysis reflex to microscopic and culture Urine, clean voided; Future Assessment & Plan (11/24/2024 7:37 PM CDT): See [facility] HPI/AP. Assessment & Plan (08/12/2024 5:51 AM CDT): Chronic, present for 20-30 years, recommend continuing highly active anti- retroviral therapy with tenofovir 300 mg daily, dolutegravir 50 mg daily, and abacavir 600 mg daily. Assessment & Plan (04/20/2024 9:15 AM FISCAL SERVICES DIRECTOR): Chronic, present for decades, uncontrolled in that his viral load is detectable but still at a low level on abacavir 300 mg twice daily, dolutegravir 50 mg nightly, and tenofovir 300 mg daily. CD4 count for some reason is not in his current results although it was ordered. We ordered follow-up labs to be done before his next visit in four months. Assessment & Plan (01/18/2024 1:51 PM CDT): Chronic, present for more than 20 years, controlled on abacavir 300 mg twice daily, tenofovir 300 mg daily, and dolutegravir 50 mg daily. CD4 count and viral load are in a good range. He seems to be tolerating the medication well. Continue same and follow-up in three months. Assessment & Plan (10/28/2023 2:51 PM CDT): - home meds when able to take po Assessment & Plan (07/17/2023 3:29 PM FISCAL SERVICES DIRECTOR): Viral load is < 20, detected. CD4 count he has in a good range. We will see him back in six months for HIV care. Assessment & Plan (04/17/2023 3:07 PM FISCAL SERVICES DIRECTOR): Viral load is undetected and CD4 count is greater than 1000 on abacavir, dolutegravir, and tenofovir. Assessment & Plan (01/11/2023 5:03 PM CDT): CD4 count is in a very good range. Viral load is <20, detected. He will continue abacavir tenofovir and dolutegravir. Assessment & Plan (11/16/2022 3:39 PM CDT): He will get labs done before his routine visit in January. We are foregoing the previously planned interim HIV viral load due to his acute illnesses which could cause a temporary measurable increase in viral load. Assessment & Plan (10/25/2022 2:48 PM CDT): His HIV disease has generally been well controlled recently. Once the acute problems are understood and treated, we plan to continue current therapy providing his deterioration is not related in some way to medication side effects. Assessment & Plan (10/11/2022 3:08 PM CDT): His last three viral loads have shown a possible trend upward. He is due for a recheck and he will get that done in the near future. For a routine follow-up, he is due in about two months with labs. Assessment & Plan (08/15/2022 3:40 PM CDT): Overall he is doing well on his current regimen with a very healthy CD4 count. Viral load shows a possible trend upward. We will check another viral load in two months. Follow-up in four months with quarterly HIV labs. HIV-1 RNA qn Reference range: NOT DETECTED copies/mL 86 High 08/10/2021 24 High 12/04/2021 CD4 cells 490 - 1,740 cells/uL 1,131 Assessment & Plan (04/18/2022 3:39 PM FISCAL SERVICES DIRECTOR): He went to get his labs drawn, but they could not find a vein. He was told to return when he was better hydrated. He will get those labs done sometime next week. In general, he is done pretty well on his current regimen. We will see him back in four months. Assessment & Plan (12/13/2021 2:11 PM CDT): He is doing well on current therapy with a CD4 count >1000 and a viral load barely detectable at 24, similar to past readings. We refilled Tivicay. He is also on Viread and Ziagen. Continue same. Assessment & Plan (08/03/2021 3:34 PM CDT): Viral load is < 20 on his current medications. Continue same and follow-up in four months. Assessment & Plan (04/15/2021 3:18 PM FISCAL SERVICES DIRECTOR): HIV labs about 6 weeks ago were stable with a CD4 count over 1000 and a VL of 20. We will get follow up labs before his next routine visit. Assessment & Plan (10/12/2020 2:49 PM CDT): HIV is well controlled with a viral load < 20 (detected) and CD4 count > 900. He is tolerating his medications. Continue same, and follow-up in four months. Assessment & Plan (06/01/2020 2:17 PM FISCAL SERVICES DIRECTOR): He is doing well on current therapy. CD4 count is around 800, and viral load is less than 20. Continue abacavir, Tivicay, tenofovir, Assessment & Plan (01/27/2020 1:39 PM CDT): He is stable on current therapy with less than 20 copies per mL (detected). Continue current therapy. Follow-up in four months. Assessment & Plan (09/15/2019 12:46 PM CDT): He is doing well on current therapy. Viral load is barely detectable at 25 copies/mL. CD4 count is in a good range at over 1000. We will check quarterly labs before his next visit in four months. Assessment & Plan (05/19/2019 12:46 PM FISCAL SERVICES DIRECTOR): He is doing well on current therapy. Viral load is less than 20 and CD4 count is in a good range. Continue same and follow-up in four months. Assessment & Plan (01/13/2019 11:50 AM CDT): He is doing well on current therapy. Viral load is completely suppressed. CD4 count remains a little low, but this could have something to do with his recent procedures, especially Wills's esophagus RFA treatment. We will check follow-up labs before his next visit in about four months. Assessment & Plan (10/14/2018 3:13 PM CDT): He is doing well on current therapy. Viral load is less than 20 and CD4 count is over 800. We will check labs before his next visit in about four months. Assessment & Plan (07/10/2018 10:07 PM FISCAL SERVICES DIRECTOR): Patient follows with ID regularly. Assessment & Plan (06/17/2018 12:24 PM FISCAL SERVICES DIRECTOR): He is doing very well on current therapy. CD4 count is around 600 and viral load is less than 20. Labs are stable. Continue same and follow-up in four months. Assessment & Plan (12/31/2017 1:42 PM CDT): Viral load is less than 20 and CD4 count is well preserved. He is tolerating his current therapy well. Continue same and follow-up in four months. Assessment & Plan (08/27/2017 12:22 PM CDT): He is doing well. Tolerating his medications without side effects. CD4 count is 535, and viral load is less than 20. Continue current medications and follow-up in four months. We will check another set of labs about one week prior to the appointment. Assessment & Plan (04/16/2017 12:25 PM FISCAL SERVICES DIRECTOR): He is on a new combination due to loss of viral control on his previous regimen. He is tolerating it well, but there is no lab follow-up yet due to insurance issues covering his lab testing. We are trying to get this straightened out and he will have labs drawn a soon is he can. In the meantime continue current therapy. Irritable bowel syndrome wit h both constipation and diarrhea 04/12/1997 Overview (04/16/2017): Responds to various remedies, sees Dr. Richards. Assessment & Plan (04/17/2023 3:08 PM FISCAL SERVICES DIRECTOR): He takes either Pepto-Bismol or Lomotil for occasional bowel problems. Recently he is not had to use either. Assessment & Plan (03/21/2022 3:32 PM FISCAL SERVICES DIRECTOR): He has a long history of intermittent loose to watery stools which responds well to Lomotil. His current prescription is over 4 years old so he requested a new one which we sent in. Assessment & Plan (04/16/2017 12:25 PM FISCAL SERVICES DIRECTOR): He needed a refill on the Lomotil which we provided. He was supposed to arrange for a completed colonoscopy over the past year or two, because the screening test was incomplete due to spasm or some sort of fixed stricture. He never set that up. We will check again with Dr. Richards to see where he would recommend that the patient go for this procedure. History of tobacco abuse 01/08/1974 Overview (04/16/2017): Started smoking as a teen, quit in about 2013 (approximately 40 pack years). Assessment & Plan (11/24/2024 7:36 PM CDT): See [facility] HPI/AP. Assessment & Plan (04/15/2024 3:29 PM FISCAL SERVICES DIRECTOR): Chronic, uncontrolled, present for decades, although he quit smoking cigarettes and now vapes. We encouraged cessation. Assessment & Plan (07/17/2023 3:28 PM FISCAL SERVICES DIRECTOR): He is currently vaping. Technically he is due for a low-dose CT of the chest, but he just had a CT pulmonary angiogram in April and no nodules were noted at that time so we are deferring lung cancer screening until next April. Assessment & Plan (08/15/2022 3:34 PM CDT): He had a CT of the chest during an ER visit in December. No suspicious nodules were reported although he did have some scattered areas of tree in bud nodularity, see discussion elsewhere. The exam was degraded by significant motion artifact. We will order a follow-up low-dose CT of his chest at appropriate intervals to screen for lung cancer. He did quit smoking nearly 10 years ago but still occasionally vapes. 1. Moderate lower lung predominant patchy ground-glass with scattered areas of tree-in-bud nodularity. This likely represents aspiration pneumonia. Follow-up chest CT is recommended in 2 months to document improvement. 2. Indeterminate mediastinal and hilar lymphadenopathy, likely reactive. Recommend close attention on follow-up. 3. No definite pulmonary embolism is seen given the limitations. 4. Small hiatal hernia with patulous distal esophagus. Assessment & Plan (03/29/2021 4:14 PM FISCAL SERVICES DIRECTOR): He quit smoking about six or seven years ago a total of 40 pack years. We discussed the option of low-dose CT scanning of the chest to screen for lung cancer, but he does not want to pursue any screening at this time. He has no new pulmonary symptoms. Assessment & Plan (06/01/2020 2:18 PM FISCAL SERVICES DIRECTOR): He quit smoking six or seven years ago. He qualifies for a low-dose CT scan but does not want to pursue it. Lungs are clear. Assessment & Plan (01/27/2020 1:40 PM CDT): He is a candidate for low-dose CT scan, but has decided not to pursue this test. He quit smoking about six years ago after a 40 pack-year history. Assessment & Plan (05/30/2019 9:51 AM FISCAL SERVICES DIRECTOR): He smoked for about 40 years, quit about five years ago. For awhile we followed a small pulmonary nodule with CXRs, and it remained stable, even resolved, so he has not had chest imaging recently. He qualifies for low-dose CT scanning of the chest, but after discussing pros and cons, he was to defer any decision making for now. He will call if he decides to proceed with the examination. Current Treatment and Therapy Plans No current plan information found. Past Treatment and Therapy Plans No past plan information found. Lifetime Dose Tracking * Chemical Lifetime Dose Automatic Entry Manual Entr y Fluoro Time 7.6 minutes 6.1 minutes 1.5 minutes Air kerma at the reference point (Ka,r) 30.7 mGy 3 0.7 mGy 0 mGy DLP 195 mGycm 195 mGycm 0 mGycm Resolved Problems Problem Noted Date Diagnosed Date Resolved Date Moderate malnutrition 08/14/20242024 COPD exacerbation 07/11/2024 08/12/2024 Overview (08/12/2024): Hospitalized, [facility], likely add a degree of aspiration pneumonia. Sepsis, due to unspecified o rganism, unspecified whether acute organ dysfunction present 05/04/2024 05/31/2024 Sepsis 05/04/2024 05/31/2024 Acute respiratory failure wi th hypoxia and hypercarbia 02/19/2023 08/12/2024 Overview (04/13/2023): See hospital records, [facility]. Acute lung injury associated with vaping 11/06/2022 01/11/2023 Overview (01/11/2023): Speculative cause of diffuse lung infiltrates Assessment & Plan (11/26/2022 8:44 AM CDT): He was in the hospital again for another five days due to hypoxemia and pulmonary infiltrates. The discharge diagnosis was a cute lung injury associated with vaping which is a diagnosis of exclusion. 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 He does not use any material from vape shops. Extensive workup for infectious etiologies was negative except for a positive Fungitell assay of uncertain significance. He is finally feeling better. Lungs are clear and oxygen saturation is back to normal. We will see him back as scheduled in January. Hypoxia 10/25/2022 01/11/2023 Overview (01/11/2023): See hospital records, resolved at 01/11/2023 office follow-up. Assessment & Plan (10/25/2022 2:58 PM CDT): He was hospitalized several times recently starting with a week in [place] when he was on a cruise. They treated him for pneumocystis pneumonia. He then returned to the local area feeling somewhat improved, but had to be rehospitalized about two weeks ago. 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 He was discharged and then rehospitalized last week with hypotension. Chest x-ray showed mild residual infiltrates. CT of the head was negative for acute changes. He stayed at the hospital for two days. Losartan was discontinued. His sister came with him to the office today and provides collateral history. Since discharge, he has not been thriving. He has been confused. He reports episodes of syncope. He called yesterday and we recommended re-evaluation in the emergency room but he declined and wanted to follow-up in the office today. There is no known head injury. On exam, blood pressure is normal. He has a regular tachycardia. Respirations are around 20 and unlabored. Oxygen saturation on room air is only 84%. We applied 2-3 L of oxygen and he came up to 93%. Exam of the heart and lungs except for tachycardia is unremarkable. Abdomen is moderately distended with gas but nontender. There is no peripheral edema. He has a global encephalopathy, answers questions slowly, has trouble following simple instructions. No definite focal neurological deficit is noted. He exhibits some intermittent myoclonic jerking in his arms. The cause of the patient's hypoxemia and encephalopathy is unclear. He could have a relapse of infection. Pulmonary embolism is a consideration. We called an ambulance and referred him back to the emergency room. We discussed the patient's condition and presentation with the emergency room physician, Dr. Guzman. Acute respiratory failure 10/25/2022 Overview (01/11/2023): Several admissions in quick succession with eventual resolution, no definite etiology ever identified. Assessment & Plan (10/30/2023 12:42 PM CDT): Reintubated in PACU. Extubated and transferred to 10/26 - CXR shows atelectasis - monitor closely - on RA at this time Hypotension, unspecified hypotension type 10/17/2022 01/11/2023 Overview (01/11/2023): He was having trouble with low blood pressures well at the hospital but this seems to be resolved. Thrush 10/01/2022 05/31/2024 Assessment & Plan (07/17/2023 3:32 PM FISCAL SERVICES DIRECTOR): He uses nystatin swish and swallow as needed for thrush. We corrected the record to reflect this use pattern. COVID-19 01/23/2022 04/14/2022 Overview (04/14/2022): Covid tests in record are negative. Possible + home test? Assessment & Plan (03/21/2022 3:32 PM FISCAL SERVICES DIRECTOR): His current respiratory symptoms could be a consequence of recent COVID infection with some chronic lung manifestations. Evaluation is pending as described. Colon cancer screening 01/09/202204/14 Overview (04/14/2022): Added automatically from request for surgery [id number], colonoscopy on 02/28/2022: Five sessile tubular adenomas were found in the transverse colon. Eight sessile tubular adenomas were found in the ascending colon. Bisi Delarosa. Aspiration pneumonia 12/23/2021 022 Overview (03/20/2022): See hospital records. Assessment & Plan (04/05/2022 7:47 AM FISCAL SERVICES DIRECTOR): He is still coughing, so we ordered a follow up CXR. Assessment & Plan (01/02/2022 3:50 PM CDT): Patient recently diagnosed and treated for aspiration pneumonia. He has completed abx as prescribed. He continues to have cough and SOB, but feeling improved. On exam today lungs are clear and oxygen saturation normal. Recommendation per hospital discharge is for f/u CT chest in 8 weeks which we will arrange. He will f/u post CT or sooner if needed. Severe sepsis 12/23/2021 04/14/2022 Overview (04/14/2022): Due to pneumonia, possible aspiration, see hospital records. Acute hypoxemic respiratory failure 12/23/2021 03/20/2022 Overview (03/20/2022): Due to aspiration pneumonia, see hospital records. Fever and chills 11/10/2021 05/31/2024 Overview (04/18/2022): Every other month episodes of rigors followed by low-grade fever, typically in the evening, followed by 24 hours of malaise. Symptoms then resolve. Assessment & Plan (05/05/2022 10:33 PM FISCAL SERVICES DIRECTOR): For the past several months, starting before he had aspiration pneumonia or COVID, he has been experiencing 24 hours low-grade fever and malaise. It occurs every other month and starts with a severe chill followed by a temperature of 100 - 101 F. he reports no other associated symptoms except for severe malaise that lasts 24 hours. He then feels well. The cause of the patient's symptoms is unclear. We discussed possible additional workup such as cultures, CT scanning, etc. He wants to defer any additional workup for now because he has a lot on my plate . I advised him to call for early follow-up if symptoms become more frequent or severe. Avulsion fracture of distal end of fibula 04/27/2021 07/29/2024 Closed nondisplaced fracture of distal phalanx of right great toe 04/27/2021 04/14/2022 Overview (04/14/2022): Details lacking. Syncope 03/29/2021 07/29/2024 Overview (08/03/2021): Three episodes since about the middle of February 2021, gets shaky, then passes out. No sooner than he hits the floor than he recovers. He has not checked blood sugars. Blood pressure has been normal. Assessment & Plan (01/11/2023 5:07 PM CDT): For the past year or so, he has not had any recurrence of syncope. A cardiac catheterizations planned. Assessment & Plan (10/25/2022 2:52 PM CDT): He started to experience syncopal episodes around the middle of February 2021. These occurred several times over the past year or so. He reports having at least one syncopal episode since discharge from his most recent hospitalization. Details are lacking. He denies head injury. Neurological exam is consistent with a global encephalopathy. CT head last week did not show any acute changes. Additional imaging and possibly EEG, spinal fluid analysis, and other testing may be needed. Assessment & Plan (08/15/2022 3:45 PM CDT): He reports no new issues. Cardiac workup was negative. We will monitor clinically. Assessment & Plan (08/03/2021 3:31 PM CDT): He has had no further episodes of syncope. Echocardiogram and 30 day event monitor were both unremarkable. If he has another episode, we will request a loop recorder. Assessment & Plan (05/14/2021 2:30 PM FISCAL SERVICES DIRECTOR): He has had three episodes of syncope since the middle of February. He forgot to mention it at his last office visit in March. He gets shaky then passes out. As soon as he hits the floor, he recovers consciousness. He checked blood pressures which were normal. On one of his episodes he fractured his right distal fibula. He is wearing a clamshell boot. In the office, he has significant orthostatic changes in blood pressure but not pulse. Systolic blood pressure went from 120 to 90 and diastolic from 82 to 68. He says he drinks plenty of water. He has not had fever, diarrhea or other acute illness. He has had a recurrence of his cough, see discussion elsewhere. We are getting some basic labs and ordering a 30 day event monitor and echocardiogram. We lowered his dose of losartan and we will have him stop his metoprolol for now. Return in one week for blood pressure check. Cough variant asthma 11/23/2020 025 Overview (04/14/2022): Cough in November 2020, resolved with empiric antibiotics, recurred mid April 2021. Crackles in lung bases on exam. Hospitalized for aspiration pneumonia, December 2021. Assessment & Plan (08/24/2023 4:49 PM CDT): His asthma and cough are generally fairly well controlled on his current inhalers, but the Wixela is not as effective as his prior inhalers. There is no audible wheezing today. He has no oral thrush which has trouble him a little bit recently. We sent in his preferred inhaler which is what his sister uses (Anoro), and hopefully see an improvement. Assessment & Plan (04/17/2023 3:07 PM FISCAL SERVICES DIRECTOR): He needed a refill of Breo Ellipta but this is no longer covered by his insurance so we sent in an alternative prescription for Advair 500. Assessment & Plan (01/11/2023 5:02 PM CDT): He has a history of recurring cough including several hospitalizations this past summer following a [place] cruise. No definite infectious etiology was ever found. 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 Currently lungs are clear except for a few left base crackles. Oxygen saturation is normal on room air so he seems to be improved. He has an albuterol inhaler for use as needed. Assessment & Plan (08/28/2022 9:43 AM CDT): He was hospitalized last December with probable aspiration pneumonia. CT of the chest at that time showed some scattered ground-glass infiltrates and tree in bud nodularity. He continues to have a cough but overall feels improved on albuterol and Breo Ellipta. He previously declined follow-up imaging for the abnormalities seen on CT scan, and overall seems to be stable with no fever or constitutional symptoms. He does bring up clear to yellow phlegm most days. He denies hemoptysis. More than likely he has a chronic bronchitis from years of smoking (quit almost 10 years ago but still occasionally vapes). We will monitor clinically, and order a follow-up chest CT when he is due for lung cancer screening. Assessment & Plan (05/05/2022 10:32 PM FISCAL SERVICES DIRECTOR): He is experiencing a persistent cough. In the past it has been somewhat intermittent and probably related to a degree of chronic lung disease from past smoking. Currently he coughs almost every day, brings up light yellow to darker yellow sputum. He denies hemoptysis. His chest gets sore from all the coughing. He also has infrequent fever and chills, about every two months, which lasts for 24 hours and then resolves. Exam shows moderate diffuse wheezing. A chest x-ray in March showed that previous infiltrates from aspiration/COVID had cleared. At a recent visit, we gave him a Breo inhaler sample which he says was more effective than his albuterol inhaler at controlling his symptoms. He has run out so we sent in a refill. He should follow-up early if symptoms are not controlled. Assessment & Plan (04/05/2022 7:49 AM FISCAL SERVICES DIRECTOR): He has a history of recurring coughs. More recently (3 months) he was in the hospital with bibasilar pneumonia. Initially some of this was probably due to COVID. Later, aspiration was suspected. He was treated and improved including radiographic resolution of infiltrates on a follow-up chest x-ray. However his cough has persisted. He brings up bright yellow to slightly darker yellow phlegm every day. He denies hemoptysis. He has pain in the mid to upper back but this improved slightly with chiropractic manipulation. He denies fever or night sweats. Exam is notable for some mild scattered wheezing but no crackles. Oxygen saturation is borderline on room air. We will get a chest x-ray and a CBC/BMP. We will get him started on some Augmentin for what sounds like a purulent bronchitis. He has an albuterol inhaler at home which he has been using. We will add a sample of Breo Ellipta for daily use. He has a follow-up in about three weeks which he will keep. Assessment & Plan (05/03/2021 3:47 PM FISCAL SERVICES DIRECTOR): He has had a recurrence of a cough. This developed in November and lasted for several weeks. A chest x-ray was normal. He received empiric antibiotics with resolution of the symptoms. The current cough is been present for about a week. He brings up yellow sputum. He is not running a fever. He denies severe coughing fits at the time of his syncopal episodes. We will repeat a chest x-ray and see him back in a week. Assessment & Plan (11/30/2020 2:05 PM CDT): He has had a cough for about a week. He thinks it might be getting worse. He is bringing up yellow phlegm. There is no pleuritic pain or hemoptysis. He is not aware of a fever, but says he does sometimes feel warm which is unusual for him because he is usually cold. Exam shows some focal right lower to mid lung coarse rhonchi and crackles. We will get a chest x-ray and probably put him on some antibiotics. Follow-up early as needed for this problem. Injury of right knee 06/03/2020 025 Subcutaneous nodule 04/12/2020 05/31/19 25 Overview (06/01/2020): Approximately 1.0 x 1.5 cm subcutaneous nodule the low and slightly left of umbilicus, probably a lipoma versus a small hernia containing fat. No filter changer one year. Assessment & Plan (06/01/2020 2:12 PM FISCAL SERVICES DIRECTOR): About one year ago, he noticed a subcutaneous nodule in the lower abdomen just to the left and below the umbilicus. It measures about 1.0 x 1.5 cm and sometimes gets a little tender but has not changed in size since he first noticed it. Exam suggests a lipoma in this area. A small hernia containing fat is another consideration. Since it is minimally symptomatic, we will defer any additional evaluation at this time. Dry skin dermatitis 03/13/2020 06/08/19 Overview (06/01/2020): Lower abdomen and lower back, moisturizing creams recommended. Assessment & Plan (06/01/2020 2:18 PM FISCAL SERVICES DIRECTOR): He has a red bumpy itchy rash over his lower abdomen and lower back. It looks like a dry skin dermatitis, probably from the winter air. I recommend a moisturizing cream. Skin lesion of face 09/11/2019 07/30/19 Overview (02/11/2021): Left anterior baptism. Probably basal cell cancer. Excised 11/15/2020, left baptism, BASAL CELL CARCINOMA, Sabrina Wesley, [facility], plastic surgery. Assessment & Plan (10/15/2020 3:37 PM CDT): He has a small plaque on the anterior left baptism which has not healed. It measures slightly less than 1 cm in size and has a crusted eschar like appearance. He has had basal cell cancers removed in the past by Dr. Lau at [facility], but he wants to see Dr. Shah this time, so we will put in a referral. History of Wills's esophagus 07/03/2019 09/15/2019 Overview (09/15/2019): Added automatically from request for surgery [id number], see endoscopy reports. Hypercalcemia 05/14/2019 09/15/2019 Overview (09/15/2019): Calcium 10.5, but corrected calcium 10.1, and a follow-up normal. Assessment & Plan (05/19/2019 12:47 PM FISCAL SERVICES DIRECTOR): On his recent labs, there was a mild elevation of calcium but corrected calcium for albumin level is technically in the normal range, albeit upper level of normal. We will check again in four months, and if there are any trends, consider additional workup. Nonhealing skin ulcer 03/13/20192022 Overview (08/14/2022): Left anterior baptism, polygonal ulcer with eschar, keeps falling off and recurring x 18 months, likely a basal cell cancer. 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 Solorzano. Assessment & Plan (08/03/2021 3:32 PM CDT): A left anterior baptism ulcer was resected. It was basal cell cancer. He healed well. He will keep his follow ups with Plastic surgery. 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 Assessment & Plan (06/01/2020 2:15 PM FISCAL SERVICES DIRECTOR): For the last 1-1.5 years, he has had an ulcerated area on the left anterior baptism that scabs up. The scab falls off when he showers, but it never completely heals. He had a basal cell cancer removed from the right nasal ala about three years ago. This could be a similar problem so we will refer him to Dr. Shah. Wills's esophagus with low grade dysplasia 9 01/18/2019 Overview (10/03/2018): Added automatically from request for surgery [id number] Wills's esophagus with dysplasia 06/11/2018 06/17/2018 Overview (06/11/2018): Added automatically from request for surgery [id number] Borderline diabetes 12/23/2017 01/27/20 Overview (01/27/2020): Transitioned to diabetes, January 2020, with 2 consecutive HgbA1C in diabetic range. Assessment & Plan (09/15/2019 12:44 PM CDT): He has had borderline diabetes going back few years. We checked a follow-up hemoglobin A1c, and it has gone up a bit to 6.8% which is above the threshold for actual diabetes. He also had a fasting blood sugar of 141 mg per dL. He has put on a few lb. We advised a low-carbohydrate diet and some weight loss. Hopefully this will return things back to his baseline. Check a follow-up hemoglobin A1c before his next visit in four months. Assessment & Plan (05/19/2019 12:40 PM FISCAL SERVICES DIRECTOR): Blood sugars have been somewhat borderline for quite a few years now. The last hemoglobin A1c was only 5.8% a few years ago. We will check another one to see if there has been any progression over time. Assessment & Plan (12/31/2017 1:35 PM CDT): Blood sugars have been mildly elevated at times, but the most recent nonfasting blood sugar was nearly 160 indicating diabetes or at least a risk of diabetes. It does run in his family. He has put on a fair amount of weight over the past 6-8 months. He should start working on his diet to avoid future complications. Tinea corporis 08/27/2017 05/31/2024 Assessment & Plan (08/27/2017 12:27 PM CDT): He was unaware of a rash on his back. It is fairly characteristic of tinea corporis which I am pretty sure he has had in the past. We will put him on some ketoconazole cream. If there is no response, he should return early or go see his jalousie installer for further evaluation and treatment. Foot-drop 04/14/2013 12/31/2017 Overview (12/31/2017): Right foot drop, resolved with surgery at [facility] to unpinch a nerve. Ankle pain 04/14/2013 07/29/2024 Overview (04/16/2017): Sees Dr. Andria Thornton. Assessment & Plan (08/24/2023 4:48 PM CDT): Right ankle is swollen and hurts. In March 2022 he fractured the lateral malleolus. More recently it is the medial ankle that is swollen and tender. He wore a CAM boot which he had from 7 years ago for a previous injury which helped. He is making good progress, so we will monitor clinically without any change at this time. Assessment & Plan (04/16/2017 12:29 PM FISCAL SERVICES DIRECTOR): For the past couple of months or so, he has had trouble with left ankle pain and swelling. Previously he had trouble with his right ankle. He went to see Dr. Thornton, in sports medicine, and an x-ray was performed that showed some arthritis. Details are not currently available. Apparently Dr. Thornton also thought there might be some gout in the joint. He has been taking [id number] ibuprofen 600 mg 3 times a day without much benefit. He wears an ankle brace. Exam shows some mild joint thickening with no definite joint effusion. There is no significant tenderness. He does have a follow-up with Dr. Thornton I believe in a couple of weeks. Local steroid injections or an oral steroid Dosepak might be helpful. He will discuss the these interventions with Dr. Thornton. Pain of lower extremity 06/11/201110/11 Overview (07/02/2020): Bilateral leg pain MRI of right knee 06/30/2020: 1. Marrow edema involving the anteromedial non articular distal right femoral condyle. This is nonspecific, but may represent a contusion. 2. Mild medial and patellofemoral bicompartmental right knee chondrosis. 3. Intact right knee menisci, cruciate and collateral ligaments. 4. Mild insertional tendinopathy of the right biceps/conjoined tendon. 5. Small right knee effusion. Benign hypertension 08/28/2002 12/25/19 Overview (08/16/2016): Hypertension, benign Other insomnia 11/11/1999 10/28/2023 Overview (09/15/2019): Trazodone started years ago by Dr. Gold, no longer effective Assessment & Plan (08/15/2022 3:43 PM CDT): He needed a refill of trazodone which we sent in. He says it works well for him. Assessment & Plan (06/01/2020 2:15 PM FISCAL SERVICES DIRECTOR): Earlier this year he said that trazodone was no longer effective for his insomnia. We stopped it and I believe we tried a different medication which was also ineffective. He says he has tried Ambien in the past, and it did not work. He wants to go back on trazodone but at a higher dose. We sent in a prescription, risks of medication discussed. Assessment & Plan (01/30/2020 11:42 AM CDT): Trazodone (which was originally prescribed years ago by his psychiatrist) is no longer helping him get a good night's sleep. He has already tapered the dose and we took it off his list. He would like to try something different. He has already tried and failed Ambien and Lunesta. I asked him to discuss alternatives with pain management, since there could be significant impacts on his chronic pain treatment, especially for benzodiazepines. Assessment & Plan (09/26/2019 10:45 AM CDT): He has been on trazodone for over 20 years, started by his psychiatrist at that time, Dr. Gold. He is not currently seeing a psychiatrist. He says his mood is good, but he has trouble falling and staying asleep. We discussed sleep hygiene, and he says he does not nap during the daytime, drink caffeine in the latter part of the day, engage in excessively stimulating activity before bedtime, or drink excess alcohol (alcohol has been a problem in the past). He does not feel anxious or depressed. The problems with sleep have developed over the past six months to a year. It could be that the trazodone is losing its effectiveness. We will have him taper and stop it over period of two weeks. We discussed the cognitive behavioral therapy of insomnia, and also gave him a list of alternative sleep aids that could be considered. He will call back in a couple of weeks and we will look into starting him on something that he feels is acceptable, and which does not have significant interactions with his multiple medications. Migraine headaches 11/11/1999 2 Overview (04/14/2022): Controlled with topiramate. Similar diagnosis present on problem list.
--- OUTSIDE RECORDS SUMMARY | 2025-04-06 18:01 | XMS_ITS | Clinical Summary ---
Author Organization [facility] Address [address] [place] [address] Care Team Providers Care Meter/Relay Craftsman Name Role Phone Georgiana Rodriguez MD Primary Care Provider [phone] Ro Kriby MD Unavailable [phone] Nava Xiao MD Unavailable [phone] Tianna Richards MD Unavailable [phone] Jaylen Lau MD Unavailable [phone] Betzaida Oviedo CODE AND TEST CLERK Unavailable [phone] Ramone Lafleur CODE AND TEST CLERK Unavailable [phone] Bre Nieto MD Unavailable [phone] Xochitl Nails MD Unavailable [phone] Bryan Pierson MD Unavailable Eron Mast MD Unavailable [phone] Francesco Kam NP Unavailable [phone] Khadra Cavazos NP Unavailable [phone] Michele Monroe MD Unavailable [phone] Nir Hastings MD Unavailable [phone] Siobhan Walls NP Unavailable [phone] Allergies Active Allergy Reactions Criticality Noted Date Comments Cefepime Hives Medium 11/27/2022 Medications ferrous gluconate (FERGON) 240 mg (27 mg of elemental iron) tabletIndications :Iron Deficiency Anemia Take 65 mg by mouth every morning Active Xtampza ER 18 mg capsule,sprinkle, ER 12hr tmprrIndications: severe chronic pain requiring long-term opioid treatment Take 1 capsule (18 mg total) by mouth 2 (two) times a day Active rOPINIRole (REQUIP) 0.5 mg tabletIndications :Restless Legs Syndrome Take 3-4 tablets (1.5-2 mg total) by mouth nightly 3-4 tablets Active SUMAtriptan (IMITREX) 25 mg tabletIndications :Migraine Take 2 tablets (50 mg total) by mouth as needed for migraine 2 tablets 024 Active gabapentin (NEURONTIN) 600 mg tabletIndications :Neuropathic Pain Take 2 tablets (1,200 mg total) by mouth 3 (three) times a day 2 tablets 024 Active topiramate (TOPAMAX) 50 mg tabletIndications :Migraine Prevention Take 1 tablet (50 mg total) by mouth 2 (two) times a day 024 Active lancets (Accu-Chek Softclix Lancets) miscIndications:T ype 2 diabetes mellitus without complication, without long-term current use of insulin ([facility]) TEST BLOOD SUGAR EVERY DAY 100 each 4 025 Active Accu-Chek Guide test strips stripIndications: Type 2 diabetes mellitus without complication, without long-term current use of insulin ([facility]) TEST BLOOD SUGAR ONCE A DAY 100 strip 3 025 Active multivitamin tabletIndications :Vitamin Deficiency Prevention Take 1 tablet by mouth daily after lunch Active cholecalciferol 25 mcg (1,000 unit) tabletIndications :supplement Take 1 tablet (1,000 Units total) by mouth every morning Active dilTIAZem CD/XR/XT (dilTIAZem CD) 120 mg 24 hr capsule Take 1 capsule (120 mg total) by mouth daily Active dilTIAZem (CARDIZEM) 30 mg tablet Take 1 tablet (30 mg total) by mouth 2 (two) times a day as needed (I take when feeling palpitations) Active albuterol 2.5 mg /3 mL (0.083 %) nebulizer solution Take 3 mL (2.5 mg total) by nebulization every 6 (six) hours as needed for wheezing or shortness of breath 360 mL 3 025 Active empagliflozin (Jardiance) 10 mg tabletIndications :Type 2 diabetes mellitus without complication, without long-term current use of insulin (HCC) TAKE 1 TABLET(10 MG) BY MOUTH DAILY 90 tablet 1 025 Active pravastatin (PRAVACHOL) 40 mg tabletIndications :Hyperlipidemia associated with type 2 diabetes mellitus (HCC) TAKE 1 TABLET(40 MG) BY MOUTH DAILY 90 tablet 1 025 Active venlafaxine XR (EFFEXOR-XR) 75 mg 24 hr capsuleIndication s:Persistent mood disorder Take 1 capsule (75 mg total) by mouth daily With a 150mg cap for total dose of 225mg. 90 capsule 1 025 2025 Active fluticasone-umecl idin-vilanter (Trelegy Ellipta) 100-62.5-25 mcg inhaler Inhale 1 puff daily 60 each 025 Active albuterol HFA (PROVENTIL HFA,VENTOLIN HFA,PROAIR HFA) 90 mcg/actuation inhaler Inhale 2 puffs every 6 (six) hours as needed for wheezing or shortness of breath 18 g 11 025 Active venlafaxine XR (EFFEXOR-XR) 150 mg 24 hr capsuleIndication s:Anxiety with Depression Take 1 capsule (150 mg total) by mouth every morning Takes 150 mg and 75 mg together to equal 225 mg. 90 capsule 1 025 Active cyclobenzaprine (FLEXERIL) 10 mg tablet Take 1 tablet (10 mg total) by mouth 3 (three) times a day as needed 025 Active nystatin 100,000 unit/mL suspensionIndicat ions:Thrush, oral Take 5 mL (500,000 Units total) by mouth 4 (four) times a day 500 mL [address] (PROTONIX) 40 mg EC tabletIndications :Gastroesophageal reflux disease with esophagitis without hemorrhage Take 1 tablet (40 mg total) by mouth 2 (two) times a day 180 tablet 3 025 Active allopurinoL (ZYLOPRIM) 100 mg tabletIndications :Chronic gout without tophus, unspecified cause, unspecified site TAKE 1 TABLET(100 MG) BY MOUTH DAILY 90 tablet 1 025 Active sulfamethoxazole- trimethoprim (BACTRIM DS) 800-160 mg per tabletIndications :Asymptomatic HIV infection, with no history of HIV-related illness (HCC) Take 1 tablet (160 mg of trimethoprim total) by mouth 3 (three) times a week 36 tablet 1 025 Active famotidine (PEPCID) 40 mg tabletIndications :gastroesophageal reflux disease Take 1 tablet (40 mg total) by mouth daily 90 tablet 025 Active tamsulosin (FLOMAX) 0.4 mg extended release capsuleIndication s:Benign prostatic hyperplasia with nocturia TAKE 1 CAPSULE(0.4 MG) BY MOUTH TWICE DAILY 180 capsule 1 025 Active traZODone (DESYREL) 50 mg tabletIndications :Other insomnia TAKE 3 TO 4 TABLETS(150 TO 200 MG) BY MOUTH EVERY NIGHT 120 tablet 2 025 Active oxyCODONE (ROXICODONE) 10 mg tabletIndications :Pain Take 1 tablet (10 mg total) by mouth 2 (two) times a day as needed for pain Active diphenoxylate-atr opine (LOMOTIL) 2.5-0.025 mg per tabletIndications :Functional diarrhea Take 1 tablet by mouth 4 (four) times a day as needed for diarrhea 30 tablet 5 025 Active ondansetron ODT (ZOFRAN-ODT) 4 mg disintegrating tabletIndications :Migraine without aura and without status migrainosus, not intractable Take 1 tablet (4 mg total) by mouth every 4 (four) hours as needed for nausea or vomiting Dissolve on tongue. 30 tablet 5 025 Active acyclovir (ZOVIRAX) 400 mg tablet Take 1 tablet (400 mg total) by mouth 2 (two) times a day 025 Active lactulose 0.67 gram/mL solution Take 30 mL (20 g total) by mouth 3 (three) times a day as needed (Constipation) 025 Active azelastine (Astepro Allergy) 205.5 mcg (0.15 %) spray,non-aerosol Indications:Seaso nal Allergic Rhinitis,[place] r Rhinitis Administer 0.15-0.3 mL (1-2 sprays total) into each nostril 2 (two) times a day 025 Active tenofovir disoproxil fumarate (VIREAD) 300 mg tabletIndications :Asymptomatic HIV infection (HCC) Take 1 tablet (300 mg total) by mouth daily 30 tablet 5 025 Active polyethylene glycol (GoLYTELY) 236-22.74-6.74 -5.86 gram solution TAKE HALF OF THE PREP SOLUTION AT 6:00 PM THE EVENING BEFORE COLON TAKE THE OTHER HALF 4 HOURS BEFORE ARRIVAL OF COLON AT 8:15 AM. 4000 mL 025 Active metFORMIN (GLUCOPHAGE) 500 mg tabletIndications :Type 2 diabetes mellitus without complication, without long-term current use of insulin (HCC) TAKE 1 TABLET(500 MG) BY MOUTH TWICE DAILY WITH MEALS 180 tablet 025 Active apixaban (Eliquis) 5 mg tabletIndications :Atrial flutter, unspecified type (HCC) TAKE 1 TABLET(5 MG) BY MOUTH TWICE DAILY 60 tablet 1 025 Active Vascepa 1 gram capsuleIndication s:Hyperlipidemia associated with type 2 diabetes mellitus (HCC) TAKE 2 CAPSULES(2 GRAMS) BY MOUTH TWICE DAILY 360 capsule 1 025 Active Tivicay 50 mg tabletIndications :Asymptomatic HIV infection, with no history of HIV-related illness (HCC) TAKE 1 TABLET(50 MG) BY MOUTH DAILY AFTER LUNCH 30 tablet 2 025 Active abacavir (ZIAGEN) 300 mg tabletIndications :Asymptomatic HIV infection, with no history of HIV-related illness (HCC) TAKE 1 TABLET(300 MG) BY MOUTH TWICE DAILY 60 tablet 2 025 Active Vascepa 1 gram capsuleIndication s:Hyperlipidemia associated with type 2 diabetes mellitus (HCC) TAKE 2 CAPSULES(2 GRAMS) BY MOUTH TWICE DAILY 360 capsule 1 025 2024 Discontinued apixaban (Eliquis) 5 mg tabletIndications :Atrial flutter, unspecified type (HCC) Take 1 tablet (5 mg total) by mouth 2 (two) times a day 025 2024 Discontinued abacavir (ZIAGEN) 300 mg tabletIndications :Asymptomatic HIV infection, with no history of HIV-related illness (HCC) TAKE 1 TABLET(300 MG) BY MOUTH TWICE DAILY 60 tablet 2 025 2024 Discontinued dolutegravir (Tivicay) 50 mg tabletIndications :Asymptomatic HIV infection, with no history of HIV-related illness (HCC) TAKE 1 TABLET(50 MG) BY MOUTH DAILY AFTER LUNCH 30 tablet 2 025 2024 Discontinued Active Problems Problem Noted Date Diagnosed Date [...] 06/08/2024 Assessment & Plan (06/10/2024 8:46 PM CLIENT SERVICES ACCOUNT MANAGER): Acute, radicular pain mostly to hands worse [...] 05/31/2024 Assessment & Plan (05/31/2024 4:45 PM CLIENT SERVICES ACCOUNT MANAGER): Chronic, controlled on trazodone nightly. Refilled today Malignant neoplasm of lower third of esophagus 1 05/26/2023 Assessment & Plan (04/15/2024 3:31 PM CLIENT SERVICES ACCOUNT MANAGER): Chronic, hopefully cured after extensive surgical intervention including a partial esophagectomy and gastric pull up. A recent follow-up endoscopy was performed. He is on close observation by the GI service at [facility]. He takes dual acid suppression therapy. Continue same. Hypophosphatemia 10/28/2023 Assessment & Plan (10/28/2023 2:50 PM CDT): - replete as needed - monitor Vocal cord dysfunction 10/28/2023 Assessment & Plan (10/30/2023 12:44 PM CDT): - Left cord out - ENT injection 10/28 - FEES with [employer], cleared for thin/regular liquids COPD (chronic obstructive [...] does not preclude their use. Recommend continuing gdsxexonss-rzantnunjvrhkr-qyftdkzbje 160-9-4.8 inhaler twice daily, and ipratropium-albuterol 20-100 mcg rescue inhaler 4 times daily as needed. Assessment & Plan (04/15/2024 3:27 PM CLIENT SERVICES ACCOUNT MANAGER): Chronic, present for a number of years, [...] WRITTEN ON 04/02/2024 11:49 AM BY GEORGIANA RODRIGUEZ MD Cardiac catheterization 01/21/2023: No significant CAD, SHRUTHI Ni. Assessment & Plan (04/02/2024 11:54 AM CLIENT SERVICES ACCOUNT MANAGER): Chronic, first noted about a year ago, stable. Cardiac catheterization on 01/21/2023 was negative for significant coronary disease. His chest pain is probably due to noncardiac causes including significant esophageal disease and acid reflux. Aspirin is relatively contraindicated due to use of apixaban for paroxysmal atrial fibrillation. We will monitor clinically. Assessment & Plan (04/02/2024 11:49 AM CLIENT SERVICES ACCOUNT MANAGER): >>ASSESSMENT AND PLAN FOR CARDIOVASCULAR STRESS TEST ABNORMAL WRITTEN ON 01/11/2023 5:00 PM BY GEORGIANA RODRIGUEZ MD Cardiology apparently plans a cardiac catheterization [...] cardiology. Assessment & Plan (04/20/2024 9:16 AM CLIENT SERVICES ACCOUNT MANAGER): Chronic, controlled on diltiazem and apixaban. Heart rate is somewhat elevated but regular. He reports that his pulse rate is somewhat unstable and accelerates for no good reason. He denies chest pain or pressure at this time, although he has had noncardiac chest pain in the past, likely related to esophageal disease. He will keep his follow ups with Cardiology, currently seeing Francesco Kam nurse practitioner. Next appointment is in May. [...] CDT): >>ASSESSMENT AND PLAN FOR ATRIAL FLUTTER ([facility]) ([facility]) WRITTEN ON 01/13/2023 3:19 PM BY GEORGIANA RODRIGUEZ MD A recent event monitor showed several [...] FOR ATRIAL FLUTTER (CMS/HCC) (HCC) WRITTEN ON 04/17/2023 3:06 PM BY GEORGIANA RODRIGUEZ MD He had some atrial fibrillation/flutter when [...] WRITTEN ON 07/17/2023 3:24 PM BY GEORGIANA RODRIGUEZ MD Heart rhythm is currently regular. He [...] WRITTEN ON 04/13/2023 7:19 PM BY GEORGIANA RODRIGUEZ MD Multiple lobes affected, see hospital records. >>OVERVIEW FOR PNEUMONIA OF BOTH LOWER LOBES DUE TO INFECTIOUS ORGANISM WRITTEN ON 10/02/2022 10:00 AM BY GEORGIANA RODRIGUEZ MD Follow up from [facility], hospitalized in [place], treated for PCP and GNR. Assessment & Plan (06/10/2024 8:40 PM CLIENT SERVICES ACCOUNT MANAGER): Acute, PNA symptoms resolved s/p hospital treatment [...] symptoms. Assessment & Plan (05/31/2024 4:45 PM CLIENT SERVICES ACCOUNT MANAGER): Acute, see recent hospitalization above for right [...] symptoms. Assessment & Plan (04/17/2023 3:09 PM CLIENT SERVICES ACCOUNT MANAGER): He had multiple recent hospitalization for fairly severe pneumonia, mostly in the left lung. The exact etiology was never identified. At his last discharge, he was placed on trimethoprim sulfa and seems to be doing well. He will follow-up with Dr. Pierson to see if a follow-up bronchoscopy or CT scan is appropriate. Assessment & Plan (04/13/2023 7:19 PM CLIENT SERVICES ACCOUNT MANAGER): >>ASSESSMENT AND PLAN FOR PNEUMONIA OF BOTH LOWER LOBES DUE TO INFECTIOUS ORGANISM WRITTEN ON 10/22/2022 8:26 AM BY GEORGIANA RODRIGUEZ MD He went for a cruise last month, stopping in [place], but was otherwise on the ship the entire time. He became ill when they arrived in [place] and was hospitalized for several days with pulmonary infiltrates thought to be due to Pneumocystis infection. However, CD4 counts have been in a normal range for quite a while and he should not be at risk for pneumocystis. After getting back from [place], respiratory symptoms relapsed and he was hospitalized at [facility]. Diagnostic workup included a positive Fungitell test suggesting the possibility of a fungal infection such as Coccidioides. However the source of this infection remains unclear. Other fungal infections are possible. He became ill before he arrived in [place]. He does seem to be improved on fluconazole. He completes cefdinir today. He is no longer taking any medication for PCP. He denies side effects from treatment of the pneumonia. We will see him back as scheduled in December or sooner if needed. Assessment & Plan (04/13/2023 7:19 PM CLIENT SERVICES ACCOUNT MANAGER): >>ASSESSMENT AND PLAN FOR PNEUMONIA OF BOTH LOWER LOBES DUE TO INFECTIOUS ORGANISM WRITTEN ON 10/25/2022 2:49 PM BY GEORGIANA RODRIGUEZ MD He was in the hospital several times recently and treated for multiple possible etiologies of pneumonia including Pneumocystis, community-acquired, Gram- negative, and fungal. His most recent chest x-ray from last week did show significant improvement. Follow-up imaging of the chest will be needed. Wills's esophagus without dysplasia 02/28/2022 Overview (04/14/2022): See EGD and Bisi adams. Assessment & Plan (04/18/2022 3:35 PM CLIENT SERVICES ACCOUNT MANAGER): His most recent EGD about two months [...] (11/25/2024 2:55 PM CDT): See [facility] HPI/AP. Assessment & Plan (05/31/2024 4:44 PM CLIENT SERVICES ACCOUNT MANAGER): See hospital details above, testing and labs [...] 01/07/2024 Assessment & Plan (07/17/2023 3:29 PM CLIENT SERVICES ACCOUNT MANAGER): He continues on pravastatin. We will monitor lipids at least annually. Assessment & Plan (04/17/2023 3:07 PM CLIENT SERVICES ACCOUNT MANAGER): He is taking generic pravastatin, tolerating well. [...] 08/10/2022 Assessment & Plan (04/18/2022 3:39 PM CLIENT SERVICES ACCOUNT MANAGER): He is on pravastatin, tolerating well. Continue [...] prescription. Assessment & Plan (03/29/2021 4:13 PM CLIENT SERVICES ACCOUNT MANAGER): He takes generic Pravachol 40 mg daily. He seems to be tolerating it well. He was on Vascepa, but it is not covered by his insurance so he plans to go back to [place]. We sent in a prescription. Assessment & Plan (10/12/2020 2:48 PM CDT): He is on generic Pravachol, tolerating well. Continue same. 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 Kirby. Assessment & Plan (06/01/2020 2:16 PM CLIENT SERVICES ACCOUNT MANAGER): He is on pravastatin, tolerating well. We will check lipids before his next visit in about four months. Assessment & Plan (01/27/2020 1:40 PM CDT): He continues on pravastatin, tolerating well. We will check lipids periodically. Assessment & Plan (05/19/2019 12:48 PM CLIENT SERVICES ACCOUNT MANAGER): He is tolerating Pravachol well which seems [...] same. Assessment & Plan (06/17/2018 12:25 PM CLIENT SERVICES ACCOUNT MANAGER): He is on Pravachol, tolerating well (mild [...] needed. Assessment & Plan (04/16/2017 12:24 PM CLIENT SERVICES ACCOUNT MANAGER): Follow-up labs including lipid panel are due, [...] HPI/AP. Assessment & Plan (05/31/2024 4:47 PM CLIENT SERVICES ACCOUNT MANAGER): Chronic, at goal. BP stable in office [...] appropriate Assessment & Plan (07/17/2023 3:30 PM CLIENT SERVICES ACCOUNT MANAGER): Blood pressure is in a good range, perhaps even on the low side, since starting diltiazem for atrial flutter. We are also increasing his Flomax due to prostate symptoms and we advised him to carefully monitor blood pressure at home. Assessment & Plan (04/17/2023 3:08 PM CLIENT SERVICES ACCOUNT MANAGER): Blood pressure is well controlled. He takes [...] same. Assessment & Plan (04/18/2022 3:40 PM CLIENT SERVICES ACCOUNT MANAGER): Blood pressure is in a good range [...] home. Assessment & Plan (05/03/2021 3:46 PM CLIENT SERVICES ACCOUNT MANAGER): Blood pressure is in a low normal range and he has significant orthostatic changes which might explain his syncope. We are adjusting blood pressure medications as discussed elsewhere. Return in one week for a blood pressure check. Assessment & Plan (03/29/2021 4:12 PM CLIENT SERVICES ACCOUNT MANAGER): Blood pressure is in a good range on current therapy. He denies having chest pain or pressure. Continue same. Assessment & Plan (10/12/2020 2:47 PM CDT): Blood pressure is on the low side of normal. He denies feeling dizzy or lightheaded. We will lower the losartan dose slightly. Assessment & Plan (06/01/2020 2:18 PM CLIENT SERVICES ACCOUNT MANAGER): Blood pressure is in a good range [...] periodically. Assessment & Plan (05/19/2019 12:41 PM CLIENT SERVICES ACCOUNT MANAGER): Diastolic blood pressure is borderline today. He [...] same. Assessment & Plan (06/17/2018 12:23 PM CLIENT SERVICES ACCOUNT MANAGER): Blood pressure is in a very good [...] months. Assessment & Plan (04/16/2017 12:26 PM CLIENT SERVICES ACCOUNT MANAGER): Blood pressure is in a good range. [...] See [facility] HPI/AP. Assessment & Plan (08/12/2024 5:54 AM CDT): Chronic, present for the past five years or so, recommend continuing metformin 500 mg twice daily, and empagliflozin 10 mg daily. We reminded him that his diabetic eye exam is due. Assessment & Plan (05/31/2024 4:41 PM CLIENT SERVICES ACCOUNT MANAGER): Chronic, at goal of less than 7%. Last A1c from December was 6.4. No acute symptoms or findings on exam. Refilled metformin as prescribed. Continue heart healthy diet and exercise. Keep repeat diabetic labs before follow in August. Assessment & Plan (04/20/2024 9:20 AM CLIENT SERVICES ACCOUNT MANAGER): Chronic, diagnosed about four years ago, controlled [...] D/C Assessment & Plan (07/17/2023 3:34 PM CLIENT SERVICES ACCOUNT MANAGER): Blood sugars are running higher than he [...] month. Assessment & Plan (04/17/2023 3:10 PM CLIENT SERVICES ACCOUNT MANAGER): Blood sugars at home are generally around [...] 08/10/2022 Assessment & Plan (05/05/2022 10:34 PM CLIENT SERVICES ACCOUNT MANAGER): He is on Jardiance and metformin. He had his eye exam at [facility]. We will get that report. Follow-up [...] 07/28/2021 Assessment & Plan (03/29/2021 4:12 PM CLIENT SERVICES ACCOUNT MANAGER): He is on Jardiance and metformin. Morning [...] the hospital to schedule him with a clinical systems educator. He is on metformin 500 mg twice [...] 09/05/2020 Assessment & Plan (06/05/2020 1:11 PM CLIENT SERVICES ACCOUNT MANAGER): Fasting blood sugar was 256. He does [...] Wills type with low-grade dysplasia, Dr. Shukla [facility]. Assessment & Plan (03/29/2021 4:17 PM CLIENT SERVICES ACCOUNT MANAGER): He has a history of severe esophagitis [...] time. Assessment & Plan (06/01/2020 2:19 PM CLIENT SERVICES ACCOUNT MANAGER): He will keep his follow ups with Dr. Shukla. He has occasional mild difficulty swallowing, but nothing severe or progressive. He is also overdue for a colonoscopy and will discuss this with Dr. Shukla. Assessment & Plan (01/30/2020 11:40 AM CDT): He sees Dr. Shukla at [facility] for regular follow ups. Last EGD was April 2019 with low-grade dysplasia. He continues on a PPI. Functional diarrhea 11/10/2018 Assessment & Plan (06/10/2024 8:44 PM CLIENT SERVICES ACCOUNT MANAGER): Acute worse in the last 4 weeks. [...] & Plan (11/25/2024 2:53 PM CDT): See [facility] HPI/AP. Assessment & Plan (06/10/2024 8:42 PM CLIENT SERVICES ACCOUNT MANAGER): Acute, URI symptoms for 2 weeks. S/p [...] symptoms. Assessment & Plan (04/15/2024 3:26 PM CLIENT SERVICES ACCOUNT MANAGER): Chronic, present for more than five years, controlled on fluticasone nasal spray. Continue same. Fatty liver 01/01/2018 Overview (09/06/2019): [facility] at [facility] for elevated LFTs: 1. Fatty infiltration of the liver incidentally noted. 2. No discrete hepatic mass is seen. Basal cell carcinoma 06/20/2017 Cancer Staging:Clinical: Unsigned Overview (01/15/2024): Superficially invasive, margins free of cancer, 06/20/2017, Dr. Jaylen Lau, [facility]. BASAL CELL CARCINOMA, 11/15/2020, left jew, Sabrina Wesley, [place], plastic surgery, [facility]. Extends to margins of resection. Surgery, Dr. Solorzano, 05/09/2021: Basal cell carcinoma, completely excised. Assessment & Plan (09/26/2019 10:42 AM CDT): He has had at least one basal cell cancer removed from his face by Dr. Lau at [facility]. There is a small scab over the anterior portion of a left jew seborrheic keratosis. This is probably due to [...] 05/13 Assessment & Plan (07/17/2023 3:27 PM CLIENT SERVICES ACCOUNT MANAGER): He has a little trouble initiating voiding [...] Flomax. Assessment & Plan (04/18/2022 3:36 PM CLIENT SERVICES ACCOUNT MANAGER): He denies any new urinary symptoms of [...] clinically. Assessment & Plan (05/30/2019 9:47 AM CLIENT SERVICES ACCOUNT MANAGER): He needed a refill of Flomax which [...] gout during his spring training trip to [place], [place] in July. It affected his right [...] was referred to the GI service at [facility] by Dr. Richards, but apparently never went. [...] 1:40. Assessment & Plan (06/26/2018 3:38 PM CLIENT SERVICES ACCOUNT MANAGER): He has had a mild chronic elevation [...] care. Assessment & Plan (05/31/2024 4:39 PM CLIENT SERVICES ACCOUNT MANAGER): Chronic, uncontrolled. See HPI for details. No PHQ or SAVANNAH screening was done today. We will increase venlafaxine to 225 mg daily. Refill trazodone 150-200 mg nightly. Keep follow in 3 months as scheduled. Assessment & Plan (04/20/2024 9:18 AM CLIENT SERVICES ACCOUNT MANAGER): Chronic, present for many years. Depression is pretty well controlled on venlafaxine 150 mg daily, but anxiety he is uncontrolled, likely related to all of his recent medical problems and procedures. He would like to go on Xanax, but he is on opiates for chronic pain so I asked him to discuss benzodiazepine treatment with his spray painter helper, Dr. Xiao, who he sees tomorrow. Assessment & Plan (07/17/2023 3:31 PM CLIENT SERVICES ACCOUNT MANAGER): His mood seems to be holding pretty well on Effexor 150 mg daily. He also takes trazodone to help him sleep at night. Continue same. Assessment & Plan (08/15/2022 3:44 PM CDT): His mood seems good. He is going with his partner on a seven day [employer] cruise in about one month. We discussed [...] same. Assessment & Plan (06/05/2020 1:15 PM CLIENT SERVICES ACCOUNT MANAGER): He says he is good with his [...] venlafaxine. Assessment & Plan (05/19/2019 12:49 PM CLIENT SERVICES ACCOUNT MANAGER): He seems to be doing well on [...] same. Assessment & Plan (06/17/2018 12:26 PM CLIENT SERVICES ACCOUNT MANAGER): He denies any mood issues. He denies [...] interventions. Assessment & Plan (04/16/2017 12:23 PM CLIENT SERVICES ACCOUNT MANAGER): He seems to be doing fairly well [...] on EGD 04/2019. >>OVERVIEW FOR ESOPHAGEAL CANCER ([facility]/HCC) (HCC) WRITTEN ON 01/15/2024 5:31 AM BY GEORGIANA RODRIGUEZ MD Status post resection of involved segment (Barretts with dysplasia). Final surgical pathology negative for esophageal cancer. 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 Assessment [...] ups with surgery and other specialists at [facility]. 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 Assessment & Plan (08/19/2021 2:04 PM CDT): He has not had regular follow-up for this condition, nor has he scheduled his colonoscopy which is overdue. We have discussed this many times. He says the GI nurse at [facility] called and left a message for him [...] situation. Assessment & Plan (05/19/2019 12:39 PM CLIENT SERVICES ACCOUNT MANAGER): He is following up with Dr. Shukla. He had a radiofrequency ablation recently and a follow-up endoscopy is planned for about a month from now. He continues on high- dose PPI. Assessment & Plan (01/13/2019 11:49 AM CDT): He had a radiofrequency ablation at [facility] in mid February. He still has a [...] high-grade dysplasia. He has been referred to [facility], Dr. Shukla, for further management. Currently he says reflux type symptoms are reasonably well controlled except at night. He has no dysphagia. Continue Protonix, taken twice a day. Assessment & Plan (07/10/2018 10:09 PM CLIENT SERVICES ACCOUNT MANAGER): Patient had long segment Wills's with persistent low grade dysplasia, and now a focus of high grade dysplasia. Patient will be referred for [facility] for further evaluation, EUS and possible ablation therapy. Assessment & Plan (06/17/2018 12:22 PM CLIENT SERVICES ACCOUNT MANAGER): He had a follow-up endoscopy recently. He [...] swallowing. Assessment & Plan (04/16/2017 12:27 PM CLIENT SERVICES ACCOUNT MANAGER): He is last colonoscopy was towards the [...] pneumonias. Assessment & Plan (04/20/2024 9:13 AM CLIENT SERVICES ACCOUNT MANAGER): Chronic, present for more than 20 years, currently on dual acid suppression with famotidine and pantoprazole as prescribed by his specialists at [facility]. He had a partial esophagectomy with gastric [...] 12/04/2021 Assessment & Plan (04/15/2021 3:16 PM CLIENT SERVICES ACCOUNT MANAGER): He was taking Protonix but he could not get refills from the GI office, so he started taking [id number] omeprazole instead. We made the correction in his medication record. Assessment & Plan (07/10/2018 10:07 PM CLIENT SERVICES ACCOUNT MANAGER): Symptoms controled with Protonix. Assessment & Plan [...] needed. Assessment & Plan (07/17/2023 3:30 PM CLIENT SERVICES ACCOUNT MANAGER): He is having more headaches than previously. [...] symptoms. Assessment & Plan (04/05/2022 7:50 AM CLIENT SERVICES ACCOUNT MANAGER): He has a history of migraine headaches [...] refill. Assessment & Plan (06/17/2018 12:24 PM CLIENT SERVICES ACCOUNT MANAGER): He needed a refill of acyclovir for [...] & Plan (11/24/2024 7:37 PM CDT): See [facility] HPI/AP. Assessment & Plan (08/12/2024 5:51 AM CDT): Chronic, present for 20-30 years, recommend continuing highly active anti- retroviral therapy with tenofovir 300 mg daily, dolutegravir 50 mg daily, and abacavir 600 mg daily. Assessment & Plan (04/20/2024 9:15 AM CLIENT SERVICES ACCOUNT MANAGER): Chronic, present for decades, uncontrolled in that [...] po Assessment & Plan (07/17/2023 3:29 PM CLIENT SERVICES ACCOUNT MANAGER): Viral load is < 20, detected. CD4 count he has in a good range. We will see him back in six months for HIV care. Assessment & Plan (04/17/2023 3:07 PM CLIENT SERVICES ACCOUNT MANAGER): Viral load is undetected and CD4 count [...] 1,131 Assessment & Plan (04/18/2022 3:39 PM CLIENT SERVICES ACCOUNT MANAGER): He went to get his labs drawn, [...] months. Assessment & Plan (04/15/2021 3:18 PM CLIENT SERVICES ACCOUNT MANAGER): HIV labs about 6 weeks ago were [...] months. Assessment & Plan (06/01/2020 2:17 PM CLIENT SERVICES ACCOUNT MANAGER): He is doing well on current therapy. [...] months. Assessment & Plan (05/19/2019 12:46 PM CLIENT SERVICES ACCOUNT MANAGER): He is doing well on current therapy. [...] months. Assessment & Plan (07/10/2018 10:07 PM CLIENT SERVICES ACCOUNT MANAGER): Patient follows with ID regularly. Assessment & Plan (06/17/2018 12:24 PM CLIENT SERVICES ACCOUNT MANAGER): He is doing very well on current [...] appointment. Assessment & Plan (04/16/2017 12:25 PM CLIENT SERVICES ACCOUNT MANAGER): He is on a new combination due [...] Richards. Assessment & Plan (04/17/2023 3:08 PM CLIENT SERVICES ACCOUNT MANAGER): He takes either Pepto-Bismol or Lomotil for occasional bowel problems. Recently he is not had to use either. Assessment & Plan (03/21/2022 3:32 PM CLIENT SERVICES ACCOUNT MANAGER): He has a long history of intermittent loose to watery stools which responds well to Lomotil. His current prescription is over 4 years old so he requested a new one which we sent in. Assessment & Plan (04/16/2017 12:25 PM CLIENT SERVICES ACCOUNT MANAGER): He needed a refill on the Lomotil [...] CDT): See [facility] HPI/AP. Assessment & Plan (04/15/2024 3:29 PM CLIENT SERVICES ACCOUNT MANAGER): Chronic, uncontrolled, present for decades, although he quit smoking cigarettes and now vapes. We encouraged cessation. Assessment & Plan (07/17/2023 3:28 PM CLIENT SERVICES ACCOUNT MANAGER): He is currently vaping. Technically he is [...] esophagus. Assessment & Plan (03/29/2021 4:14 PM CLIENT SERVICES ACCOUNT MANAGER): He quit smoking about six or seven years ago a total of 40 pack years. We discussed the option of low-dose CT scanning of the chest to screen for lung cancer, but he does not want to pursue any screening at this time. He has no new pulmonary symptoms. Assessment & Plan (06/01/2020 2:18 PM CLIENT SERVICES ACCOUNT MANAGER): He quit smoking six or seven years [...] history. Assessment & Plan (05/30/2019 9:51 AM CLIENT SERVICES ACCOUNT MANAGER): He smoked for about 40 years, quit [...] he decides to proceed with the examination. Resolved Problems Problem Noted Date Diagnosed Date [...] times recently starting with a week in [place] when he was on a cruise. They [...] 05/31/2024 Assessment & Plan (07/17/2023 3:32 PM CLIENT SERVICES ACCOUNT MANAGER): He uses nystatin swish and swallow as needed for thrush. We corrected the record to reflect this use pattern. COVID-19 01/23/2022 04/14/2022 Overview (04/14/2022): Covid tests in record are negative. Possible + home test? Assessment & Plan (03/21/2022 3:32 PM CLIENT SERVICES ACCOUNT MANAGER): His current respiratory symptoms could be a consequence of recent COVID infection with some chronic lung manifestations. Evaluation is pending as described. Colon cancer screening 01/09/202204/14 Overview (04/14/2022): Added automatically from request for surgery [id number], colonoscopy on 02/28/2022: Five sessile tubular adenomas were found in the transverse colon. Eight sessile tubular adenomas were found in the ascending colon. Bisi Delarosa. Aspiration pneumonia 12/23/2021 022 Overview (03/20/2022): See hospital records. Assessment & Plan (04/05/2022 7:47 AM CLIENT SERVICES ACCOUNT MANAGER): He is still coughing, so we ordered [...] resolve. Assessment & Plan (05/05/2022 10:33 PM CLIENT SERVICES ACCOUNT MANAGER): For the past several months, starting before [...] recorder. Assessment & Plan (05/14/2021 2:30 PM CLIENT SERVICES ACCOUNT MANAGER): He has had three episodes of syncope [...] improvement. Assessment & Plan (04/17/2023 3:07 PM CLIENT SERVICES ACCOUNT MANAGER): He needed a refill of Breo Ellipta [...] screening. Assessment & Plan (05/05/2022 10:32 PM CLIENT SERVICES ACCOUNT MANAGER): He is experiencing a persistent cough. In [...] controlled. Assessment & Plan (04/05/2022 7:49 AM CLIENT SERVICES ACCOUNT MANAGER): He has a history of recurring coughs. [...] keep. Assessment & Plan (05/03/2021 3:47 PM CLIENT SERVICES ACCOUNT MANAGER): He has had a recurrence of a [...] versus a small hernia containing fat. 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 Assessment & Plan (06/01/2020 2:12 PM CLIENT SERVICES ACCOUNT MANAGER): About one year ago, he noticed a [...] recommended. Assessment & Plan (06/01/2020 2:18 PM CLIENT SERVICES ACCOUNT MANAGER): He has a red bumpy itchy rash over his lower abdomen and lower back. It looks like a dry skin dermatitis, probably from the winter air. I recommend a moisturizing cream. Skin lesion of face 09/11/2019 07/30/19 Overview (02/11/2021): Left anterior jew. Probably basal cell cancer. Excised 11/15/2020, left jew, BASAL CELL CARCINOMA, Sabrina Wesley, [facility], plastic surgery. Assessment & Plan (10/15/2020 3:37 PM CDT): He has a small plaque on the anterior left jew which has not healed. It measures slightly less than 1 cm in size and has a crusted eschar like appearance. He has had basal cell cancers removed in the past by Dr. Lau at [facility], but he wants to see Dr. Shah this time, so we will put in a referral. History of Wills's esophagus 07/03/2019 09/15/2019 Overview (09/15/2019): Added automatically from request for surgery [id number], see endoscopy reports. Hypercalcemia 05/14/2019 09/15/2019 Overview (09/15/2019): Calcium 10.5, but corrected calcium 10.1, and a follow-up normal. Assessment & Plan (05/19/2019 12:47 PM CLIENT SERVICES ACCOUNT MANAGER): On his recent labs, there was a mild elevation of calcium but corrected calcium for albumin level is technically in the normal range, albeit upper level of normal. We will check again in four months, and if there are any trends, consider additional workup. Nonhealing skin ulcer 03/13/20192022 Overview (08/14/2022): Left anterior jew, polygonal ulcer with eschar, keeps falling off and recurring x 18 months, likely a basal cell cancer. WIDE LOCAL EXCISION BASAL CELL CARCINOMA -LEFT SYNAGOGUE WITH FROZEN SECTION, SUPERICIAL TEMPORAL ARTERY DEPARTURE CLERK FASCIOCUTANEOUS V-Y ADVANCEMENT FLAP, 05/09/2021, Dr. Solorzano. Assessment & Plan (08/03/2021 3:32 PM CDT): A left anterior jew ulcer was resected. It was basal cell cancer. He healed well. He will keep his follow ups with Plastic surgery. Assessment & Plan (03/29/2021 4:12 PM CLIENT SERVICES ACCOUNT MANAGER): He has a chronic ulcer of the left anterior jew which is scheduled for removal towards the end of this month. Assessment & Plan (06/01/2020 2:15 PM CLIENT SERVICES ACCOUNT MANAGER): For the last 1-1.5 years, he has had an ulcerated area on the left anterior jew that scabs up. The scab falls off when he showers, but it never completely heals. He had a basal cell cancer removed from the right nasal ala about three years ago. This could be a similar problem so we will refer him to Dr. Shah. Wills's esophagus with low grade dysplasia 9 01/18/2019 Overview (10/03/2018): Added automatically from request for surgery [id number] Wills's esophagus with dysplasia 06/11/2018 06/17/2018 Overview (06/11/2018): Added automatically from request for surgery [id number] Borderline diabetes 12/23/2017 01/27/20 20 Overview (01/27/2020): Transitioned to diabetes, January 2020, [...] months. Assessment & Plan (05/19/2019 12:40 PM CLIENT SERVICES ACCOUNT MANAGER): Blood sugars have been somewhat borderline for [...] should return early or go see his oil field technician for further evaluation and treatment. Foot-drop 04/14/2013 12/31/2017 Overview (12/31/2017): Right foot drop, resolved with surgery at [facility] to unpinch a nerve. Ankle pain 04/14/2013 [...] time. Assessment & Plan (04/16/2017 12:29 PM CLIENT SERVICES ACCOUNT MANAGER): For the past couple of months or [...] in the joint. He has been taking [id number] ibuprofen 600 mg 3 times a day [...] him. Assessment & Plan (06/01/2020 2:15 PM CLIENT SERVICES ACCOUNT MANAGER): Earlier this year he said that trazodone [...] topiramate. Similar diagnosis present on problem list. Encounters Date Type Department Care Team Description 03/23/2025 Telephone [facility] [address] [place] [address] Georgiana Rodriguez MD Injections 03/15/2025 1:00 PM CLIENT SERVICES ACCOUNT MANAGER [facility] Ot[facility] [address] [place] [phone] Raina Rene SLP Vocal fold paralysis, unilateral 03/15/2025 1:00 PM CLIENT SERVICES ACCOUNT MANAGER Office Visit [facility] [address] [place] [phone] Nir Hastings MD Unilateral complete paralysis of vocal cord (Primary Dx) 03/04/2025 Telephone [facility] Gastroenterology [facility] [place] [address] [place] [phone] Matilde Bolaños RMA 03/03/2025 ACO Outreach [facility] Accountable Care Organization [address] [place] [phone] Matilde Mena RN 03/02/[address] [facility] Endoscopy [id number] [address] [address] Xochitl Nails MD History of colon polyps (Primary Dx) 03/02/2025 Telephone [facility] Gastroenterology [address] [place] [address] [place] [phone] Matilde Bolaños RMA Colonoscopy (GI Pre Procedure Assessment: The colonoscopy is scheduled on 06-02-25 @ 11:[address] Nails at [facility]./Nulyteyvonne 2 Day Prep Instructions were sent through [employer] today to the patient.) 02/24/2025 2:00 PM CDT Office Visit [facility] [employer] [address] [place] [phone] Georgiana Rodriguez MD Medicare annual wellness visit, subsequent (Primary Dx); Asymptomatic HIV infection, with no history of HIV-related illness (HCC); Type 2 diabetes mellitus without complication, without long-term current use of insulin (HCC); Hypertension associated with type 2 diabetes mellitus (HCC); Hyperlipidemia associated with type 2 diabetes mellitus (HCC); Atrial flutter, unspecified type (HCC); Chronic rhinitis; Urinary hesitancy; Screening for osteoporosis; At risk for osteoporosis; Thrush, oral; Other chronic pain; Persistent mood disorder 02/22/2025 Results Follow-Up [facility] [employer] [address] [place] [phone] Georgiana Rodriguez MD CBC with auto differential, Comprehensive metabolic panel, HIV-1 RNA PCR, quantitative Blood, Additional followed-up results: 9 02/19/2025 3:35 PM CDT Lab [address] [phone] Asymptomatic HIV infection, with no history of HIV-related illness (HCC); Need for hepatitis B screening test; Prostate cancer screening; History of hepatitis A; Type 2 diabetes mellitus without complication, without long-term current use of insulin (HCC) 2025 Telephone [facility] [address] [place] [address] Georgiana Rodriguez MD 02/11/2025 [facility] [address] [address] Araceli Bolaños MA 02/09/2025 [facility] Post Discharge Follow up phone call [facility] [address] [place] [address] Vicki Stinson 02/08/2025 [facility] [address] [address] Araceli Bolaños MA 02/05/2025 [facility] [address] [address] Araceli Bolaños MA 02/02/2025 6:13 PM CDT - 02/04/2025 3:08 PM CDT Hospital Encounter [facility] [address] [place] [address] Guanako Schofield MD Nations, Nir Prasad, DO Pneumonia of both lungs due to infectious organism, unspecified part of lung (Primary Dx); Mental status change resolved; Currently asymptomatic HIV infection, with history of HIV-related illness (HCC) Discharge Disposition: Discharge to home or self care 02/02/2025 Telephone [facility] [address] [place] [phone] Georgiana Rodriguez MD 01/18/2025 Telephone [facility] [address] [place] [address] Georgiana Rodriguez MD from Last 3 Months Immunizations Immunization Administration Dates Next Due COVID-19 mRNA (Chatosity) 0.3 m L (30 mcg) vaccine (12 years and up) 02/13/2023 Flucelvax Influenza Quad 04/23/2019,04/15/2017 Hep A, Adult 03/29/2025 Influenza, Quadrivalent, Judy l Culture-based MDCK, Preservative Free, Antibiotic Free, Intramuscular 04/06/2022,02/15/2020,04/23/2019,04/16 Influenza, Quadrivalent, Spl it, Intramuscular 02/28/2016 Influenza, Quadrivalent, Spl it, Preservative Free, Intramuscular 02/13/2023,03/29/2021,03/12/2018 Influenza, Trivalent, Adjuva nted, Intramuscular 02/09/2025 Influenza, Trivalent, IM (MDV) 02/25/2014,2012,03/05/2012 Influenza, Trivalent, Preser vative Free, Intramuscular 01/15/2024,02/27/2015 Influenza, Unspecified 03/13/2018 MMR 09/30/2018 Pfizer SARS-CoV-2 Monovalent Vaccination (12+ Yrs) PURPLE 08/24/2020,07/27/2020 Pneumococcal Conjugate PCV 13 05/17/2015 Pneumococcal Conjugate Pcv21 03/29/2025 Pneumococcal Polysaccharide PPV23 04/18/2022 RSV Vaccine, Pref, Recombina nt, Subunit, Adjuvanted, PF, IM (Arexvy) 04/21/2023 Tdap 01/06/2018,06/13/2017,06/10/2016 ZOSTER Recombinant 01/23/2024,11/10/2023 Surgical History Surgery Date Site/Laterality Comments TONSILLECTOMY 05/13/1979 - 05/12/1980 COLONOSCOPY 04/01/2015 Incomplete:Sharply angulated colon, small polyps not removed, referred to tertiary care, Dr. Richards, [facility]. PERONEAL NERVE DECOMPRESSION 05/13/2013 - 05/12/2014 Right SKIN LESION EXCISION 01/30/2021 Left middle finger, fibromatosis BASAL CELL CARCINOMA EXCISION 05/09/2021 Left jew HM COLONOSCOPY 02/28/2022 N/A Five sessile tubular adenomas transverse colon.Eight sessile tubular adenomas ascending colon. Bisi Delarosa. ESOPHAGOGASTRODUODENOSCOPY 02/28/2022 N/A Wills's stage C13-M13 per [place] criteria, nodule biopsied, No dysplasia on path. Wills's esophagitis treated with radiofrequency ablation, Bsii Delarosa. BRONCHOSCOPY 10/30/2022 [facility] ESOPHAGOGASTRODUODENOSCOPY 11/28/2022 N/A Erythematous mucosa in the prepyloric region, biopsied (Glandular/columnar mucosa with ulceration, mixed acute and chronic inflammation, and intestinal metaplasia). HH 3 cm, long segment of Wills's with narrowing, biopsied, dilated, Dr. Richards, [facility]. ESOPHAGOGASTRODUODENOSCOPY 12/26/2022 N/A Esophageal mucosal changes classified as Wills's, stage C11-M11 per [place] criteria. Treated with RFA. Small hiatal hernia, normal duodenal. Dr. Xochitl Nails, [facility] CARDIAC CATHETERIZATION 01/21/2023 Left No significant CAD, Dr. Mast [facility]. COLONOSCOPY W/ POLYPECTOMY 05/22/2023 N/A Multiple polyps removed, [facility], Dr. Katiana Nails. Fragments of tubular and tubulovillous adenoma(s). ESOPHAGOGASTRODUODENOSCOPY 05/22/2023 N/A Long segment of Wills's with nodularity, biopsied, 2 cm HH, Dr. Katiana Nails, [facility]. Wills esophagus with low-grade dysplasia and focal high-grade dysplasia, and rare glands suspicious for intramucosal adenocarcinoma. ESOPHAGOGASTRODUODENOSCOPY 07/03/2023 N/A Esophageal nodules, one resected (esophageal squamocolumnar junctional mucosa and submucosa with evidence of low-grade glandular dysplasia no high grade dysplasia or malignancy), Wills's esophagus, Xochitl Nails M.D. ESOPHAGECTOMY 10/22/2023 N/A Extensive high-grade dysplasia in a background of intestinal metaplasia with no evidence of invasive adenocarcinoma, margins negative, Dr. Nimesh Melvin. ESOPHAGOGASTRODUODENOSCOPY 04/02/2024 N/A FIBEROPTIC ESOPHAGOSCOPY BALLOON DILATION<30MM. Diagnostic flexible esophagogastroscopy, pyloric dilation and anastomotic dilation. Dr. Nimesh Melvin, [facility]. ESOPHAGOGASTRODUODENOSCOPY 08/18/2024 N/A LA Grade A esophagitis with no bleeding. A large amount of food (residue) in the stomach. No specimens collected. ESOPHAGOGASTRODUODENOSCOPY 08/20/2024 N/A Mild gastropathy. Mild narrowing and pyloric stenosis. Dilated with the 18 mm balloon. Erythema at the gastroesophageal junction. Biopsied. BASAL CELL CARCINOMA EXCISION Left shoulder, over 5 years ago THYROPLASTY 10/07/2024 ENT Service, [facility]. STEROID INJECTION KNEE 10/26/2024 Right Pain management, Ramone Hayes APN. LARYNGOSCOPY 07/27/2024 Injection medialization laryngoplasty with indirect laryngoscopy, left, Nir Hastings MD Medical History Medical History Date Comments Gastroesophageal reflux disease HIV (human immunodeficiency virus infection) ([facility]) 1997 Depression Diastolic dysfunction 01/03/2017 Migraine headaches 11/11/1999 Controlled wi th topiramate. History of tobacco use Alcohol abuse Past continuous, current intermittent use. Wills's esophagus with low grade dysplasia 09/25/2018 Chicken pox 1967 Hypercalcemia 05/14/2019 Borderline diabetes 12/23/2017 Transitioned to diabetes, January 2020 Pneumonia 12/2021 Acute hypoxemic respiratory failure (HCC) 12/23/2021 Due to aspiration pneumonia, see hospital records. Hospital discharge follow-up 01/02/2022 Fol lowing pneumonia and sepsis, saw CHRISTIE Gomez. Severe sepsis 12/23/2021 Due to pneumonia , possible aspiration, see hospital records. Colon cancer screening 01/09/2022 Added aut omatically from request for surgery [id number], colonoscopy on 02/28/2022: Five sessile tubular adenomas were found in the transverse colon. Eight sessile tubular adenomas were found in the ascending colon. Dr. Xochitl Nails, [facility]. Aspiration pneumonia ([facility]) 12/23/2021 See h ospital records. Closed nondisplaced fracture of distal phalanx of right great toe 04/27/2021 Details lacking. Covid-19 01/23/[facility]. [facility] test? Nonhealing skin ulcer (HCC) 03/13/2019 Left anterior jew, polygonal ulcer with eschar, keeps falling off and recurring x 18 months, likely a basal cell cancer. WIDE LOCAL EXCISION BASAL CELL CARCINOMA -LEFT SYNAGOGUE WITH FROZEN SECTION, SUPERICIAL TEMPORAL ARTERY DEPARTURE CLERK FASCIOCUTANEOUS V-Y ADVANCEMENT FLAP, 05/09/2021, Dr. Solorzano. Acute lung injury associated with vaping 11/06/2022 Speculative cause of diffuse lung infiltrates Acute respiratory failure wi th hypoxia (HCC) 10/25/2022 Several admissions in quick succession with eventual resolution, no definite etiology ever identified. Hypotension, unspecified hyp otension type 10/17/2022 He was having trouble with l ow blood pressures well at the hospital but this seems to be resolved. Hypoxia 10/25/2022 See hospital rec ords, resolved at 01/11/2023 office follow-up. Diabetes mellitus Liver disease COPD (chronic obstructive pu lmonary disease) Cirrhosis (HCC) Colon polyp Type 2 diabetes mellitus Wills esophagus Dysphagia Hypertension Coronary artery disease Hyperlipidemia Acute respiratory failure wi th hypoxemia (HCC) 02/19/2023 See hospital records, [facility]. Acute respiratory failure 10/25/2022 Severa l admissions in quick succession with eventual resolution, no definite etiology ever identified. Type 2 diabetes mellitus wit hout complication 09/04/2019 Acute respiratory failure re quiring reintubation (HCC) 10/2023 Notable for wheezing in PACU PaCO2 to 80s, no relief with duo neb. Reintubated in PACU. - Intubated 7.5 tube Benign prostatic hyperplasia with nocturia 05/13/2017 Voice disorder 11/03 Ankle pain 04/14/[address] Andria Thornton. Injury of right knee 06/03/2020 Skin lesion of face 09/11/2019 Left anterio r jew. Probably basal cell cancer. Excised 11/15/2020, left jew, BASAL CELL CARCINOMA, Sabrina Wesley, CHRISTIE, plastic surgery. Cough variant asthma 11/23/2020 Cough in Ju ly 2020, resolved with empiric antibiotics, recurred mid April 2021. Crackles in lung bases on exam. Hospitalized for aspiration pneumonia, December 2021. Avulsion fracture of distal end of fibula 04/27/2021 Syncope 03/29/2021 Three episodes s antonio about the middle of February 2021, gets shaky, then passes out. No sooner than he hits the floor than he recovers. He has not checked blood sugars. Blood pressure has been normal. Acute respiratory failure wi th hypoxia and hypercarbia (HCC) 02/19/2023 See hospital records, [facility]. COPD exacerbation ([facility]) 07/11/2024 Hospital ized, [facility], likely add a degree of aspiration pneumonia. Family History Medical History Relation Name Comments Leukemia Father Details lacking Diabetes Mother Guerrero Diabetes mellit us; Heart failure Mother Guerrero Hypertension Mother Guerrero Hypertension; Migraines Mother Guerrero Migraine; Skin cancer Mother Guerrero Minor stuff Diabetes Mother's Brother Guerrero Family hist ory of Diabetes mellitus; Cancer Other 1 Family history of Cancer; Hypertension Other 2 Family history of Hypertension; Arthritis Other 3 Gout Other 3 Migraines Other 3 Family history of Migraines; Colon cancer Sister Amanda Localized, part ial colectomy. Lung cancer Sister Amanda Lobectomy. Anesthesia problems Neg Hx Relation Name Status Comments Father Mother Yolanda Mother's Brother Yolanda Other 1 Other 2 Other 3 Sister Amanda Social History Tobacco Use Types Packs/Day Years Used Date Smoking Tobacco: Former Cigarettes 1 44 1 2019 Vaping Started: 2022 Passive Smoke Exposure: Past Smokeless Tobacco: Never Tobacco Cessation:Counseling Given: Not Answered Alcohol Use Standard Drinks/Week Comments Yes 0 [...] often do you attend chur ch or mandaeism services? Never 10/28/2024 Do you belong to any clubs o r organizations such as buddhist groups, unions, fraternal or athletic groups, or [...] place to sleep or slept in a correction (including now)? No 03/12/2023 Housing Stability Vital [...] any time in the past 12 m [facility], were you homeless or living in a correction (including now)? No 10/28/2024 Social Connection and Isolation Panel Answer Date Recorded In a typical week, how many times do you talk on the phone with family, friends, or neighbors? More than three times a week 02/04/2025 How often do you get togethe r with friends or relatives? More than three times a week 02/04/2025 How often do you attend chur ch or mandaeism services? Never 02/04/2025 Do you belong to any clubs o r organizations such as buddhist groups, unions, fraternal or athletic groups, or [...] any time in the past 12 m [facility], were you homeless or living in a correction (including now)? No 02/04/2025 [facility] Utilities Answer Date Recorded In the past [...] on file Legal Sex Male 7:11 PM CLIENT SERVICES ACCOUNT MANAGER Gender Identity Male 10/25/2024 9:48 AM CDT Sexual Orientation Mccartney 10/25/2024 9: 48 AM CDT Last Filed Vital Signs Vital Sign Reading Time Taken Comments Blood Pressure 98/58 02/24/2025 2:05 PM CDT Pulse 101 02/24/2025 2:05 PM CDT Temperature 36.8 C (98.2 F) 02/24/2025 2:05 PM CDT Respiratory Rate 16 02/24/2025 2:05 PM CDT Oxygen Saturation 94% 02/24/2025 2:05 PM CDT Inhaled Oxygen Concentration - - Weight 64 kg (141 lb) 02/24/2025 2:05 PM CDT Height 170.2 cm (5' 7.01) 02/24/2025 2:05 PM CD T Body Mass Index 22.08 02/24/2025 2:05 PM CDT Plan of Treatment Upcoming Encounters Date Type Department Care Team (Late st Contact Info) Description 06/02/2025 11:15 AM CLIENT SERVICES ACCOUNT MANAGER Hospital Encounter [facility] Endoscopy [id number] EDI Smith [address] Xochitl Nails MD [address] [place] [address] 06/02/2025 11:15 AM CLIENT SERVICES ACCOUNT MANAGER - 06/02/2025 12:00 PM CLIENT SERVICES ACCOUNT MANAGER Surgery [facility] Endoscopy [id number] EDI [address] [address] Xochitl Nails MD [address] [place] [address] COLONOSCOPY Scheduled Procedures Name Priority Associated Diagnoses Date/Ti me COLONOSCOPY History of colon polyps 06/02/2025 11:15 AM CLIENT SERVICES ACCOUNT MANAGER Health Maintenance Due Date Last Done Comments Dilated Eye Exam 1959 HIV+ Chlamydia and Gonorrhea Screening (Rectal) 1970 HIV+ Chlamydia and Gonorrhea Screening (Throat) 02/17/1972 Colon Cancer Screening-Colonoscopy 05/22/2024 05/22/2023, 02/28/2022, 11/01/2009 Hemoglobin A1C 01/06/2025 01/07/2024, 03/0 10/2023, 01/09/2023, Additional history exists Hepatitis C Screening 01/06/2025 01/07/2024 , 01/09/2023, 12/04/2021, Additional history exists T Spot (quantiferon gold) 01/06/20252023, 01/09/2023, 12/04/2021 Osteoporosis Screening-Bone Density Scan 01/10/2025 01/10/2022 HIV + Chlamydia and Gonorrhe a Screening (Urine) 01/13/2025 01/14/2024 Lung Cancer Screening 03/31/2025 03/31/2024 Lipid Panel 04/08/2025 04/08/2024, 12/12, 12/09/2023, Additional history exists Foot Exam 04/15/2025 04/15/2024, 08/2023, 07/17/2023, Additional history exists Covid-19 Vaccine (9 - Pfizer risk 2024- season) 2025 02/09/2025, 01/23/2024, 02/13/2023, Additional history exists Hepatitis A Vaccines (2 of 2 - Risk 2-dose series) 09/26/2025 03/29/2025 Proteinuria screening Urinalysis (UA) 02/02/2026 02/02/2025, 02/02/2025, 07/16/2024, Additional history exists RPR Screening 02/02/2026 02/02/2025, 12/12, 01/09/2023, Additional history exists Albumin Creatinine Ratio, Urine 02/19/2026 02/19/2025, 01/23/2024, 01/09/2023, Additional history exists Hepatitis B Screening 02/19/2026 02/19/2025 eGFR 02/19/2026 02/19/2025, 01/12, 02/03/2025, Additional history exists Depression Screening 02/24/2026 02/24/2025, 01/15/2024, 03/11/2023, Additional history exists Fall Risk Assessment 02/24/2026 02/24/2025, 02/04/2025, 01/15/2024, Additional history exists Well Visit 65+ 02/24/2026 02/24/2025, 08/2023, 01/11/2023, Additional history exists Prostate Cancer Screening-PSA 02/19/2027, 04/12/2023, 02/07/2021, Additional history exists DTaP/Tdap/Td Vaccine (4 - Td or Tdap) 01/07/2028 01/06/2018, 06/13/2017, 06/10/2016 HLA B 5701 Typing Completed 12/25/2016 Colon Cancer Screening-CT Colonography Discontinued 05/22/2023, 02/28/2022, 11/01/2009 Colon Cancer Screening-DNA Stool Discontinued 05/22/2023, 02/28/2022, 11/01/2009 Colon Cancer Screening-FIT Discontinued 05/22, 02/28/2022, 11/01/2009 Colon Cancer Screening-Sigmoidoscopy Discontinued 05/22/2023, 02/28/2022, 11/01/2009 Zoster Vaccine Completed 01/23/2024, 11/10/2023 G6PD Completed 04/08/2024, 07/09/2023 Abdominal Aortic Aneurysm (A AA) Screen Completed 12/15/2024 Influenza Vaccine Completed 02/09/2025, , 02/13/2023, Additional history exists Pneumococcal vaccine 65+ Completed 025, 04/18/2022, 05/17/2015 Hepatitis B Vaccines Discontinued Procedures Procedure Name Priority Date/Time Associated Diagnosis Comments EGFR Routine 02/19/2025 3:43 PM CDT Asymptomatic HIV infection, with no history of HIV-related illness (HCC) BLOOD MISC TO OSSEO Routine 02/19/2025 3: 43 PM CDT DIFFERENTIAL AUTO Routine 02/19/2025 3:4 3 PM CDT Asymptomatic HIV infection, with no history of HIV-related illness (HCC) ALBUMIN CREATININE RATIO, URINE Routine 02/19/2025 3:43 PM CDT Type 2 diabetes mellitus without complication, without long-term current use of insulin (HCC) PSA SCREEN Routine 02/19/2025 3:43 PM CDT Prostate cancer screening COMPREHENSIVE METABOLIC PANEL Routine 02/19/2025 3:43 PM CDT Asymptomatic HIV infection, with no history of HIV-related illness (HCC) CBC WITH AUTO DIFFERENTIAL Routine 02/19/2025 3:43 PM CDT Asymptomatic HIV infection, with no history of HIV-related illness (HCC) HEPATITIS A ANTIBODY, TOTAL Routine 02/19/2025 3:43 PM CDT History of hepatitis A HEPATITIS B SURFACE ANTIGEN Routine 02/19/2025 3:43 PM CDT Need for hepatitis B screening test HEPATITIS B SURFACE ANTIBODY (IMMUNE STATUS) Routine 02/19/2025 3:43 PM CDT Need for hepatitis B screening test HEPATITIS B CORE ANTIBODY, TOTAL Routine 02/19/2025 3:43 PM CDT Need for hepatitis B screening test HIV-1 RNA, QUANTITATIVE, PCR Routine 02/19/2025 3:43 PM CDT Asymptomatic HIV infection, with no history of HIV-related illness (HCC) POCT GLUCOSE DEVICE Routine 02/04/2025 1 2:07 PM CDT POCT GLUCOSE DEVICE Routine 02/04/2025 8 :09 AM CDT EGFR Routine 02/04/2025 2:45 AM CDT DIFFERENTIAL AUTO Routine 02/04/2025 2:4 5 AM CDT COMPREHENSIVE METABOLIC PANEL Routine 02/04/2025 2:45 AM CDT CBC WITH AUTO DIFFERENTIAL Routine 02/04/2025 2:45 AM CDT POCT GLUCOSE DEVICE Routine 02/04/2025 2 :04 AM CDT POCT GLUCOSE DEVICE Routine 02/03/2025 8 :44 PM CDT POCT GLUCOSE DEVICE Routine 02/03/2025 4 :44 PM CDT MRI BRAIN W WO CONTRAST ED 02/03/2025 2:42 PM CDT TRANSTHORACIC ECHO (TTE) COMPLETE W DOPPLER/CF WO CONTRAST W BUBBLE ED 02/03/2025 11:55 AM CDT POCT GLUCOSE DEVICE Routine 02/03/2025 1 1:49 AM CDT POCT GLUCOSE DEVICE Routine 02/03/2025 8 :01 AM CDT EGFR Routine 02/03/2025 5:03 AM CDT DIFFERENTIAL AUTO Routine 02/03/2025 5:0 3 AM CDT COMPREHENSIVE METABOLIC PANEL Routine 02/03/2025 5:03 AM CDT CBC WITH AUTO DIFFERENTIAL Routine 02/03/2025 5:03 AM CDT PROCALCITONIN Routine 02/03/2025 5:03 AM CDT LEGIONELLA ANTIGEN, URINE Routine 02/03/2025 4:13 AM CDT STREP PNEUMONIAE AG, URINE Routine 02/03/2025 4:13 AM CDT MRSA ONLY (STAPHYLOCOCCUS AUREUS) PCR Routine 02/03/2025 4:13 AM CDT POCT GLUCOSE DEVICE Routine 02/03/2025 2 :13 AM CDT SEPSIS LACTATE WITH REFLEX Timed 02/02/2025 11:19 PM CDT URINALYSIS, MICROSCOPIC ONLY STAT 02/02/2025 11:16 PM CDT URINALYSIS AND REFLEX TO MICROSCOPIC STAT 02/02/2025 11:16 PM CDT TROPONIN T HIGH-SENSITIVITY 6-HOUR Timed 02/02/2025 10:02 PM CDT POCT GLUCOSE DEVICE Routine 02/02/2025 8 :23 PM CDT SEPSIS LACTATE WITH REFLEX Timed 02/02/2025 8:00 PM CDT TROPONIN T HIGH-SENSITIVITY 4-HR Timed 02/02/2025 8:00 PM CDT BLOOD CULTURE STAT 02/02/2025 8:00 PM CDT BLOOD CULTURE STAT 02/02/2025 8:00 PM CDT CTA HEAD NECK W WO CONTRAST ED 02/02/2025 4:36 PM CDT XR CHEST 1 VIEW ED 02/02/2025 4:32 PM CDT IRVING QUALITATIVE WITH REFLEX TO IRVING QUANTITATIVE STAT 02/02/2025 3:42 PM CDT PRO B-TYPE NATRIURETIC PEPTIDE STAT 02/02/2025 3:42 PM CDT TROPONIN T HIGH-SENSITIVITY SERIES (BASELINE, 2HR, 4HR, 6HR) STAT 02/02/2025 3:42 PM CDT CRP (ACUTE PHASE) STAT 02/02/2025 3:4 2 PM CDT ERYTHROCYTE SEDIMENTATION RATE STAT 02/02/2025 3:42 PM CDT SEPSIS LACTATE WITH REFLEX STAT 02/02/2025 3:42 PM CDT RPR STAT 02/02/2025 3:42 PM CDT ECG 12-LEAD Routine 02/02/2025 3:38 PM CDT EGFR STAT 02/02/2025 3:26 PM CDT APTT STAT 02/02/2025 3:26 PM CDT PROTIME-INR STAT 02/02/2025 3:26 PM CDT DIFFERENTIAL AUTO STAT 02/02/2025 3:2 6 PM CDT COMPREHENSIVE METABOLIC PANEL STAT 02/02/2025 3:26 PM CDT CBC WITH AUTO DIFFERENTIAL STAT 02/02/2025 3:26 PM CDT US ABDOMINAL AORTIC ANEURYSM SCREENING Schedule Routine, Read Routine (OP Routine) 12/15/2024 10:54 AM CDT Screening for AAA (aortic abdominal aneurysm) LIPID PANEL Routine 04/08/2024 1:57 PM CLIENT SERVICES ACCOUNT MANAGER Medicare annual wellness visit, subsequent Asymptomatic HIV infection, with no history of HIV-related illness (HCC) GLUCOSE 6 PHOSPHATE DEHYDROGENASE, QUANTITATIVE Routine 04/08/2024 1:57 PM CLIENT SERVICES ACCOUNT MANAGER HEPATITIS C ANTIBODY Routine 01/07/2024 1:54 PM CDT Asymptomatic HIV infection, with no history of HIV-related illness (HCC) HEMOGLOBIN A1C Routine 01/07/2024 1:54 PM CDT Asymptomatic HIV infection, with no history of HIV-related illness (HCC) Type 2 diabetes mellitus without complication, without long-term current use of insulin (HCC) TB TEST, QUANTIFERON GOLD Routine 01/07/2024 1:54 PM CDT Asymptomatic HIV infection, with no history of HIV-related illness (HCC) COLONOSCOPY 05/22/2023 9:25 AM CLIENT SERVICES ACCOUNT MANAGER DEXA AXIAL SKELETON BONE DENSITY 1 OR MORE SITES Schedule Routine, Read Routine (OP Routine) 01/10/2022 11:43 AM CDT Osteoporosis, unspecified osteoporosis type, unspecified pathological fracture presence HLA-B*5701 TYPING Routine 12/25/2016 12: 25 PM CDT from Last 3 Months or Most Recently Relevant to Health Maintenance Results * (ABNORMAL) BLOOD MISC TO OSSEO (02/19/2025 3:43 PM CDT) Test name, chem TCD4 CD4 T-Cell Count [facility] ref [facility] Misc See Comment(A ) [facility] ([place]) Comment: Test Result Flag Unit RefValue CD4 T-Cell Count CD45 Total Lymph Count 2.15 thou/mcL 0.82-2.84 % CD3 (T Cells) 78 % 58-86 CD3 (T Cells) 1675 cells/mcL 550-2202 % CD4 (T Cells) 36 % 32-64 CD4 (T Cells) 781 cells/mcL 365-1437 % CD8 (T Cells) 40 % 8-40 CD8 (T Cells) 856 H cells/mcL 80-846 4/8 Ratio 0.9 >=0.9 ADDITIONAL INFORMATION This test was developed using an analyte specific reagent. Its performance characteristics were determined by [facility] in a manner consistent with CLIA requirements. This test has not been cleared or approved by the U.S. Food and Drug Administration. Test Performed by: [facility] - [address] [address] Tapper Supervisor: Elissa Damon Ph.D.; CLIA# [id number] Blood 02/19/2025 3:43 PM CDT 02/19/2025 4:15 PM CDT us Georgiana Rodriguez MD LAB BLOOD ORDERABLES Final Re sult [facility] ([place]) 1 [facility] Department [place] [address] [facility] * eGFR (02/19/2025 3:43 PM CDT) eGFR 75 >=60 mL/min/1. 73 m2 Comment: Interpretive Data Reference Interval Normal >/= 90 mL/min/1.73m2 Mildly decreased* 60 - 89 mL/min/1.73m2 Mildly to moderately decreased 45 - 59 mL/min/1.73m2 Moderately to severely decreased 30 - 44 mL/min/1.73m2 Severely decreased 15 - 29 mL/min/1.73m2 Kidney Failure < 15 mL/min/1.73m2 *Relative to young adult level Estimated glomerular filtration rate is determined by the 2020 CKD-EPI equation recommended by the National Kidney Foundation (A Unifying Approach to GFR Estimation: Recommendations of the NKF-ASK Task Force on Reassessing the Inclusion of Race in Diagnosing Kidney Disease, JASN 2020). The CKD-EPI equation should not be used for patients with unstable renal function and has not been validated in children and those over 70. Current interpretive data was last reviewed 2021. Blood 02/19/2025 3:43 PM CDT 02/19/2025 3:50 PM CDT us Georgiana Rodriguez MD LAB BLOOD ORDERABLES Final Re sult [facility] ([place] 1 [facility] Department [place] [address] * Differential, auto (02/19/2025 3:43 PM CDT) Neutrophil abs 2.83 1.50 - 6.50 K/cumm Imm gran abs 0.02 0.00 - 0.10 K/cumm [facility] ([place]) Lymphocyte abs 2.41 0.80 - 3.30 K/cumm [facility]) Monocyte abs 0.44 0.20 - 0.80 K/cumm [facility]) Eosinophil abs 0.22 0.00 - 0.50 K/cumm [facility]) Basophil abs 0.05 0.00 - 0.10 K/cumm [facility]) Neutrophil pct 47.4 % [facility] ([place]) Comment: Interpretive Data Percent cell count reference ranges are not reported, since discordance with absolute values may lead to misinterpretation of CBC data. Current Interpretive Data was last revised on 2017. Imm gran pct 0.3 % [facility] ([place]) Comment: Interpretive Data Percent cell count reference ranges are not reported, since discordance with absolute values may lead to misinterpretation of CBC data. Current Interpretive Data was last revised on 2017. Lymphocyte pct 40.4 % [facility] ([place] Comment: Interpretive Data Percent cell count reference ranges are not reported, since discordance with absolute values may lead to misinterpretation of CBC data. Current Interpretive Data was last revised on 2017. Monocyte pct 7.4 % [facility] ([place]) Comment: Interpretive Data Percent cell count reference ranges are not reported, since discordance with absolute values may lead to misinterpretation of CBC data. Current Interpretive Data was last revised on 2017. Eosinophil pct 3.7 % [facility] ([place] Comment: Interpretive Data Percent cell count reference ranges are not reported, since discordance with absolute values may lead to misinterpretation of CBC data. Current Interpretive Data was last revised on 2017. Basophil pct 0.8 % [facility] ([place]) Comment: Interpretive Data Percent cell count reference ranges are not reported, since discordance with absolute values may lead to misinterpretation of CBC data. Current Interpretive Data was last revised on 2017. Blood 02/19/2025 3:43 PM CDT 02/19/2025 3:50 PM CDT us Georgiana Rodriguez MD LAB BLOOD ORDERABLES Final Re sult [facility] ([place]) 1 [facility] [place] [address] * PSA screen (02/19/2025 3:43 PM CDT) PSA-Total 1.37 <=5.40 ng/mL Comment: Interpretive Data AGE SEX REFERENCE INTERVAL 0 minutes-150 years Female None 0 minutes-49 years Male None 50-59 years Male 0-3.90 60-69 years Male 0-5.40 70-79 years Male 0-6.20 80-150 years Male 0-6.20 The Eric PSA Total assay procedure was used. Results from different manufacturers or methods may not be comparable. Serial testing should be performed using the same method. Current interpretive data last revised 21. Blood 02/19/2025 3:43 PM CDT 02/19/2025 3:50 PM CDT us Georgiana Rodriguez MD LAB BLOOD ORDERABLES Final Re sult [facility] ([place]) 1 [facility] Department [place] [address] * (ABNORMAL) CBC with auto differential (02/19/2025 3:43 PM CDT) WBC 5.97 3.80 - 9.90 K/cumm Hgb 14.4 13.0 - 17.5 g/dL [facility] ([place]) Hct 45.6 38.9 - 50.3 % [facility] Plt 262 150 - 400 K/cumm [facility]) MPV 9.8 9.1 - 12.3 fL [facility] RBC 4.77 4.30 - 5.80 M/cumm [facility]) MCV 95.6 81.3 - 96.4 fL [facility] MCH 30.2 27.1 - 33.3 pg [facility]) MCHC 31.6(L) 32.3 - 35.7 g/dL [facility]) RDW CV 14.3 11.1 - 14.9 % [facility] RDW SD 49.9(H) 35.7 - 48.1 fL [facility]) NRBC abs 0.00 0.00 - 0.01 K/cumm [facility] ([place]) Blood 02/19/2025 3:43 PM CDT 02/19/2025 3:50 PM CDT us Georgiana Rodriguez MD LAB BLOOD ORDERABLES Final Re sult Performing Organization Address City/[facility]/ZIP Co de Phone Number [facility] ([place]) 1 [facility] Department [place] [employer] [place] [address] * Hepatitis A antibody, total Blood (02/19/2025 3:43 PM CDT) Pathologist [facility] Hep A total Nonreactive Nonreactive Comment:Testing performed by : [facility], [address] [place]., [address] Blood 02/19/2025 3:43 PM CDT 02/19/2025 6:30 PM CDT us Georgiana Rodriguez MD LAB MICROBIOLOGY - GENERAL OR DERABLES Final Result Performing Organization Address [facility] Co de Phone Number [facility] ([place]) 1 [facility] [place] [address] * (ABNORMAL) Albumin Creatinine Ratio, Urine (02/19/2025 3:43 PM CDT) [facility] Albumin Ur 18.4 mg/L Comment: Interpretive Data No reference range established. Current interpretive data was last revised 2018. Testing performed by: [address] [address] Creatinine Ur 29.9 mg/dL [facility] ([place]) Comment: Interpretive Data No reference range established. Current interpretive data was last revised 2018. Testing performed by: [address] [address] Albumin Creatinine Ratio, Ur 62(H) 1 - 29 mg/g [facility] ([place]) Comment:Testing performed by : [address] [address] Urine 02/19/2025 3:43 PM CDT 02/19/2025 7:32 PM CDT us Georgiana Rodriguez MD LAB URINE ORDERABLES Final Re sult Performing Organization Address City/[facility]/ZIP Co de Phone Number [facility] ([place]) 1 [facility] Department [place] [address] * (ABNORMAL) Hepatitis B core antibody, total Blood (02/19/2025 3:43 PM CDT) [facility] Hep B core IgG/IgM Reactive( A) Nonreactive Comment:Testing performed by : [facility], [address] [place]., [address] Blood 02/19/2025 3:43 PM CDT 02/19/2025 6:30 PM CDT us Georgiana Rodriguez MD LAB MICROBIOLOGY - GENERAL OR DERABLES Final Result Performing Organization Address City/[facility]/ZIP Co de Phone Number [facility] ([place]) 1 [facility] Department [place] [address] * (ABNORMAL) HIV-1 RNA PCR, quantitative Blood (02/19/2025 3:43 PM CDT) [facility] HIV-1 RNA Detected( A) [facility] Comment: The quantifiable range of this assay is 20 copies/mL to 10,000,000 copies/mL (1.30 log copies/mL to 7.00 log copies/mL). Testing was performed by the [employer] 6800 HIV-1 Test([employer] Testing performed at [facility] Current Interpretive Data was last revised on 2020. Testing performed by: [facility], [address] [place]., [address] HIV-1 RNA, copies/mL 27 copies/mL [facility] ([place]) Comment:Testing performed by : [facility], [address] [place]., [address] HIV-1 RNA, log 1.43 log cps/mL [facility] ([place]) Comment:Testing performed by : [facility], [address] [place]., [address] Blood 02/19/2025 3:43 PM CDT 02/19/2025 7:09 PM CDT Georgiana Rodriguez MD LAB MICROBIOLOGY - GENERAL OR DERABLES Final Result Performing Organization Address [facility] Co de Phone Number [facility] ([place]) 1 [facility] [place] [address] [facility] * Hepatitis B surface antibody (immune status) Blood (02/19/2025 3:43 PM CDT) HBsAb (immune status) Reactive Comment: Interpretive Data Nonreactive: This result is consistent with a lack of immunity to Hepatitis B Virus when used in the setting of routine screening. Equivocal: The immune status of the individual should be further assessed, if appropriate, after consideration of clinical status, risk factors, and additional diagnostic information. Reactive: This result is consistent with immunity to Hepatitis B Virus when used in the setting of routine screening. Current interpretive data was last revised on 19. Testing performed by: [facility], [address] [place] [address]., [id number] HBsAb (immune status) index 42.4 mIUnits/m L [facility] ([place]) Comment:Testing performed by : [facility], [address] [place] [address]., [id number] Blood 02/19/2025 3:43 PM CDT 02/19/2025 7:32 PM CDT Georgiana Rodriguez MD LAB MICROBIOLOGY - GENERAL OR DERABLES Final Result Performing Organization Address City/[facility] Co de Phone Number [facility] ([place]) 1 [facility] [place] [address] * Hepatitis B Surface Antigen Blood (02/19/2025 3:43 PM CDT) HepBsAg Nonreactive Nonreactive Comment:Testing performed by : [address] [address] Blood 02/19/2025 3:43 PM CDT 02/19/2025 7:32 PM CDT us Georgiana Rodriguez MD LAB MICROBIOLOGY - GENERAL OR DERABLES Final Result [facility] ([place]) 1 [facility] Department [place] [address] * (ABNORMAL) Comprehensive metabolic panel (02/19/2025 3:43 PM CDT) Sodium 137 135 - 145 mmol/L Potassium, pl 3.5 3.3 - 4.9 mmol/L [facility]) Chloride 103 97 - 110 mmol/L [facility]) CO2 26 22 - 32 mmol/L [facility]) Anion gap 8 2 - 15 mmol/L [facility]) BUN 7 6 - 25 mg/dL [facility]) Creatinine 1.09 0.80 - 1.30 mg/dL [facility] ([place]) Glucose 226(H) 70 - 199 mg/dL [facility] ([place]) Comment: Interpretive Data Fasting glucose >/= 126 mg/dl is diagnostic for diabetes. Fasting is defined as no caloric intake for at least 8 hours. Fasting glucose between 100 mg/dl to 125 mg/dl is diagnostic of prediabetes. In a patient with classic symptoms of hyperglycemia or hyperglycemic crisis, a random glucose >/= 200 mg/dl is diagnostic for diabetes. In the absence of unequivocal hyperglycemia, results should be confirmed by repeat testing. The classification and Diagnosis of Diabetes Diabetes Care 2021; 46: S19-S40. Current interpretive data was last revised 2022. Calcium 9.0 8.5 - 10.3 mg/dL [facility] ([place]) Bilirubin, total 0.2 0.1 - 1.2 mg/dL [facility] ([place]) Protein, pl 6.6 6.5 - 8.5 g/dL [facility] ([place]) Albumin 4.1 3.5 - 5.0 g/dL [facility] ([place]) Alk phos 85 40 - 130 Units/L [facility] ([place]) ALT 20 7 - 55 Units/L [facility] ([place]) AST 22 10 - 50 Units/L [facility] ([place]) Blood 02/19/2025 3:43 PM CDT 02/19/2025 3:50 PM CDT Georgiana Rodriguez MD LAB BLOOD ORDERABLES Final Re sult Performing Organization Address [facility]/ZIP Co de Phone Number [facility] ([place]) 1 [facility] [place] [address] * POCT glucose (02/04/2025 12:07 PM CDT) Glucose, POC 127 70 - 199 mg/dL Blood 02/04/2025 12:0 7 PM CDT 02/04/2025 12:07 PM CDT Nir Morton DO LAB POCT ORDERABLES - DEVICE Final Result Performing Organization Address [facility] Co de Phone Number [facility] ([place]) 1 [facility] [employer] [place] [address] * POCT glucose (02/04/2025 8:09 AM CDT) Glucose, POC 139 70 - 199 mg/dL Blood 02/04/2025 8:09 AM CDT 02/04/2025 8:09 AM CDT Nir Morton DO LAB POCT ORDERABLES - DEVICE Final Result Performing Organization Address [facility] Co de Phone Number [facility] ([place]) 1 [facility] [employer] [place] [address] * eGFR (02/04/2025 2:45 AM CDT) eGFR 65 >=60 mL/min/1. 73 m2 Comment: Interpretive Data Reference Interval Normal >/= 90 mL/min/1.73m2 Mildly decreased* 60 - 89 mL/min/1.73m2 Mildly to moderately decreased 45 - 59 mL/min/1.73m2 Moderately to severely decreased 30 - 44 mL/min/1.73m2 Severely decreased 15 - 29 mL/min/1.73m2 Kidney Failure < 15 mL/min/1.73m2 *Relative to young adult level Estimated glomerular filtration rate is determined by the 2020 CKD-EPI equation recommended by the National Kidney Foundation (A Unifying Approach to GFR Estimation: Recommendations of the NKF-ASK Task Force on Reassessing the Inclusion of Race in Diagnosing Kidney Disease, JASN 2020). The CKD-EPI equation should not be used for patients with unstable renal function and has not been validated in children and those over 70. Current interpretive data was last reviewed 2021. Blood 02/04/2025 2:45 AM CDT 02/04/2025 3:40 AM CDT us Josesito Contreras MD LAB BLOOD ORDERABLES Final Resu lt [facility] ([place]) 1 [facility] [place] [address] * Differential, auto (02/04/2025 2:45 AM CDT) Neutrophil abs 5.01 1.50 - 6.50 K/cumm Imm gran abs 0.06 0.00 - 0.10 K/cumm [facility] ([place]) Lymphocyte abs 2.87 0.80 - 3.30 K/cumm [facility] ([place]) Monocyte abs 0.76 0.20 - 0.80 K/cumm [facility] ([place]) Eosinophil abs 0.25 0.00 - 0.50 K/cumm [facility] ([place]) Basophil abs 0.07 0.00 - 0.10 K/cumm [facility] ([place]) Neutrophil pct 55.5 % [facility] ([place]) Comment: Interpretive Data Percent cell count reference ranges are not reported, since discordance with absolute values may lead to misinterpretation of CBC data. Current Interpretive Data was last revised on 2017. Imm gran pct 0.7 % [facility] ([place]) Comment: Interpretive Data Percent cell count reference ranges are not reported, since discordance with absolute values may lead to misinterpretation of CBC data. Current Interpretive Data was last revised on 2017. Lymphocyte pct 31.8 % [facility] ([place]) Comment: Interpretive Data Percent cell count reference ranges are not reported, since discordance with absolute values may lead to misinterpretation of CBC data. Current Interpretive Data was last revised on 2017. Monocyte pct 8.4 % [facility] ([place]) Comment: Interpretive Data Percent cell count reference ranges are not reported, since discordance with absolute values may lead to misinterpretation of CBC data. Current Interpretive Data was last revised on 2017. Eosinophil pct 2.8 % [facility] ([place]) Comment: Interpretive Data Percent cell count reference ranges are not reported, since discordance with absolute values may lead to misinterpretation of CBC data. Current Interpretive Data was last revised on 2017. Basophil pct 0.8 % [facility] ([place]) Comment: Interpretive Data Percent cell count reference ranges are not reported, since discordance with absolute values may lead to misinterpretation of CBC data. Current Interpretive Data was last revised on 2017. Blood 02/04/2025 2:45 AM CDT 02/04/2025 3:40 AM CDT us Josesito Contreras MD LAB BLOOD ORDERABLES Final Resu lt [facility] ([place]) 1 [facility] [place] [address] * (ABNORMAL) CBC with auto differential (02/04/2025 2:45 AM CDT) WBC 9.02 3.80 - 9.90 K/cumm Hgb 13.0 13.0 - 17.5 g/dL [facility] ([place]) Hct 39.5 38.9 - 50.3 % [facility] ([place]) Plt 295 150 - 400 K/cumm [facility] ([place]) MPV 9.7 9.1 - 12.3 fL [facility] ([place]) RBC 4.29(L) 4.30 - 5.80 M/cumm [facility] ([place]) MCV 92.1 81.3 - 96.4 fL [facility] ([place]) MCH 30.3 27.1 - 33.3 pg [facility] ([place]) MCHC 32.9 32.3 - 35.7 g/dL [facility] ([place]) RDW CV 14.3 11.1 - 14.9 % [facility] ([place]) RDW SD 48.4(H) 35.7 - 48.1 fL [facility] NRBC abs 0.00 0.00 - 0.01 K/cumm [facility] ([place]) Blood 02/04/2025 2:45 AM CDT 02/04/2025 3:40 AM CDT us Josesito Contreras MD LAB BLOOD ORDERABLES Final Resu lt [facility] ([place]) 1 [facility] [place] [address] * Comprehensive metabolic panel (02/04/2025 2:45 AM CDT) Sodium 140 135 - 145 mmol/L [facility]) Potassium, pl 3.5 3.3 - 4.9 mmol/L [facility] Chloride 107 97 - 110 mmol/L [facility]) CO2 22 22 - 32 mmol/L [facility]) Anion gap 11 2 - 15 mmol/L [facility]) BUN 16 6 - 25 mg/dL [facility] Creatinine 1.23 0.80 - 1.30 mg/dL [facility] [place]) Glucose 96 70 - 199 mg/dL [facility] Comment: Interpretive Data Fasting glucose >/= 126 mg/dl is diagnostic for diabetes. Fasting is defined as no caloric intake for at least 8 hours. Fasting glucose between 100 mg/dl to 125 mg/dl is diagnostic of prediabetes. In a patient with classic symptoms of hyperglycemia or hyperglycemic crisis, a random glucose >/= 200 mg/dl is diagnostic for diabetes. In the absence of unequivocal hyperglycemia, results should be confirmed by repeat testing. The classification and Diagnosis of Diabetes Diabetes Care 2021; 46: S19-S40. Current interpretive data was last revised 2022. Calcium 9.3 8.5 - 10.3 mg/dL [facility] ([place]) Bilirubin, total 0.2 0.1 - 1.2 mg/dL [facility] ([place]) Protein, pl 6.8 6.5 - 8.5 g/dL [facility] ([place]) Albumin 4.0 3.5 - 5.0 g/dL [facility] ([place]) Alk phos 78 40 - 130 Units/L [facility] ([place]) ALT 20 7 - 55 Units/L [facility] [place]) AST 18 10 - 50 Units/L [facility] ([place]) Blood 02/04/2025 2:45 AM CDT 02/04/2025 3:40 AM CDT Josesito Contreras MD LAB BLOOD ORDERABLES Final Resu lt [facility] ([place]) 1 [facility] [place] [address] * POCT glucose (02/04/2025 2:04 AM CDT) Glucose, POC 100 70 - 199 mg/dL Blood 02/04/2025 2:04 AM CDT 02/04/2025 2:04 AM CDT Nir Morton DO LAB POCT ORDERABLES - DEVICE Final Result [facility] ([place]) 1 [facility] [place] [place] [address] * POCT glucose (02/03/2025 8:44 PM CDT) Glucose, POC 115 70 - 199 mg/dL Blood 02/03/2025 8:44 PM CDT 02/03/2025 8:44 PM CDT Nir Morton DO LAB POCT ORDERABLES - DEVICE Final Result [facility] ([place]) 1 [facility] [place] [address] * POCT glucose (02/03/2025 4:44 PM CDT) Glucose, POC 103 70 - 199 mg/dL Blood 02/03/2025 4:44 PM CDT 02/03/2025 4:44 PM CDT Nir Morton DO LAB POCT ORDERABLES - DEVICE Final Result Performing Organization Address [facility] Co de Phone Number [facility] ([place]) 1 [facility] [employer] [place] [address] * MRI Brain W WO Contrast (02/03/2025 2:42 PM CDT) Anatomical Region Laterality Modality Head and Neck N/A Magnetic Resonan ce 02/03/2025 2:50 PM CDT Narrative 02/03/2025 2:59 PM CDT EXAM DESCRIPTION: MRI BRAIN W WO CONTRAST REASON FOR STUDY: Mental status change, unknown cause, hiv intermitent garbled speech 10 days Pt states that he has been having spells where he talks nonsense. Pt states it has been going on for a week and a half. Pt states that his doctor wanted him to come in. Pt states he gets head pressure, and then head and neck pain on the right side, and then he'll start talking about something that doesn't make sense. TECHNIQUE: Multiplanar imaging includes noncontrast T1, T2, FLAIR, diffusion with ADC map and post contrast T1 sequences. Additional sequence(s) sensitive to blood products. Images stored on PACS. CONTRAST TYPE/DOSE: 12mL of GADOTERATE MEGLUMINE 0.5 MMOL/ML INTRAVENOUS SOLUTION (SO) injected via intravenous COMPARISON: CT head without contrast and CTA head and neck dated 02/02/2025. CT head without contrast dated 05/04/2024, 11/23/2022, 10/13/2022 and 12/22/2021. FINDINGS: There is no diffusion restriction to suggest acute/recent infarction. No parenchymal susceptibility signal to indicate blood degradation products. There is mild diffuse parenchymal volume loss. No hydrocephalus. The basilar cisterns are maintained. The subcortical and periventricular white matter T2/FLAIR hyperintense signal in the bilateral cerebral hemispheres is nonspecific but compatible with chronic microvascular ischemic type change in a patient of this age. The postcontrast sequences are degraded by motion and pulsation related artifact. No convincing enhancing parenchymal mass. The vascular findings are better assessed on dedicated CT angiogram dated 02/02/2025. The bilateral globes are symmetric. There is mucosal thickening in the bilateral ethmoid air cells. Right sphenoid sinus tiny air-fluid level. Bilateral mastoid T2 hyperintense fluid signal. There is layering T2 hyperintense fluid signal in the posterior nasopharynx. IMPRESSION: 1. There is no acute infarction. 2. Parenchymal volume loss, chronic microvascular ischemic type white-matter changes and other findings as above. 3. Sphenoid sinus small air-fluid level can be seen with acute sinusitis in the proper clinical scenario. THIS IS AN ELECTRONICALLY VERIFIED FINAL REPORT 02/03/2025 2:59 PM - Electronically signed by Roderick Oakley D.O. AP: AP Report ID: [id number] Reading Location: [place] [address] Procedure Note Roderick Oakley, DO - 02/03/2025 EXAM DESCRIPTION: MRI BRAIN W WO CONTRAST REASON FOR STUDY: Mental status change, unknown cause, hiv intermitent garbled speech 10 days Pt states that he has been having spells where he talks nonsense. Ptstates it has been going on for a week and a half. Pt states that his doctorwanted him to come in. Pt states he gets head pressure, and then head and neck pain on the right side, and then he'll start talking about somethingthat doesn't make sense. TECHNIQUE: Multiplanar imaging includes noncontrast T1, T2, FLAIR,diffusion with ADC map and post contrast T1 sequences. Additional sequence(s)sensitive to blood products. Images stored on PACS. CONTRAST TYPE/DOSE: 12mL of GADOTERATE MEGLUMINE 0.5 MMOL/ML INTRAVENOUS SOLUTION (SO) injected via intravenous COMPARISON: CT head without contrast and CTA head and neck dated02/02/2025. CT head without contrast dated 05/04/2024, 11/23/2022, 10/13/2022 and 12/22/2021. FINDINGS: There is no diffusion restriction to suggest acute/recent infarction. No parenchymal susceptibility signal to indicate blood degradationproducts. There is mild diffuse parenchymal volume loss. No hydrocephalus. Thebasilar cisterns are maintained. The subcortical and periventricular white matter T2/FLAIR hyperintensesignal in the bilateral cerebral hemispheres is nonspecific but compatible with chronic microvascular ischemic type change in a patient of this age. The postcontrast sequences are degraded by motion and pulsation related artifact. No convincing enhancing parenchymal mass. The vascular findings are better assessed on dedicated CT angiogram dated 02/02/2025. The bilateral globes are symmetric. There is mucosal thickening in the bilateral ethmoid air cells. Right sphenoid sinus tiny air-fluid level. Bilateral mastoid T2 hyperintense fluid signal. There is layering T2 hyperintense fluid signal in the posterior nasopharynx. IMPRESSION: 1. There is no acute infarction. 2. Parenchymal volume loss, chronic microvascular ischemic typewhite-matter changes and other findings as above. 3. Sphenoid sinus small air-fluid level can be seen with acute sinusitisin the proper clinical scenario. THIS IS AN ELECTRONICALLY VERIFIED FINAL REPORT 02/03/2025 2:59 PM - Electronically signed by Roderick Oakley D.O. AP: AP Report ID: [id number] Reading Location: [place] [address] us Josesito Contreras MD [facility] [place]ED[place] Final Result * TRANSTHORACIC ECHO (TTE) COMPLETE W DOPPLER/CF WO CONTRAST W BUBBLE (02/03/2025 11:55 AM CDT) Estimated EF 65 % CONS SCIMAGE Anatomical Region Laterality Modality Ultrasound 02/03/2025 11:4 7 AM CDT Narrative 02/03/2025 1:28 PM CDT [address] [place] [address] Echocardiogram Report Patient Name: ELIEL ABBASI E : 1960 Study Date: 02/03/2025 11:47:12 AM Sex: M Tech: Location: [id number] Ref Provider: GUANAKO SCHOFIELD Height(Cm): BSA: Weight(Kg): Quality: Adequate Order Provider: GUANAKO SCHOFIELD PROCEDURES: Echocardiographic Report: Transthoracic echocardiogram with 2D, M-Mode, and color Doppler examination with saline contrast study. INDICATIONS: Stroke. MEASUREMENTS: 2D/MM Value Range Doppler Value Range EF Teich MM 51.0 % [ 52.0 - 72.0 ] TIFFANI Vmax 3.13 cm2 Estimated EF 65 % AV Mean PG 3 mmHg LVIDd MM 5.20 cm [ 4.20 - 5.80 ] AV Peak Agus 1.16 m/s [ 1.00 - 1.70 ] LVIDs MM 3.80 cm [ 2.50 - 4.00 ] AV VTI 23.56 cm LVPWd MM 1.50 cm [ 0.60 - 1.00 ] LVOT Diam 2.04 cm IVSd MM 1.40 cm [ 0.60 - 1.00 ] LVOT Peak Agus 1.12 m/s [ 0.70 - 1.10 ] LA Dimension MM 3.16 cm [ 3.00 - 4.00 ] LVOT VTI 22.88 cm AoR Diam MM 3.43 cm [ 3.10 - 3.70 ] MV E Peak Agus 0.62 m/s [ 0.60 - 1.30 ] ACS MM 1.51 cm [ 1.50 - 2.60 ] MV A Peak Agus 0.79 m/s [ 1.00 - 1.20 ] MV Mean PG 2 mmHg MV PHT 65 msec [ 20 - 100 ] MVA 3.40 MV Decel Time 222 msec [ 104 - 258 ] PV Peak Agus 0.78 m/s [ 0.40 - 0.80 ] TR Peak Agus 2.47 m/s [ 1.00 - 2.80 ] TR Peak PG 24 mmHg RVSP 27.00 mmHg [ 10.00 - 36.00 ] E` 0.06 m/s E/E` 9.79 [ <= 10.00 ] PA Pressure 27.00 mmHg [ 10.00 - 36.00 ] 2D/MM Value Range Doppler Value Range - FINDINGS: Atrial Septum: Saline contrast study performed without evidence of right to left shunt. Left Ventricle: Normal left ventricular systolic function with no focal wall motion abnormalities. Normal left ventricular size. Mild concentric left ventricular hypertrophy. Impaired diastolic relaxation Grade I. Ejection Fraction is estimated to be 65 %. Left Atrium: The left atrium is normal in size. Right Ventricle: Normal right ventricular size. Normal right ventricular systolic function. Right Atrium: The right atrium is normal in size. Aortic Valve: Normal structure of the aortic valve. Mitral Valve: Moderate mitral valve regurgitation. Pulmonic Valve: Normal structure of the pulmonic valve. Tricuspid Valve: Normal right ventricular systolic pressure. Estimated peak RVSP is 30 mmHg. Mild tricuspid regurgitation. Pericardium: Normal pericardium with no significant pericardial effusion. Aorta: Normal aortic root. Sinus of Valsalva is normal. Aortic arch is normal. Descending aorta is normal. IVC: Normal size and normal respiratory collapse consistent with normal right atrial pressure (<5 mmHg). Pulmonary Artery: Normal pulmonary artery size. CONCLUSIONS: Normal left ventricular systolic function with no focal wall motion abnormalities. Normal left ventricular size. Mild concentric left ventricular hypertrophy. Impaired diastolic relaxation Grade I. Ejection Fraction is estimated to be 65 %. Saline contrast study performed without evidence of right to left shunt. Moderate mitral valve regurgitation. Normal right ventricular systolic pressure. Estimated peak RVSP is 30 mmHg. Mild tricuspid regurgitation. Electronically Signed By: Shahab Rdz MD 02/03/2025 1:28:13 PM CDT Procedure Note Shahab Rdz MD - 02/03/[address] [place] [address] Echocardiogram Report Patient Name: ELIEL ABBASI E : 1960 Study Date: 02/03/2025 11:47:12 AM Sex: M Tech: Location: [place] [address] Ref Provider: GUANAKO SCHOFIELD Height(Cm): BSA: Weight(Kg): Quality: Adequate Order Provider: GUANAKO SCHOFIELD PROCEDURES: Echocardiographic Report: Transthoracic echocardiogram with 2D, M-Mode, and color Dopplerexamination with saline contrast study. INDICATIONS: Stroke. MEASUREMENTS: 2D/MM Value Range Doppler ValueRange EF Teich MM 51.0 % [ 52.0 - 72.0 ] TIFFANI Vmax 3.13cm2 Estimated EF 65 % AV Mean PG 3 mmHg LVIDd MM 5.20 cm [ 4.20 - 5.80 ] AV Peak Agus 1.16 m/s[ 1.00 - 1.70 ] LVIDs MM 3.80 cm [ 2.50 - 4.00 ] AV VTI 23.56cm LVPWd MM 1.50 cm [ 0.60 - 1.00 ] LVOT Diam 2.04cm IVSd MM 1.40 cm [ 0.60 - 1.00 ] LVOT Peak Agus 1.12 m/s[ 0.70 - 1.10 ] LA Dimension MM 3.16 cm [ 3.00 - 4.00 ] LVOT VTI 22.88cm AoR Diam MM 3.43 cm [ 3.10 - 3.70 ] MV E Peak Agus 0.62 m/s[ 0.60 - 1.30 ] ACS MM 1.51 cm [ 1.50 - 2.60 ] MV A Peak Agus 0.79 m/s[ 1.00 - 1.20 ] MV Mean PG 2 mmHg MV PHT 65 msec [ 20 - 100 ] MVA 3.40 MV Decel Time 222 msec [ 104 - 258 ] PV Peak Agus 0.78 m/s [ 0.40 - 0.80 ] TR Peak Agus 2.47 m/s [ 1.00 - 2.80 ] TR Peak PG 24 mmHg RVSP 27.00 mmHg [ 10.00 - 36.00 ] E` 0.06 m/s E/E` 9.79 [ <= 10.00 ] PA Pressure 27.00 mmHg [ 10.00 - 36.00 ] 2D/MM Value Range Doppler ValueRange - FINDINGS: Atrial Septum: Saline contrast study performed without evidence of right to left shunt. Left Ventricle: Normal left ventricular systolic function with no focal wall motionabnormalities. Normal left ventricular size. Mild concentric left ventricular hypertrophy.Impaired diastolic relaxation Grade I. Ejection Fraction is estimated to be 65 %. Left Atrium: The left atrium is normal in size. Right Ventricle: Normal right ventricular size. Normal right ventricular systolicfunction. Right Atrium: The right atrium is normal in size. Aortic Valve: Normal structure of the aortic valve. Mitral Valve: Moderate mitral valve regurgitation. Pulmonic Valve: Normal structure of the pulmonic valve. Tricuspid Valve: Normal right ventricular systolic pressure. Estimated peak RVSP is 30mmHg. Mild tricuspid regurgitation. Pericardium: Normal pericardium with no significant pericardial effusion. Aorta: Normal aortic root. Sinus of Valsalva is normal. Aortic arch is normal.Descending aorta is normal. IVC: Normal size and normal respiratory collapse consistent with normal rightatrial pressure (<5 mmHg). Pulmonary Artery: Normal pulmonary artery size. CONCLUSIONS: Normal left ventricular systolic function with no focal wall motionabnormalities. Normal left ventricular size. Mild concentric left ventricular hypertrophy.Impaired diastolic relaxation Grade I. Ejection Fraction is estimated to be 65 %. Saline contrast study performed without evidence of right to left shunt. Moderate mitral valve regurgitation. Normal right ventricular systolic pressure. Estimated peak RVSP is 30mmHg. Mild tricuspid regurgitation. Electronically Signed By: Shahab Rdz MD 02/03/2025 1:28:13 PM CDT Guanako Schofield MD CV ECHO PROCEDURES Final Re sult * POCT glucose (02/03/2025 11:49 AM CDT) Glucose, POC 105 70 - 199 mg/dL Blood 02/03/2025 11:4 9 AM CDT 02/03/2025 11:49 AM CDT Nir Morton DO LAB POCT ORDERABLES - DEVICE Final Result [facility] ([place]) 1 [facility] [place] [employer] [place] [address] * POCT glucose (02/03/2025 8:01 AM CDT) Glucose, POC 108 70 - 199 mg/dL Blood 02/03/2025 8:01 AM CDT 02/03/2025 8:01 AM CDT Nir Prasad [facility] DO LAB POCT ORDERABLES - DEVICE Final Result Performing Organization Address City/[facility] Co de Phone Number [facility] ([place]) 1 [facility] [employer] [place] [address] * eGFR (02/03/2025 5:03 AM CDT) eGFR 79 >=60 mL/min/1. 73 m2 Comment: Interpretive Data Reference Interval Normal >/= 90 mL/min/1.73m2 Mildly decreased* 60 - 89 mL/min/1.73m2 Mildly to moderately decreased 45 - 59 mL/min/1.73m2 Moderately to severely decreased 30 - 44 mL/min/1.73m2 Severely decreased 15 - 29 mL/min/1.73m2 Kidney Failure < 15 mL/min/1.73m2 *Relative to young adult level Estimated glomerular filtration rate is determined by the 2020 CKD-EPI equation recommended by the National Kidney Foundation (A Unifying Approach to GFR Estimation: Recommendations of the NKF-ASK Task Force on Reassessing the Inclusion of Race in Diagnosing Kidney Disease, JASN 2020). The CKD-EPI equation should not be used for patients with unstable renal function and has not been validated in children and those over 70. Current interpretive data was last reviewed 2021. Blood 02/03/2025 5:03 AM CDT 02/03/2025 5:07 AM CDT us Josesito Contreras MD LAB BLOOD ORDERABLES Final Resu lt [facility] ([place]) 1 [facility] [place] [address] * (ABNORMAL) Differential, auto (02/03/2025 5:03 AM CDT) Neutrophil abs 6.71(H) 1.50 - 6.50 K/cumm Imm gran abs 0.06 0.00 - 0.10 K/cumm [facility] ([place]) Lymphocyte abs 2.07 0.80 - 3.30 K/cumm [facility] ([place]) Monocyte abs 0.62 0.20 - 0.80 K/cumm [facility] ([place]) Eosinophil abs 0.28 0.00 - 0.50 K/cumm [facility] ([place]) Basophil abs 0.07 0.00 - 0.10 K/cumm [facility] ([place]) Neutrophil pct 68.4 % [facility] ([place]) Comment: Interpretive Data Percent cell count reference ranges are not reported, since discordance with absolute values may lead to misinterpretation of CBC data. Current Interpretive Data was last revised on 2017. Imm gran pct 0.6 % [facility] ([place]) Comment: Interpretive Data Percent cell count reference ranges are not reported, since discordance with absolute values may lead to misinterpretation of CBC data. Current Interpretive Data was last revised on 2017. Lymphocyte pct 21.1 % [facility] ([place]) Comment: Interpretive Data Percent cell count reference ranges are not reported, since discordance with absolute values may lead to misinterpretation of CBC data. Current Interpretive Data was last revised on 2017. Monocyte pct 6.3 % [facility] ([place]) Comment: Interpretive Data Percent cell count reference ranges are not reported, since discordance with absolute values may lead to misinterpretation of CBC data. Current Interpretive Data was last revised on 2017. Eosinophil pct 2.9 % [facility] ([place]) Comment: Interpretive Data Percent cell count reference ranges are not reported, since discordance with absolute values may lead to misinterpretation of CBC data. Current Interpretive Data was last revised on 2017. Basophil pct 0.7 % [facility] ([place]) Comment: Interpretive Data Percent cell count reference ranges are not reported, since discordance with absolute values may lead to misinterpretation of CBC data. Current Interpretive Data was last revised on 2017. Blood 02/03/2025 5:03 AM CDT 02/03/2025 5:07 AM CDT Josesito Contreras MD LAB BLOOD ORDERABLES Final Resu lt Performing Organization Address City/[facility]/ZIP Co de Phone Number LOUIS HAWKINS ([place]) 1 [facility] [place] [address] * Procalcitonin (02/03/2025 5:03 AM CDT) Procalcitonin <0.05 <=0.25 ng/mL Comment:Testing performed by : [facility], [address] [place] [address]., [id number] Blood 02/03/2025 5:03 AM CDT 02/03/2025 6:03 PM CDT Josesito Contreras MD LAB BLOOD ORDERABLES Final Resu lt LOU[facility] HAWKINS ([place]) 1 [facility] [place] [address] * (ABNORMAL) CBC with auto differential (02/03/2025 5:03 AM CDT) WBC 9.81 3.80 - 9.90 K/cumm Hgb 13.0 13.0 - 17.5 g/dL LOU[facility] HAWKINS ([place]) Hct 41.0 38.9 - 50.3 % [facility] ([place]) Plt 264 150 - 400 K/cumm [facility] ([place]) MPV 9.5 9.1 - 12.3 fL [facility] ([place]) RBC 4.33 4.30 - 5.80 M/cumm [facility] ([place]) MCV 94.7 81.3 - 96.4 fL [facility] ([place]) MCH 30.0 27.1 - 33.3 pg [facility] ([place]) MCHC 31.7(L) 32.3 - 35.7 g/dL [facility] ([place]) RDW CV 14.2 11.1 - 14.9 % [facility] ([place]) RDW SD 48.8(H) 35.7 - 48.1 fL [facility] ([place]) NRBC abs 0.00 0.00 - 0.01 K/cumm [facility] Blood 02/03/2025 5:03 AM CDT 02/03/2025 5:07 AM CDT us Josesito Contreras MD LAB BLOOD ORDERABLES Final Resu lt [facility] ([place]) 1 [facility] [place] [address] * (ABNORMAL) Comprehensive metabolic panel (02/03/2025 5:03 AM CDT) Sodium 137 135 - 145 mmol/L [facility] ([place]) Potassium, pl 4.0 3.3 - 4.9 mmol/L [facility] ([place] Chloride 104 97 - 110 mmol/L [facility] ([place] CO2 19(L) 22 - 32 mmol/L [facility] ([place]) Anion gap 14 2 - 15 mmol/L [facility] BUN 11 6 - 25 mg/dL [facility] Creatinine 1.05 0.80 - 1.30 mg/dL [facility] ([place]) Glucose 139 70 - 199 mg/dL [facility] ([place]) Comment: Interpretive Data Fasting glucose >/= 126 mg/dl is diagnostic for diabetes. Fasting is defined as no caloric intake for at least 8 hours. Fasting glucose between 100 mg/dl to 125 mg/dl is diagnostic of prediabetes. In a patient with classic symptoms of hyperglycemia or hyperglycemic crisis, a random glucose >/= 200 mg/dl is diagnostic for diabetes. In the absence of unequivocal hyperglycemia, results should be confirmed by repeat testing. The classification and Diagnosis of Diabetes Diabetes Care 2021; 46: S19-S40. Current interpretive data was last revised 2022. Calcium 9.5 8.5 - 10.3 mg/dL [facility] ([place]) Bilirubin, total 0.3 0.1 - 1.2 mg/dL [facility] ([place]) Protein, pl 6.4(L) 6.5 - 8.5 g/dL [facility] ([place]) Albumin 3.8 3.5 - 5.0 g/dL [facility] ([place]) Alk phos 85 40 - 130 Units/L [facility] ([place]) ALT 20 7 - 55 Units/L [facility] ([place]) AST 21 10 - 50 Units/L [facility] ([place]) Blood 02/03/2025 5:03 AM CDT 02/03/2025 5:07 AM CDT Josesito Contreras MD LAB BLOOD ORDERABLES Final Resu lt [facility] ([place]) 1 [facility] Department of Laboratories [place], [place] [id number] * Strep pneumoniae antigen, urine Urine (02/03/2025 4:13 AM CDT) S. pneumoniae Ag Negative Negative Comment: Interpretive Data A positive result is indicative of pneumococcal pneumonia in patients with severe CAP. Cross-reactivity with closely related Streptococcus bacteria may occur. A negative result suggests no current or recent pneumococcal infection but cannot rule out infection with S. pneumoniae. The results of this testing should be used in conjunction with clinical findings and other diagnostic testing, including microbiologic culture. Current Interpretive Data was last revised on 2022 Testing performed by: [facility], [address] [place] [address], [place]., [address] Urine 02/03/2025 4:13 AM CDT 02/03/2025 9:27 AM CDT Josesito Contreras MD LAB MICROBIOLOGY - GENERAL CHAZ SUN Final Result Performing Organization Address City/[facility]/ZIP Co de Phone Number LOUIS HAWKINS ([place]) 1 [facility] [place] [address] * MRSA Only (Staphylococcus aureus) PCR Nasal (02/03/2025 4:13 AM CDT) PCR Scrn, Methicillin resistant Staphylococcus aureus (MRSA) Not Detected Not Detected Comment: Interpretive Data Testing performed using Nucleic Acid Amplification with the Souqalmal Xpert MRSA NxG Assay. This assay detects target DNA from mecA, mecC and the SCCmec insertion site of Staphylococcus aureus using Real-Time PCR and has been cleared by the FDA. Performance characteristics have been verified by the [facility]. Current Interpretive Data was last revised on 2022 Nasal 02/03/2025 4:13 AM CDT 02/03/2025 4:43 AM CDT Josesito oCntreras MD LAB MICROBIOLOGY - [facility] CHAZ SUN Final Result Performing Organization Address City/[facility] Co de Phone Number LOUIS HAWKINS ([place]) 1 [facility] [place] [address] * Legionella antigen Urine (02/03/2025 4:13 AM CDT) Legionella Ag Negative Negative Comment: Interpretive Data This test detects only Legionella pneumophila serogroup 1 antigen. Current interpretive data was last revised on 2019. Testing performed by: [facility], [address] [place] [address], [place]., [address] Urine 02/03/2025 4:13 AM CDT 02/03/2025 9:27 AM CDT Josesito Contreras MD LAB MICROBIOLOGY - GENERAL [place] SUN Final Result LOUIS HAWKINS ([place]) 1 [place] [address] * POCT glucose (02/03/2025 2:13 AM CDT) Glucose, POC 74 70 - 199 mg/dL Blood 02/03/2025 2:13 AM CDT 02/03/2025 2:13 AM CDT Nir Morton DO LAB POCT ORDERABLES - DEVICE Final Result Performing Organization Address [facility] Co de Phone Number LOUIS HAWKINS ([place]) 1 [place] [address] * Sepsis Lactate w/ Reflex (02/02/2025 11:19 PM CDT) Pathologist [facility] Sepsis Lactate 1.2 0.7 - 2.0 mmol/L Blood 02/02/2025 11:1 9 PM CDT 02/02/2025 11:22 PM CDT Guanako Schofield MD LAB BLOOD ORDERABLES Final Result Performing Organization Address [facility] de Phone Number LOUIS HAWKINS ([place]) 1 [place] [address] * (ABNORMAL) Urinalysis reflex to microscopic (02/02/2025 11:16 PM CDT) Color, ur Straw Yellow Clarity, ur Clear Clear L[facility] ([place]) Specific gravity, ur 1.011 1.003 - 1.030 [facility] ([place]) pH, urine 6.5 [facility] ([place]) Comment: Interpretive Data U rine pH is affected by diet, medications, systemic acid-base disturbances, and renal tubular function. pH may affect urinary stone formation. For example, urine pH below 6.0 may help reduce the tendency for calcium phosphate stones and pH greater than 6.0 may reduce the tendency for uric acid stone formation. Source: [employer] Current Interpretive Data was last revised on 2017 Protein, ur ql Negative Negative [facility] ([place]) Glucose, ur ql 4+(A) Negative [facility] ([place]) Ketones, ur Negative Negative [facility] ([place]) Bilirubin, ur Negative Negative [facility] ([place]) Blood, ur 1+(A) Negative [facility] ([place]) Urobilinogen, ur <2.0 <2.0 mg/dL [facility] ([place]) Nitrite, ur Negative Negative [facility] ([place]) Leukocyte esterase, ur Negative Negative [facility] ([place]) UA reflex comment Reflex to microscopic UA will be performed. [facility] ([place]) Urine 02/02/2025 11:1 6 PM CDT 02/02/2025 11:41 PM CDT us Guanako Schofield MD LAB URINE ORDERABLES Final Result Performing Organization Address City/[facility]/ZIP Co de Phone Number [facility] ([place]) 1 [facility] [employer] [place] [address] * Urinalysis, microscopic only (02/02/2025 11:16 PM CDT) WBC, ur 0-5 0 - 5 /HPF RBC, ur 0-2 0 - 2 /HPF [facility] ([place]) Urine 02/02/2025 11:1 6 PM CDT 02/02/2025 11:41 PM CDT Guanako Schofield MD LAB URINE ORDERABLES Final Result [facility] ([place]) 1 [facility] [employer] [place] [address] * Troponin T high-sensitivity 6-hour (02/02/2025 10:02 PM CDT) Trop T hs 9 <=22 ng/L [facility] ([place]) Comment: Interpretive Data For further hscTnT resources including the diagnostic algorithm and an aid in interpretation, copy and paste this link: https://nrl.testcatalog.org/show/hsTrop Current Interpretive Data last revised 2020. Trop T hs delta -2 ng/L [facility] ([place]) Trop T hs interp Insignificant [facility] ([place]) Blood 02/02/2025 10:0 2 PM CDT 02/02/2025 10:08 PM CDT Guanako Schofield MD LAB BLOOD ORDERABLES Final Result [facility] ([place]) 1 [facility] [place] [employer] [place] [address] * POCT glucose (02/02/2025 8:23 PM CDT) Glucose, POC 91 70 - 199 mg/dL Blood 02/02/2025 8:23 PM CDT 02/02/2025 8:23 PM CDT Nir Morton DO LAB POCT ORDERABLES - DEVICE Final Result Performing Organization Address [facility] Co de Phone Number [facility] ([place]) 1 [facility] [place] [address] * Troponin T high-sensitivity 4-hour (02/02/2025 8:00 PM CDT) Trop T hs 9 <=22 ng/L [facility] ([place]) Comment: Interpretive Data For further hscTnT resources including the diagnostic algorithm and an aid in interpretation, copy and paste this link: https://nrl.testcatalog.org/show/hsTrop Current Interpretive Data last revised 2020. Trop T hs delta -2 ng/L [facility] ([place]) Trop T hs interp Insignificant [facility] ([place]) Blood 02/02/2025 8:00 PM CDT 02/02/2025 8:06 PM CDT Guanako Schofield MD LAB BLOOD ORDERABLES Final Result Performing Organization Address City/[facility]/ZIP Co de Phone Number LOUIS HAWKINS ([place]) 1 [facility] Department [place] [employer] [place] [address] * (ABNORMAL) Sepsis Lactate w/ Reflex (02/02/2025 8:00 PM CDT) Sepsis Lactate 2.1(H) 0.7 - 2.0 mmol/L Blood 02/02/2025 8:00 PM CDT 02/02/2025 8:06 PM CDT Guanako Schofield MD LAB BLOOD ORDERABLES Final Result LOUIS HAWKINS ([place]) 1 [place] [address] * Blood culture Blood (02/02/2025 8:00 PM CDT) Report Final Report: No growth Comment:Testing performed by : [facility], 1 [place]., [address] Blood 02/02/2025 8:00 PM CDT 02/02/2025 9:44 PM CDT Narrative LOUIS HAWKINS ([place]) - 02/07/2025 7:01 AM CDT Collection->Peripheral 1. Blood cultures are incubated for 4 days on a continuously monitored blood culture system. The first report of a negative culture is issued within 24 hours of receipt of the specimen in the laboratory. 2. Positive culture results are reported as soon as they are detected. 3. The most important factor for detection of microbes in the setting of bloodstream infection is the volume of blood submitted for culture. Failure to collect an optimal blood volume can result in false negative blood cultures. 4. For pediatric patients, the recommended blood volume to collect follows a weight based strategy. See the electronic test catalog for collection instructions. 5. For positive blood cultures, a rapid molecular test may be performed for organism identification using the ankit ePlex blood culture identification panel for gram positive (BCID-GP) and gram negative (BCID-GN) organisms. This nucleic acid amplification test detects microbial DNA in positive blood culture broth. This assay has been cleared by the [place] Food and Drug Administration and its performance characteristics have been verified by the [facility]. For questions about this culture, contact the Microbiology Laboratory at [phone]. Interpretive data was last revised on 24. Guanako Schofield MD LAB MICROBIOLOGY - GENERAL ORDERABLES Final Result LOUIS HAWKINS ([place]) 1 [facility] [place] [address] * Blood culture Blood (02/02/2025 8:00 PM CDT) Report Final Report: No growth Comment:Testing performed by : [facility], 1 [place] [address] Blood 02/02/2025 8:00 PM CDT 02/02/2025 9:44 PM CDT Narrative LOUIS HAWKINS ([place]) - 02/07/2025 7:01 AM CDT Collection->Peripheral 1. Blood cultures are incubated for 4 days on a continuously monitored blood culture system. The first report of a negative culture is issued within 24 hours of receipt of the specimen in the laboratory. 2. Positive culture results are reported as soon as they are detected. 3. The most important factor for detection of microbes in the setting of bloodstream infection is the volume of blood submitted for culture. Failure to collect an optimal blood volume can result in false negative blood cultures. 4. For pediatric patients, the recommended blood volume to collect follows a weight based strategy. See the electronic test catalog for collection instructions. 5. For positive blood cultures, a rapid molecular test may be performed for organism identification using the ankti ePlex blood culture identification panel for gram positive (BCID-GP) and gram negative (BCID-GN) organisms. This nucleic acid amplification test detects microbial DNA in positive blood culture broth. This assay has been cleared by the [place] Food and Drug Administration and its performance characteristics have been verified by the [facility]. For questions about this culture, contact the Microbiology Laboratory at [phone]. Interpretive data was last revised on 24. us Guanako Schofield MD LAB MICROBIOLOGY - GENERAL ORDERABLES Final Result LOUIS HAWKINS [place]) 2 [facility] [place] [address] * CTA Head Neck W WO Contrast (02/02/2025 4:36 PM CDT) Anatomical Region Laterality Modality Head and Neck N/A Computed Tomogra phy 02/02/2025 4:46 PM CDT Narrative 02/02/2025 4:55 PM CDT EXAM DESCRIPTION: CTA head and neck without and with contrast REASON FOR STUDY: 2 episodes, of unspecified duration per episode of head pressure, confusion, and right-sided head and neck pain over the past 1.5 weeks. No provided focal neurologic deficits. No provided history of trauma or inciting and/or aggravating events. History of esophageal cancer approximately 1 year ago without provided history of therapeutic interventions or metastatic disease burden. TECHNIQUE: Axial images were first obtained through the brain without contrast. Axial dynamic scanning technique with dynamic contrast enhancement through the intracranial and extracranial carotid and vertebral arteries. Multiplanar reconstruction. All stenosis measurements are based on NASCET criteria. 3D MIP images rendered on scanning unit and reviewed at time of interpretation. Automated exposure control was used as a dose optimization technique for this examination. CONTRAST TYPE/DOSE: 100 mL Optiray 350 injected via peripheral IV site without reported incident. COMPARISON: CT head without and with contrast 05/04/2024; CT head without contrast 11/23/2022; relevant portions of CT chest without contrast 07/17/2024. FINDINGS: BRAIN: No acute intra-axial hemorrhage. No edema, mass effect, midline shift, or herniation. No evidence of acute territorial ischemia or infarct. No suspicious focal white matter lesions with preservation of the giraldo-white junction. EXTRA-AXIAL SPACES: No extra-axial fluid collections. No unenhanced CT evidence of extra-axial mass. CALVARIUM: No acute calvarial fracture. SINUSES/MASTOIDS: No significant mucosal thickening no fluid levels of the paranasal sinuses. Mastoid air cells unchanged. ORBITS: No acute abnormality. Ocular lenses and globes normal in conformation and position. INTRACRANIAL VESSELS [place]: The anterior, middle, posterior cerebral arteries are all patent. No focal stenosis. No aneurysm. POSTERIOR CIRCULATION: The distal vertebral arteries are patent as is the basilar artery. No aneurysm. BRAIN: No gross evidence of enhancing intracranial lesions. CAROTID CTA RIGHT CAROTIDS: No occlusion, hemodynamically significant stenosis, or evidence of dissection of the right carotid arterial system. LEFT CAROTIDS: No occlusion, hemodynamically significant stenosis, or evidence of dissection of the left carotid arterial system. LEFT VERTEBRAL: Patent without evidence of stenosis or dissection. RIGHT VERTEBRAL: Patent without evidence of stenosis or dissection. AORTIC ARCH: Three-vessel aortic arch. Patent subclavian arteries. NECK SOFT TISSUE: No acute abnormality. No thyroid nodule greater than 1 cm. INCLUDED LUNGS: No acute abnormality. OTHER: No other significant finding. IMPRESSION: 1. No acute intracranial process. 2. No occlusion, focal stenosis, or aneurysm of the intracranial arterial vasculature. 3. No occlusion, hemodynamically significant stenosis, or dissection of the cervical arterial vasculature. . THIS IS AN ELECTRONICALLY VERIFIED FINAL REPORT 02/02/2025 4:55 PM - Electronically signed by Silver Conroy M.D. BEA: BEA Report ID: [id number] Reading Location: [place] [address] Procedure Note Silver Conroy MD - 02/02/2025 EXAM DESCRIPTION: CTA head and neck without and with contrast REASON FOR STUDY: 2 episodes, of unspecified duration per episode of head pressure, confusion, and right-sided head and neck pain over the past 1.5 weeks. No provided focal neurologic deficits. No provided history oftrauma or inciting and/or aggravating events. History of esophageal cancer approximately 1 year ago without provided history of therapeuticinterventions or metastatic disease burden. TECHNIQUE: Axial images were first obtained through the brain without contrast. Axial dynamic scanning technique with dynamic contrast enhancement throughthe intracranial and extracranial carotid and vertebral arteries. Multiplanar reconstruction. All stenosis measurements are based on NASCET criteria. 3D MIP images rendered on scanning unit and reviewed at time of interpretation. Automated exposure control was used as a dose optimization technique forthis examination. CONTRAST TYPE/DOSE: 100 mL Optiray 350 injected via peripheral IVsite without reported incident. COMPARISON: CT head without and with contrast 05/04/2024; CT headwithout contrast 11/23/2022; relevant portions of CT chest without contrast 07/17/2024. FINDINGS: BRAIN: No acute intra-axial hemorrhage. No edema, mass effect, midline shift, or herniation. No evidence of acute territorial ischemia orinfarct. No suspicious focal white matter lesions with preservation of thegray-white junction. EXTRA-AXIAL SPACES: No extra-axial fluid collections. No unenhanced CT evidence of extra-axial mass. CALVARIUM: No acute calvarial fracture. SINUSES/MASTOIDS: No significant mucosal thickening no fluid levels ofthe paranasal sinuses. Mastoid air cells unchanged. ORBITS: No acute abnormality. Ocular lenses and globes normal in conformation and position. INTRACRANIAL VESSELS [place]: The anterior, middle, posterior cerebral arteries areall patent. No focal stenosis. No aneurysm. POSTERIOR CIRCULATION: The distal vertebral arteries are patent as isthe basilar artery. No aneurysm. BRAIN: No gross evidence of enhancing intracranial lesions. CAROTID CTA RIGHT CAROTIDS: No occlusion, hemodynamically significant stenosis, or evidence of dissection of the right carotid arterial system. LEFT CAROTIDS: No occlusion, hemodynamically significant stenosis, or evidence of dissection of the left carotid arterial system. LEFT VERTEBRAL: Patent without evidence of stenosis or dissection. RIGHT VERTEBRAL: Patent without evidence of stenosis or dissection. AORTIC ARCH: Three-vessel aortic arch. Patent subclavian arteries. NECK SOFT TISSUE: No acute abnormality. No thyroid nodule greater than1 cm. INCLUDED LUNGS: No acute abnormality. OTHER: No other significant finding. IMPRESSION: 1. No acute intracranial process. 2. No occlusion, focal stenosis, or aneurysm of the intracranialarterial vasculature. 3. No occlusion, hemodynamically significant stenosis, or dissection ofthe cervical arterial vasculature. . THIS IS AN ELECTRONICALLY VERIFIED FINAL REPORT 02/02/2025 4:55 PM - Electronically signed by Silver Conroy M.D. BEA: BEA Report ID: [id number] Reading Location: [place] [address] Guanako Schofield MD IMG CT PROCEDURES Final Res ult * XR Chest 1 Vw Portable (02/02/2025 4:32 PM CDT) Anatomical Region Laterality Modality Body, Chest N/A Computed Radiogr aphy 02/02/2025 4:35 PM CDT Narrative 02/02/2025 4:37 PM CDT EXAM DESCRIPTION: XR CHEST 1 VIEW REASON FOR STUDY: Altered mental status Pt states that he has been having spells where he talks nonsense. Pt states it has been going on for a week and a half. Pt states that his doctor wanted him to come in. Pt states he gets head pressure, and then head and neck pain on the right side, and then he'll start talking about something that doesn't make sense. TECHNIQUE: Single radiographic view of the chest. COMPARISON: 10/26/2024 07/16/2024 07/17/2024 FINDINGS: Suboptimal evaluation due to patient positioning, rotation, and/or technique. Findings made within these confines. LINES/TUBES: None. LUNGS: New hazy confluent opacities of the bilateral perihilar lung. No pneumothorax or significant pleural effusion. HEART/MEDIASTINUM: Unchanged cardiomediastinal contours. Air-fluid level within the mediastinum likely related to esophagectomy with gastric pull-through seen on prior CT. BONES/SOFT TISSUES: No acute osseous abnormality. IMPRESSION: New bilateral perihilar opacities concerning for infection or edema in the appropriate clinical context. THIS IS AN ELECTRONICALLY VERIFIED FINAL REPORT 02/02/2025 4:37 PM - Electronically signed by Dru Baron M.D. NS: NS Report ID: [id number] Reading Location: [id number] Procedure Note Dru Baron MD - 02/02/2025 EXAM DESCRIPTION: XR CHEST 1 VIEW REASON FOR STUDY: Altered mental status Pt states that he has been having spells where he talks nonsense. Ptstates it has been going on for a week and a half. Pt states that his doctorwanted him to come in. Pt states he gets head pressure, and then head and neckpain on the right side, and then he'll start talking about something thatdoesn't make sense. TECHNIQUE: Single radiographic view of the chest. COMPARISON: 10/26/2024 07/16/2024 07/17/2024 FINDINGS: Suboptimal evaluation due to patient positioning, rotation, and/ortechnique. Findings made within these confines. LINES/TUBES: None. LUNGS: New hazy confluent opacities of the bilateral perihilar lung. No pneumothorax or significant pleural effusion. HEART/MEDIASTINUM: Unchanged cardiomediastinal contours. Air-fluidlevel within the mediastinum likely related to esophagectomy with gastric pull-through seen on prior CT. BONES/SOFT TISSUES: No acute osseous abnormality. IMPRESSION: New bilateral perihilar opacities concerning for infection or edema in the appropriate clinical context. THIS IS AN ELECTRONICALLY VERIFIED FINAL REPORT 02/02/2025 4:37 PM - Electronically signed by Dru Baron M.D. NS: NS Report ID: [id number] Reading Location: [id number] Guanako Schofield MD IMG XR PROCEDURES Final Res ult * Troponin T high-sensitivity series (baseline, 2hr, 4hr, 6hr) (02/02/2025 3:42 PM CDT) Trop T hs 11 <=22 ng/L [facility] ([place]) Comment: Interpretive Data For further hscTnT resources including the diagnostic algorithm and an aid in interpretation, copy and paste this link: https://nrl.testcatalog.org/show/hsTrop Current Interpretive Data last revised 2020. Blood 02/02/2025 3:42 PM CDT 02/02/2025 3:43 PM CDT Guanako Schofield MD LAB BLOOD ORDERABLES Final Result [facility] ([place]) 1 [facility] [place] [address] * (ABNORMAL) Sepsis Lactate w/ Reflex (02/02/2025 3:42 PM CDT) Pathologist [facility] Sepsis Lactate 3.5(H) 0.7 - 2.0 mmol/L Blood 02/02/2025 3:42 PM CDT 02/02/2025 3:47 PM CDT Guanako Schofield MD LAB BLOOD ORDERABLES Final Result LOUIS HAWKINS ([place]) 1 [facility] [place] [address] * IRVING ab ql w/rflx to IRVING qn (02/02/2025 3:42 PM CDT) [facility] IRVING Negative Comment: Interpretive Data Normal range for IRVING Qualitative Antibody = Negative. 1. IRVING is performed using indirect immunofluorescence against HEp-2 cells 2. IRVING titers are performed on all positive qualitative results. 3. A significantly positive IRVING result is defined as a positive nuclear fluorescence at a titer of 1:80 or greater. 4. 15% of normal people above age 65 have significantly positive IRVING results. 5% or less of normal people age 65 or under have significantly positive IRVING results. Current interpretive data was last revised on 2020. Testing performed by: [facility], 1 [facility], [place]., [address] Blood 02/02/2025 3:42 PM CDT 02/02/2025 6:35 PM CDT us Guanako Schofield MD LAB BLOOD ORDERABLES Final Result [facility] ([place]) 1 [facility] [place] [address] * Pro B-type natriuretic peptide (02/02/2025 3:42 PM CDT) Pathologist [facility] NT-proBNP <36 <=300 pg/mL LOUIS HAWKINS ([place]) Comment: Interpretive Comments: A. Dyspnea in Acute Care Setting All Ages: < 300 pg/ml, acute heart failure unlikely. < 50 yrs: 300 - 450 pg/ml, further investigation warranted. > 450 pg/ml, acute heart failure likely. 50 - 74 yrs: 300 - 900 pg/ml, further investigation warranted. > 900 pg/ml, acute heart failure likely . > or = 75 yrs: 450 - 1800 pg/ml, further investigation warranted. > 1800 pg/ml, acute heart failure likely. B. Non-acute Setting < 75 yrs < 125 pg/ml, rules out heart failure. > or = 125 pg/ml, further investigation warranted. > or = 75 yrs < 450 pg/ml, rules out heart failure. > or = 450 pg/ml, further investigation warranted. - Knowledge of each individual patient's NT-proBNP range may be more useful than using similar cut-points for every patient. Please note that marked elevations in NT-proBNP levels may be observed in state other than Left Ventricular Congestive Failure, including: acute coronary syndromes, right heart strain/failure (including pulmonary embolism and cor pulmonale), critical illness, renal failure, as well as advanced age. - References: 1. Gwendolyn MCWILLIAMS et.al. Eur Heart J. 2006:27:330-337. 2. Carl RW, Argueta AM. J. AM Damien Cardiol: Cardiovasc Imag. 2009;2: 216- 225. Interpretive Data Last Revised Date: 2017. Blood 02/02/2025 3:42 PM CDT 02/02/2025 3:43 PM CDT Guanako Schofield MD LAB BLOOD ORDERABLES Final Result [facility] [place]) 8 [facility] [place] [address] * RPR Blood (02/02/2025 3:42 PM CDT) RPR Nonreactive Nonreactive Comment:Testing performed by : [facility], [address] [place] [address], [place] [address] Blood 02/02/2025 3:42 PM CDT 02/02/2025 6:10 PM CDT Guanako Schofield MD LAB MICROBIOLOGY - GENERAL ORDERABLES Final Result Performing Organization Address City/[facility]/ZIP Co de Phone Number LOUIS HAWKINS ([place]) 1 [place] [address] * (ABNORMAL) Erythrocyte sedimentation rate (02/02/2025 3:42 PM CDT) Erythrocyte sedimentation rate 36(H) 1 - 20 mm/hr Blood 02/02/2025 3:42 PM CDT 02/02/2025 3:43 PM CDT Guanako Schofield MD LAB BLOOD ORDERABLES Final Result Performing Organization Address [facility] Co de Phone Number LOUIS HAWKINS ([place]) 1 [place] [address] * (ABNORMAL) CRP (acute phase) (02/02/2025 3:42 PM CDT) CRP 13.6(H) <=10.0 mg/L LOUIS Shipley ([place]) Blood 02/02/2025 3:42 PM CDT 02/02/2025 3:43 PM CDT Guanako Schofield MD LAB BLOOD ORDERABLES Final Result Performing Organization Address [facility] Co de Phone Number LOUIS HAWKINS ([place]) 1 [facility] [place] [address] * ECG 12 lead (02/02/2025 3:38 PM CDT) 02/02/2025 3:38 PM CDT Narrative [facility] - 02/03/2025 10:33 AM CDT Vent Rate: 106 bpm RR Interval: 564 msec VA Interval: 145 msec QRS Duration: 88 msec QT Interval: 370 msec QTC Interval: 432 msec P-R-T [place]: 33 - 24 - -14 degrees IMPRESSION: SINUS TACHYCARDIA NONSPECIFIC T-WAVE ABNORMALITY ABNORMAL RHYTHM ECG NO CHANGE FROM PREVIOUS TRACING NOTED Electronically Signed By: Shahab Rdz MD us Guanako Schofield MD ECG ORDERABLES Final Resul t [facility] * eGFR (02/02/2025 3:26 PM CDT) eGFR 73 >=60 mL/min/1. 73 m2 Comment: Interpretive Data Reference Interval Normal >/= 90 mL/min/1.73m2 Mildly decreased* 60 - 89 mL/min/1.73m2 Mildly to moderately decreased 45 - 59 mL/min/1.73m2 Moderately to severely decreased 30 - 44 mL/min/1.73m2 Severely decreased 15 - 29 mL/min/1.73m2 Kidney Failure < 15 mL/min/1.73m2 *Relative to young adult level Estimated glomerular filtration rate is determined by the 2020 CKD-EPI equation recommended by the National Kidney Foundation (A Unifying Approach to GFR Estimation: Recommendations of the NKF-ASK Task Force on Reassessing the Inclusion of Race in Diagnosing Kidney Disease, JASN 2020). The CKD-EPI equation should not be used for patients with unstable renal function and has not been validated in children and those over 70. Current interpretive data was last reviewed 2021. Blood 02/02/2025 3:26 PM CDT 02/02/2025 3:29 PM CDT us Guanako Schofield MD LAB BLOOD ORDERABLES Final Result [facility] ([place]) 1 [facility] [place] [address] * Differential, auto (02/02/2025 3:26 PM CDT) Neutrophil abs 5.69 1.50 - 6.50 K/cumm Imm gran abs 0.05 0.00 - 0.10 K/cumm [facility] ([place]) Lymphocyte abs 2.24 0.80 - 3.30 K/cumm [facility] ([place]) Monocyte abs 0.24 0.20 - 0.80 K/cumm [facility] ([place]) Eosinophil abs 0.27 0.00 - 0.50 K/cumm [facility] ([place]) Basophil abs 0.07 0.00 - 0.10 K/cumm [facility] ([place]) Neutrophil pct 66.4 % [facility] R [facility] ([place]) Comment: Interpretive Data Percent cell count reference ranges are not reported, since discordance with absolute values may lead to misinterpretation of CBC data. Current Interpretive Data was last revised on 2017. Imm gran pct 0.6 % [facility] ([place]) Comment: Interpretive Data Percent cell count reference ranges are not reported, since discordance with absolute values may lead to misinterpretation of CBC data. Current Interpretive Data was last revised on 2017. Lymphocyte pct 26.2 % [facility] ([place]) Comment: Interpretive Data Percent cell count reference ranges are not reported, since discordance with absolute values may lead to misinterpretation of CBC data. Current Interpretive Data was last revised on 2017. Monocyte pct 2.8 % [facility] ([place]) Comment: Interpretive Data Percent cell count reference ranges are not reported, since discordance with absolute values may lead to misinterpretation of CBC data. Current Interpretive Data was last revised on 2017. Eosinophil pct 3.2 % [facility] ([place]) Comment: Interpretive Data Percent cell count reference ranges are not reported, since discordance with absolute values may lead to misinterpretation of CBC data. Current Interpretive Data was last revised on 2017. Basophil pct 0.8 % [facility] ([place]) Comment: Interpretive Data Percent cell count reference ranges are not reported, since discordance with absolute values may lead to misinterpretation of CBC data. Current Interpretive Data was last revised on 2017. Blood 02/02/2025 3:26 PM CDT 02/02/2025 3:29 PM CDT us Guanako Schofield MD LAB BLOOD ORDERABLES Final Result [facility] ([place]) 1 [facility] [place] [address] * (ABNORMAL) CBC with auto differential (02/02/2025 3:26 PM CDT) WBC 8.56 3.80 - 9.90 K/cumm Hgb 14.2 13.0 - 17.5 g/dL [facility] Hct 44.8 38.9 - 50.3 % [facility] ([place] Plt 278 150 - 400 K/cumm [facility] ([place] MPV 9.7 9.1 - 12.3 fL [facility] ([place] RBC 4.63 4.30 - 5.80 M/cumm [facility] MCV 96.8(H) 81.3 - 96.4 fL [facility] ([place] MCH 30.7 27.1 - 33.3 pg [facility] ([place] MCHC 31.7(L) 32.3 - 35.7 g/dL [facility] ([place] RDW CV 14.5 11.1 - 14.9 % [facility] RDW SD 51.8(H) 35.7 - 48.1 fL [facility] ([place] NRBC abs 0.00 0.00 - 0.01 K/cumm [facility] ([place] Blood 02/02/2025 3:26 PM CDT 02/02/2025 3:29 PM CDT Guanako Schofield MD LAB BLOOD ORDERABLES Final Result LOUIS HAWKINS ([place]) 1 [facility] [place] [address] * (ABNORMAL) aPTT (02/02/2025 3:26 PM CDT) aPTT 51(H) 26 - 38 sec [facility] ([place]) Comment: Interpretive Data Heparin therapeutic range: 66.0 - 100.0 seconds. Range based on correlation with therapeutic heparin activity range of 0.3 - 0.7 Units/mL. Current interpretive data was last revised on 2023. Blood 02/02/2025 3:26 PM CDT 02/02/2025 3:42 PM CDT Guanako Schofield MD LAB BLOOD ORDERABLES Final Result Performing Organization Address City/[facility]/ZIP Co de Phone Number LOUIS BROWNN) 1 [facility] [place] [address] * (ABNORMAL) Protime-INR (02/02/2025 3:26 PM CDT) PT 14.4(H) 10.2 - 13.5 sec [facility] ([place]) INR 1.28(H) 0.90 - 1.20 [facility] ([place]) Comment: Interpretive data Oral anticoagulant therapeutic ranges: Venous thromboembolism prophylaxis or treatment: 2.0-3.0 CARDIOLOGY Standard range: 2.0-3.0 High-intensity range: 2.5-3.5 Refer to indication-specific guidelines for appropriate target ranges for prosthetic heart valve replacement. Current interpretive data was last revised on 2019. Blood 02/02/2025 3:26 PM CDT 02/02/2025 3:42 PM CDT Guanako Schofield MD LAB BLOOD ORDERABLES Final Result Performing Organization Address City/[facility] Co de Phone Number LOUIS MercadoET[place]) 1 [facility] [place] [address] * (ABNORMAL) Comprehensive metabolic panel (02/02/2025 3:26 PM CDT) Sodium 139 135 - 145 mmol/L [facility] ([place]) Potassium, pl 3.3 3.3 - 4.9 mmol/L [facility] ([place]) Chloride 102 97 - 110 mmol/L [facility] ([place]) CO2 24 22 - 32 mmol/L [facility] ([place]) Anion gap 13 2 - 15 mmol/L [facility] ([place]) BUN 9 6 - 25 mg/dL [facility] ([place]) Creatinine 1.12 0.80 - 1.30 mg/dL [facility] ([place]) Glucose 256(H) 70 - 199 mg/dL [facility] ([place]) Comment: Interpretive Data Fasting glucose >/= 126 mg/dl is diagnostic for diabetes. Fasting is defined as no caloric intake for at least 8 hours. Fasting glucose between 100 mg/dl to 125 mg/dl is diagnostic of prediabetes. In a patient with classic symptoms of hyperglycemia or hyperglycemic crisis, a random glucose >/= 200 mg/dl is diagnostic for diabetes. In the absence of unequivocal hyperglycemia, results should be confirmed by repeat testing. The classification and Diagnosis of Diabetes Diabetes Care 2021; 46: S19-S40. Current interpretive data was last revised 2022. Calcium 9.5 8.5 - 10.3 mg/dL [facility] ([place]) Bilirubin, total 0.3 0.1 - 1.2 mg/dL [facility] ([place]) Protein, pl 6.9 6.5 - 8.5 g/dL [facility] ([place]) Albumin 4.1 3.5 - 5.0 g/dL [facility] ([place]) Alk phos 91 40 - 130 Units/L [facility] ([place]) ALT 23 7 - 55 Units/L [facility] ([place]) AST 24 10 - 50 Units/L [facility] ([place]) Blood 02/02/2025 3:26 PM CDT 02/02/2025 3:29 PM CDT Guanako Schofield MD LAB BLOOD ORDERABLES Final Result [facility] ([place]) 1 [facility] [place] [address] * US Abdominal Aortic Aneurysm Screening (12/15/2024 10:54 AM CDT) Anatomical Region Laterality Modality Abdomen Ultrasound 12/22/2024 4:59 PM CDT Narrative 12/22/2024 5:00 PM CDT EXAM DESCRIPTION: US ABDOMINAL AORTIC ANEURYSM SCREENING REASON FOR STUDY: Preventative screening AAA screening, hx of tobacco use, hyperlipidemia, hypertension, diabetes TECHNIQUE: Grayscale images acquired of the aorta and stored on PACS. Selected color Doppler and spectral images recorded. COMPARISON: None FINDINGS: AORTIC CALIBER MAXIMAL PROXIMAL: 2.5 x 2.5 cm. MID: 1.6 x 1.5 cm. DISTAL: 1.5 x 1.4 cm. ILIAC DIAMETER RIGHT: 1.1 x 1.1 cm. LEFT: 0.9 x 0.8 cm. OTHER: No other significant finding. IMPRESSION: No abdominal aortic aneurysm. REFERENCE: Please see below follow up recommendations for abdominal aortic aneurysm surveillance per Society for Vascular Surgery Guidelines: < 2.6 cm No follow up or future screenings necessary 2.62.9 cm Recommended ultrasound follow up every 5 years 3.0-3.4 cm Recommended ultrasound follow up every 3 years 3.5-3.9 cm Recommended ultrasound follow up every 12 months 4.0-4.9 cm Recommended ultrasound follow up every 12 months, vascular surgery consult 5.0-5.4 cm Recommended ultrasound follow up every 6 months, vascular surgery consult >= 5.5 cm Referral to vascular surgeon Based upon Society for Vascular Surgery Guidelines: J Vasc Surgery 2008 50: s2-s49; updated May 2017 J Vasc Surgery 67:2-77 THIS IS AN ELECTRONICALLY VERIFIED FINAL REPORT 12/22/2024 5:00 PM - Electronically signed by Sathya Rangel M.D. JR: Report ID: [id number] Reading Location: [id number] Procedure Note Sathya Rangel MD - 12/22/2024 EXAM DESCRIPTION: US ABDOMINAL AORTIC ANEURYSM SCREENING REASON FOR STUDY: Preventative screening AAA screening, hx of tobacco use, hyperlipidemia, hypertension, diabetes TECHNIQUE: Grayscale images acquired of the aorta and stored on PACS.Selected color Doppler and spectral images recorded. COMPARISON: None FINDINGS: AORTIC CALIBER MAXIMAL PROXIMAL: 2.5 x 2.5 cm. MID: 1.6 x 1.5 cm. DISTAL: 1.5 x 1.4 cm. ILIAC DIAMETER RIGHT: 1.1 x 1.1 cm. LEFT: 0.9 x 0.8 cm. OTHER: No other significant finding. IMPRESSION: No abdominal aortic aneurysm. REFERENCE: Please see below follow up recommendations for abdominal aortic aneurysm surveillance per Society for Vascular Surgery Guidelines: < 2.6 cm No follow up or future screenings necessary 2.62.9 cm Recommended ultrasound follow up every 5 years 3.0-3.4 cm Recommended ultrasound follow up every 3 years 3.5-3.9 cm Recommended ultrasound follow up every 12 months 4.0-4.9 cm Recommended ultrasound follow up every 12 months, vascularsurgery consult 5.0-5.4 cm Recommended ultrasound follow up every 6 months, vascularsurgery consult >= 5.5 cm Referral to vascular surgeon Based upon Society for Vascular Surgery Guidelines: J Vasc Surgery 2009Oct 50: s2-s49; updated May 2017 J Vasc Surgery 67:2-77 THIS IS AN ELECTRONICALLY VERIFIED FINAL REPORT 12/22/2024 5:00 PM - Electronically signed by Sathya Rangel M.D. JR: Report ID: [id number] Reading Location: [place] [address] [place] Georgiana Rodriguez MD [facility] PROCEDURES Final Resul t * Glucose 6 phosphate dehydrogenase, quantitative (04/08/2024 1:57 PM CLIENT SERVICES ACCOUNT MANAGER) G6PD, quant 10.6 8.0 - 11.9 units/g hb [facility] Comment: The G6PD activity level is expected to be decreased in the setting of G6PD deficiency. However, G6PD enzyme activity levels can be increased in the setting of reticulocytosis or markedly elevated WBCs. Clinical correlation is required to establish if there is a possibility of a masked G6PD deficiency, particularly in the setting of , chronic, or episodic jaundice/anemia. In addition, enzyme testing is not reliable in the setting of recent red cell transfusion. If desired, genotyping is available G6PDZ/ G6PD Full Gene Sequencing, V. ADDITIONAL INFORMATION This test was developed and its performance characteristics determined by [facility] in a manner consistent with CLIA requirements. This test has not been cleared or approved by the U.S. Food and Drug Administration. Test Performed by: [address] [address] Tapper Supervisor: Elissa Damon Ph.D.; CLIA# [id number] Blood 04/08/2024 1:57 PM CLIENT SERVICES ACCOUNT MANAGER 04/08/2024 3:11 PM CLIENT SERVICES ACCOUNT MANAGER us Georgiana Rodriguez MD LAB BLOOD ORDERABLES Final Re sult WILEYERIC HAWKINS ([place]) 1 [facility] [place] [address] [facility] * Lipid panel (04/08/2024 1:57 PM CLIENT SERVICES ACCOUNT MANAGER) Cholesterol 162 30 - 199 mg/dL Comment: Interpretive Data Ages < or = 19 years Acceptable: <170 mg/dL Borderline high: 170-199 mg/dL High: >or= 200 mg/dL Ages > or = 20 years Desirable: <200 mg/dL Borderline high: 200-239 mg/dL High: >or= 240 mg/dL Literature References: 1. Expert Panel on Integrated Guidelines for Cardiovascular Health and Risk Reduction in Children and Adolescents. Pediatrics 2011;128:S213 2. NCEP Expert Panel. Circulation 2004;110:227 Current Interpretive Data was last revised on 2017. Triglycerides 99 <=149 mg/dL LOUIS HAWKINS ([place]) Comment: Interpretive Data Ages < or = 9 years Acceptable: <75 mg/dL Borderline high: 75-99 mg/dL High: >or= 100 mg/dL Ages 10 to 20 years Acceptable: <90 mg/dL Borderline high: 90-129 mg/dL High: >or= 130 mg/dL Ages > or = 20 years Desirable: <150 mg/dL Borderline high: 150-199 mg/dL High: 200-499 mg/dL Very high: >or= 499 mg/dL Literature References: 1. Expert Panel on Integrated Guidelines for Cardiovascular Health and Risk Reduction in Children and Adolescents. Pediatrics 2011;128:S213 2. NCEP Expert Panel. Circulation 2004;110:227 Current Interpretive Data was last revised on 2017. HDL 83 >=40 mg/dL LOUIS Shay ([place]) Comment: Interpretive Data Ages < or = 19 years Acceptable: >45 mg/dL Borderline low: 40-45 mg/dL Low: <40 mg/dL Ages > or = 20 years Desirable: >or= 60 mg/dL Low: <40 mg/dL Literature References: 1. Expert Panel on Integrated Guidelines for Cardiovascular Health and Risk Reduction in Children and Adolescents. Pediatrics 2011;128:S213 2. NCEP Expert Panel. Circulation 2004;110:227 Current Interpretive Data was last revised on 2017. LDL, calculated 61 <=129 mg/dL LOUIS HAWKINS ([place]) Comment: Interpretive Data Ages < or = 19 years Acceptable: <110 mg/dL Borderline high: 110-129 mg/dL High: >or= 130 mg/dL Ages > or = 20 years Optimal: <100 mg/dL Near optimal: 100-129 mg/dL Borderline high: 130-159 mg/dL High: >160 mg/dL Calculated using the Virgilio LDL-C estimating equation. This equation was implemented on 2024. Prior to this date LDL-C was estimated using the Friedewald equation. Literature References: 1. Expert Panel on Integrated Guidelines for Cardiovascular Health and Risk Reduction in Children and Adolescents. Pediatrics 2011;128:S213 2. NCEP Expert Panel. Circulation 2004;110:227 3. Virgilio M et al. ELAN Cardiol. 2020 September 10;5(5):540-548. doi: 10.1001/jamacardio.2020.0013 Current Interpretive Data was last revised on 2024. Non-HDL Cholesterol 79 mg/dL LOUIS HAWKINS ([place]) Comment: Interpretive Data Ages < or = 19 years Acceptable: <120 mg/dL Borderline high: 120-144 mg/dL High: >145 mg/dL Ages > or = 20 years When triglycerides are >200 mg/dL, Non-HDL cholesterol is a secondary target of therapy with treatment goals that are 30 mg/dL greater than the LDL cholesterol target. Literature References: 1. Expert Panel on Integrated Guidelines for Cardiovascular Health and Risk Reduction in Children and Adolescents. Pediatrics 2011;128:S213 2. NCEP Expert Panel. Circulation 2004;110:227 Current Interpretive Data was last revised on 2017. Chol/HDL ratio 2 SANAZ MAURICIO) Blood 04/08/2024 1:57 PM CLIENT SERVICES ACCOUNT MANAGER 04/08/2024 2:07 PM CLIENT SERVICES ACCOUNT MANAGER Georgiana Rodriguez MD LAB BLOOD ORDERABLES Final Re sult LOUIS HAWKINS ([place]) 1 [facility] [place] [address] * TB test, quantiferon gold (01/07/2024 1:54 PM CDT) [facility] QuantiFERON(R)-T B Gold Plus, 1 Tube NEGATIVE NEGATIVE [facility] Comment: Negative test result. M. tuberculosis complex infection unlikely. NIL 0.07 IU/mL [facility] MITOGEN-NIL >10.00 IU/mL [facility] TB1-NIL <0.00 IU/mL [facility] TB2-NIL <0.00 IU/mL [facility] Comment: The Nil tube value reflects the background interferon gamma immune response of the patient's blood sample. This value has been subtracted from the patient's displayed TB and Mitogen results. Lower than expected results with the Mitogen tube prevent false-negative Quantiferon readings by detecting a patient with a potential immune suppressive condition and/or suboptimal pre-analytical specimen handling. The TB1 Antigen tube is coated with the M. tuberculosis-specific antigens designed to elicit responses from TB antigen primed CD4+ helper T-lymphocytes. The TB2 Antigen tube is coated with the M. tuberculosis-specific antigens designed to elicit responses from TB antigen primed CD4+ helper and CD8+ cytotoxic T-lymphocytes. For additional information, please refer to https://education.[employer]faq/BQV294 (This link is being provided for informational/ educational purposes only.) Blood 01/07/2024 1:54 PM CDT 01/07/2024 1:55 PM CDT Narrative [facility] - 01/14/2024 10:22 AM CDT FASTING:NO FASTING: NO Georgiana Rodriguez MD LAB BLOOD ORDERABLES Final Re sult [facility] [address] [place] [address] * Hepatitis C antibody Blood (01/07/2024 1:54 PM CDT) [facility] Hep C Ab NON-REACTI VE NON-REACT GERMAN [facility] Comment: HCV antibody was non-reactive. There is no laboratory evidence of HCV infection. In most cases, no further action is required. However, if recent HCV exposure is suspected, a test for HCV RNA (test code 33558) is suggested. For additional information please refer to http://education.[employer]/faq/WHN59z5 (This link is being provided for informational/ educational purposes only.) Blood 01/07/2024 1:5 4 PM CDT 01/07/2024 1:55 PM CDT Narrative [facility] - 01/14/2024 10:22 AM CDT FASTING:NO FASTING: NO Georgiana Rodriguez MD LAB MICROBIOLOGY - GENERAL OR DERABLES Final Result MANAS [facility] [address] [place] [address] * (ABNORMAL) Hemoglobin A1c (01/07/2024 1:54 PM CDT) [facility] Hgb A1C 6.1(H) <5.7 % of total Hgb [facility] Comment: For someone without known diabetes, a hemoglobin A1c value between 5.7% and 6.4% is consistent with prediabetes and should be confirmed with a follow-up test. For someone with known diabetes, a value <7% indicates that their diabetes is well controlled. A1c targets should be individualized based on duration of diabetes, age, comorbid conditions, and other considerations. This assay result is consistent with an increased risk of diabetes. Currently, no consensus exists regarding use of hemoglobin A1c for diagnosis of diabetes for children. This test was performed on the Eric ankit c503 platform. Effective 07/29/23, a change in test platforms from the [employer]ass Pourer to the Eric ankit c503 may have shifted HbA1c results compared to historical results. Based on laboratory validation testing conducted at [facility], the Eric platform relative to the Avery platform had an average increase in HbA1c value of < or = 0.3%. This difference is within accepted variability established by the National Glycohemoglobin Standardization Program. Note that not all individuals will have had a shift in their results and direct comparisons between historical and current results for testing conducted on different platforms is not recommended. Blood 01/07/2024 1:54 PM CDT 01/07/2024 1:55 PM CDT Narrative [facility] - 01/14/2024 10:22 AM CDT FASTING:NO FASTING: NO us Georgiana Rodriguez MD LAB BLOOD ORDERABLES Final Re sult [facility] [address] [place] [address] * COLONOSCOPY (05/22/2023 9:25 AM CLIENT SERVICES ACCOUNT MANAGER) Anatomical Region Laterality Modality Other Narrative Procedure Note Xochitl Nails MD - 05/22/2023 9:25 AM CST ENDOSCOPY LAB Patient Name: Eliel Abbasi Procedure Date: 05/22/2023 9:25 AM Date of : 1960 Admit Type: Outpatient Age: 63 Gender: Male Attending MD: Xochitl Nails M.D. Room: [facility] ENDOSCOPY ROOM 05 Note Status: Finalized Procedure: Colonoscopy Indications: Surveillance: History of numerous (> 10) adenomason last colonoscopy (< 3 yrs), Surveillance: Historyof adenomatous polyps, inadequate prep on last exam (<3yr), Last colonoscopy: February 2022 Providers: Xochitl Nails M.D. Referring MD: Georgiana Rodriguez M.D. Medicines: Monitored Anesthesia Care Complications: No immediate complications. Estimated Blood Loss: Estimated blood loss: none. Procedure: Pre-Anesthesia Assessment: - Immediately prior to administration ofmedications, the patient was re-assessed for adequacy to receive sedatives. The benefits, risks and alternatives of theprocedure and sedation were discussed and informed consentwas obtained. All questions were answered. Please referto the signed informed consent document in the medical record. The scope was passed under direct vision.The [id number] was introduced through the anusand advanced to the cecum, identified by appendiceal orifice and ileocecal valve. The colonoscopy was somewhat difficult due to restricted mobility ofthe colon and significant looping. Successfulcompletion of the procedure was aided by lavage and using a Colowrap. The patient tolerated the procedure well. The quality of the bowel preparation was evaluated using the BBPS (Houston Bowel Preparation Scale)with scores of: Right Colon = 2 (minor amount ofresidual staining, small fragments of stool and/or opaque liquid, but mucosa seen well), Transverse Colon = 2 (minor amount of residual staining, small fragmentsof stool and/or opaque liquid, but mucosa seen well)and Left Colon = 2 (minor amount of residual staining, small fragments of stool and/or opaque liquid, but mucosa seen well). The total BBPS score equals 6.The quality of the bowel preparation was good. Bowelprep was administered using a split dose. Findings: Three sessile polyps were found in the transverse colon. The polypswere 4 to 6 mm in size. These polyps were removed with a cold snare. Resection and retrieval were complete. Two sessile polyps were found in the cecum. The polyps were 3 to 5 mmin size. These polyps were removed with a cold snare. Resection and retrieval were complete. Five pedunculated and sessile polyps were found in the ascendingcolon. The polyps were 4 to 12 mm in size. These polyps were removed with a cold snare and hot snare. Resection and retrieval were complete. A 5 mm polyp was found in the descending colon. The polyp wassessile. The polyp was removed with a cold snare. Resection and retrieval were complete. A 5 mm polyp was found in the sigmoid colon. The polyp was sessile.The polyp was removed with a cold snare. Resection and retrieval were complete. Impression: - Three 4 to 6 mm polyps in the transverse colon, removed with a cold snare. Resected andretrieved. - Two 3 to 5 mm polyps in the cecum, removed with a cold snare. Resected and retrieved. - Five 4 to 12 mm polyps in the ascending colon, removed with a cold snare. Resected andretrieved. - One 5 mm polyp in the descending colon, removedwith a cold snare. Resected and retrieved. - One 5 mm polyp in the sigmoid colon, removed witha cold snare. Resected and retrieved. Recommendation: - Repeat colonoscopy in 1 year for surveillance of multiple polyps. Extended prep and Colowrap. - . Attending Participation: I personally performed the entire procedure. Electronically signed by Xochitl Nails MD Xochitl Nails M.D. 05/22/2023 10:52:26 AM Number of Addenda: 0 Note Initiated On: 05/22/2023 9:25 AM us Xochitl Nails MD ENDOSCOPY PROCEDURES Final Res ult * Dexa Axial Skeleton Bone Density 1 or 2 Site (01/10/2022 11:43 AM CDT) Anatomical Region Laterality Modality Body N/A Other 01/10/2022 6:33 PM CDT Narrative 01/10/2022 6:34 PM CDT EXAM DESCRIPTION: DEXA AXIAL SKELETON BONE DENSITY 1 OR MORE SITES REASON FOR STUDY: 61 y/o year old M with given history of screening. Postmenopausal Flarer/Model: [employer] (S/N [id number]) CLINICAL INFORMATION: Current height: 67.5 inches Maximum height: 67.5 inches Weight: 158 pounds Risk factors: Postmenopausal COMPARISON: None available. FINDINGS: AP LUMBAR SPINE L1-L4: Total BMD is 0.890 g/cm2 T-score is -1.4 LEFT HIP: Total BMD is 0.916 g/cm2 T-score is -0.2 Femoral neck BMD is 0.766 g/cm2 T-score is -0.7 FRAX: 10 year risk for a major osteoporotic fracture is 5.5 %, 10 year risk for a hip fracture is 0.6 % IMPRESSION: Based on the lumbar spine bone mineral density (T-score -1.4 ) the patient has low bone mass . REFERENCE: Bone mineral density: Normal (T-score above or = -1.0) Low bone mass (T-score between -1.0 and -2.5) replaces the previously used term osteopenia Osteoporosis (T-score = or below -2.5) Medical evaluation for secondary causes of low bone mineral density may be appropriate. FRAX is a World Health Organization validated fracture risk assessment tool that calculates a person's 10 year probability of a major osteoporosis related fracture and hip fracture. According to the National Osteoporosis Foundation guidelines, postmenopausal women and men age 50 or older with low bone mass and a 10 year probability of a major osteoporosis related fracture = or greater than 20% or a 10 year probability of a hip fracture = or greater than 3% should be considered for treatment. For further information, including treatment recommendations, please refer to the 2013 ISCD Official Positions (http://www.iscd.org) and the NOF's Clinician's Guide to Prevention and Treatment of Osteoporosis (http://www.nof.org/professionals/clinical-guidelines) THIS IS AN ELECTRONICALLY VERIFIED FINAL REPORT 01/10/2022 6:34 PM - Electronically signed by Chapin Rivero M.D. MF: [email or web address] Report ID: [id number] Reading Location: [address] Note Chapin Rivero MD - 01/10/2022 EXAM DESCRIPTION: DEXA AXIAL SKELETON BONE DENSITY 1 OR MORE SITES REASON FOR STUDY: 61 y/o year old M with given history ofscreening. Postmenopausal Flarer/Model: [employer] (S/N [id number]) CLINICAL INFORMATION: Current height: 67.5 inches Maximum height: 67.5 inches Weight: 158 pounds Risk factors: Postmenopausal COMPARISON: None available. FINDINGS: AP LUMBAR SPINE L1-L4: Total BMD is 0.890 g/cm2 T-score is -1.4 LEFT HIP: Total BMD is 0.916 g/cm2 T-score is -0.2 Femoral neck BMD is 0.766 g/cm2 T-score is -0.7 FRAX: 10 year risk for a major osteoporotic fracture is 5.5 %, 10 year risk fora hip fracture is 0.6 % IMPRESSION: Based on the lumbar spine bone mineral density (T-score -1.4 ) the patient has low bone mass . REFERENCE: Bone mineral density: Normal (T-score above or = -1.0) Low bone mass (T-score between -1.0 and -2.5) replaces thepreviously used term osteopenia Osteoporosis (T-score = or below -2.5) Medical evaluation for secondary causes of low bone mineral density may be appropriate. FRAX is a World Health Organization validated fracture risk assessmenttool that calculates a person's 10 year probability of a major osteoporosisrelated fracture and hip fracture. According to the National OsteoporosisFoundation guidelines, postmenopausal women and men age 50 or older with low bonemass and a 10 year probability of a major osteoporosis related fracture = or greater than 20% or a 10 year probability of a hip fracture = or greaterthan 3% should be considered for treatment. For further information, including treatment recommendations, please referto the 2013 ISCD Official Positions (http://www.iscd.org) and the NOF's Clinician's Guide to Prevention and Treatment of Osteoporosis (http://www.nof.org/professionals/clinical-guidelines) THIS IS AN ELECTRONICALLY VERIFIED FINAL REPORT 01/10/2022 6:34 PM - Electronically signed by Chapin Rivero M.D. MF: [email or web address] Report ID: [id number] Reading Location: [id number] Georgiana Rodriguez MD IMG DXA PROCEDURES Final Resu lt * HLA-B*5701 TYPING (12/25/2016 12:25 PM CDT) HLA B*5701 TYPING Negative [facility] Comment: The allele HLA-B*5701 is associated with Abacavir hypersensitivity reaction (HSR). A negative result for HLA-B*5701 does not rule out the possibility of Abacavir HSR. Genetic counseling as needed. RESULTS REVIEWED BY: Edith Harding, Ph.D.,[facility] Director, Molecular Genetics References: Natasha Green, et al. Lancet. 2002 2:359(1038): 72-32 Natasha Green et al. N Engl J Med. 2008 358(7): 568-79 Typing performed by using -PCR with reflex to the FDA-cleared LABType(R) SSO Kit. The -PCR portion of this test was developed and its analytical performance characteristics have been determined by [facility] [place], [place]. It has not been cleared or approved by the U.S. Food and Drug Administration. This assay has been validated pursuant to the CLIA regulations and is used for clinical purposes. 12/25/2016 12:2 5 PM CDT 12/25/2016 12:32 PM CDT Narrative [facility] - 01/03/2017 1:17 PM CDT FASTING:NO Resulting Agency Comment Performing Organization Information: Site ID: [facility] Name: [facility] Address: [address] [place] [id number] Director: Maximino Cruz M.D.,PhD Georgiana Rodriguez MD LAB BLOOD ORDERABLES Final Re sult [facility] [place], [place] from Last 3 Months or Most Recently Relevant to Health Maintenance Insurance [facility] MEDICARE [facility] Address: [address] [address] [place] [address] [facility] MEDICARE ADVANTAGE IDPA [facility] MEDICARE ADVANTAGE IDPA Advance Directives For more information, please contact: [phone] * Full Code (Latest Code Status on File) Date Activated Date Inactivated Comments 02/02/2025 8:13 PM 02/04/2025 7:10 PM * Full Code Date Activated Date Inactivated Comments 10/27/2024 1:36 AM 10/30/2024 8:14 PM * Full Code Date Activated Date Inactivated Comments 10/06/2024 7:23 PM 10/07/2024 2:52 PM * Full Code Date Activated Date Inactivated Comments 08/20/2024 1:12 PM 08/20/2024 10:39 PM * Full Code Date Activated Date Inactivated Comments 08/18/2024 3:17 PM 08/20/2024 1:12 PM Care Teams Meter/Relay Craftsman Relationship Specialty Start Date End Date Georgiana Rodriguez MD [address] [place] [address] PCP - General 10/12/14 Ro Kirby MD [address] [place] [address] Consulting Physician Cardiovascular Disease 12/25/16 Nava Xiao MD [address] [place] [address] Consulting Physician Anesthesiology 12/25/16 Tianna Richards MD [address] [place] [address] Consulting Physician Gastroenterology 12/25/16 Jaylen Lau MD [address] [place] [address] Consulting Physician Plastic Surgery 04/16/17 Betzaida Oviedo NP [address] [place] [address] Nurse Practitioner Pain Management 09/13/18 Ramone Lafleur NP [address] [place] [address] Nurse Practitioner Pain Management 10/27/19 [place] [address] [address] Consulting Physician Plastic Surgery 11/17/20 Xochitl Nails MD [address] [place] [address] Referring Physician Gastroenterology 02/28/22 Bryan Pierson MD [address] [place] [address] [place] [address] Consulting Physician Pulmonary Disease 10/31/22 Eron Mast MD [address] [place] [address] [place] [address] Consulting Physician Cardiology 01/21/23 Francesco Kam NP [address] [place] [address] [place] [address] Nurse Practitioner Cardiovascular Disease 12/27/22 Khadra Cavazos NP [address] [place] [address] [place] [address] Nurse Practitioner Cardiothoracic Surgery 08/14/23 Michele Monroe MD [address] [address] Consulting Physician Infectious Diseases 07/15/24 Nir Hastings MD [address] [address] Consulting Physician Otolaryngology 07/27/24 Siobhan Walls, CODE AND TEST CLERK [address] [place] [address] [place] [address] Nurse Practitioner Pulmonary Disease 10/01/24
--- OUTSIDE RECORDS SUMMARY | 2025-04-06 18:01 | XMS_ITS | Encounter Summary ---
Author Organization [facility] Address [address] [place] [address] Phone Care Team Providers Care Nurse Healthcare Manager Name Role Phone Aldair Rodriguez MD Primary Care Provider [phone] Ro Kirby MD Unavailable [phone] Nava Xiao MD Unavailable [phone] Tianna Richards MD Unavailable [phone] Jaylen Lau MD Unavailable [phone] Betzaida Oviedo SLOPE RUNNER Unavailable [phone] Kimani Shukla MD Unavailable Ramone Lafleur NP Unavailable [phone] Bre Nieto MD Unavailable Xochitl Nails MD Unavailable [phone] Bryan Pierson MD Unavailable Angy-Eron Mcgill MD Unavailable [phone] Francesco Kam SLOPE RUNNER Unavailable [phone] Nimesh Melvin MD Unavailable Khadra Cavazos NP Unavailable [phone] Rufina Mccall MA Unavailable Bunny Solorzano MD Unavailable [phone] Khadra Cavazos NP Unavailable [phone] Nri Hastings MD Unavailable Rahul Herr RN Unavailable [phone] Michele Monroe MD Unavailable [phone] Jane Fierro RN Unavailable Eliel Benitez RN Unavailable Susan Herrera MA Unavailable Unavailable [facility] hospital[facility] ru[facility] MD Unavailable Araceli Bolaños MA Unavailable Siobhan Walls SLOPE RUNNER Unavailable Encounter Details Date Type Department Care Team (Late st Contact Info) Description 02/04/2017 Orders Only [facility] [address] [place] [address] Aldair Rodriguez MD [address] [place] [address] Social History Tobacco Use Types Packs/Day Years Used Date Smoking Tobacco: Former Cigarettes Q uit: 05/13/2012 Alcohol Use Standard Drinks/Week Comments Yes 0 (1 standard drink = 0.6 oz pur e alcohol) Sex and Gender Information Value Date Recorded Sex Assigned at Not on file Legal Sex Male 7:11 PM CLEAT BLANKER Gender Identity Male 10/25/2024 9:48 AM CDT Sexual Orientation [place] 10/25/2024 9: 48 AM CDT documented as of this encounter Plan of Treatment Upcoming Encounters Date Type Department Care Team (Late st Contact Info) Description 06/02/2025 11:15 AM CLEAT BLANKER Hospital Encounter [facility] [address] [place] [address] Xochitl Nails MD [address] [place] [address] 06/02/2025 11:15 AM CLEAT BLANKER - 06/02/2025 12:00 PM CLEAT BLANKER Surgery [facility] [address] [address] [address] Xochitl Nails MD [address] [place] [address] COLONOSCOPY Scheduled Procedures Name Priority Associated Diagnoses Date/Ti me COLONOSCOPY History of colon polyps 06/02/2025 11:15 AM CLEAT BLANKER documented as of this encounter Procedures Procedure Name Priority Date/Time Associated Diagnosis Comments SCAN - LABS 02/04/2017 8:42 AM CDT documented in this encounter Results * SCAN - LABS (02/04/2017 8:42 AM CDT) Aldair Rodriguez MD Final Result documented in [...] COVID: Suspected 04/06/2024 04/06/2024 04/06/2024 3:53 PM CLEAT BLANKER C. difficile suspected 06/08/2024 06/12/202406/09 3:07 AM CLEAT BLANKER C. difficile suspected 06/12/2024 06/12/202406/12 10:34 PM CLEAT BLANKER COVID: Suspected 07/11/2024 07/11/2024 07/11/2024 5:10 AM CLEAT BLANKER COVID: Suspected 07/16/2024 07/16/2024 07/16/2024 5:23 PM CLEAT BLANKER COVID: Suspected 08/13/2024 08/13/2024 08/13/2024 11:53 PM CDT documented as of this encounter Care Teams Nurse Healthcare Manager Relationship Specialty Start Date End Date Aldair Rodriguez MD [address] [place] [address] PCP - General 10/12/14 Ro Kirby MD [address] [place] [address] Consulting Physician Cardiovascular Disease 12/25/16 Nava Xiao MD [address] [place] [address] Consulting Physician Anesthesiology 12/25/16 Tianna Richards MD [address] [place] [address] Consulting Physician Gastroenterology 12/25/16 Jaylen Lau MD [address] [place] [address] Consulting Physician Plastic Surgery 04/16/17 Betzaida Oviedo NP [address] [place] [address] Nurse Practitioner Pain Management 09/13/18 Kimani Shukla MD [address] [facility] [place] [address] Consulting Physician Gastroenterology 09/30/18 2 Ramone Lafleur NP [address] [facility] [place] [address] Nurse Practitioner Pain Management 10/27/19 [place] [address] [address] Consulting Physician Plastic Surgery 11/17/20 Xochitl Nails MD [address] [facility] [place] [address] Referring Physician Gastroenterology 02/28/22 Bryan Pierson MD [address] [place] [address] [place] [address] Consulting Physician Pulmonary Disease 10/31/22 Eron Mast MD [address] [place] [address] [place] [address] Consulting Physician Cardiology 01/21/23 Francesco Kam NP [address] [place] [address] [place] [address] Nurse Practitioner Cardiovascular Disease 12/27/22 Nimesh Melvin MD [address] [place] [address] [place] [address] Referring Physician Thoracic Surgery 08/14/23 03/24/24 Khadra Cavazos NP [address] [place] [address] [address] [place] [address] Nurse Practitioner Cardiothoracic Surgery 08/14/23 Rufina Mccall MA [address] [place] [address] [address] [place] [address] ACO Care Rope Twisting Machine Operator 11/06/23 11/06/23 Bunny Solorzano MD [address] [place] [address] [address] [place] [address] Consulting Physician Plastic Surgery 05/09/21 11/20/24 Khadra Cavazos, JULIO CESAR [address] [place] [address] [address] [place] [address] Nurse Practitioner Cardiothoracic Surgery 11/07/23 Nir Hastings MD [address] [facility], [address] [address] Consulting Physician Otolaryngology 03/25/24 07/16/24 Rahul Herr RN [address] [place] [address] [address] [place] [address] Drawer In 05/08/24 05/18/24 Michele Monroe MD [address] [place] [address] Consulting Physician Infectious Diseases 07/15/24 Jane Fierro RN [address] [place] [address] [address] [place] [address] Drawer In 07/16/24 08/06/24 Eliel Benitez RN [address] [place] [address] [address] [place] [address] Drawer In 08/21/24 09/03/24 Susan Herrera MA [address] [facility] [address] [place] [address] ACO Care Rope Twisting Machine Operator 11/02/24 11/03/24 Nir Hastings MD [address] [facility] [address] [place] [address] Consulting Physician Otolaryngology 07/27/24 Araceli Bolaños MA [address] [facility] [address] [place] [address] ACO Care Rope Twisting Machine Operator 02/05/25 02/10/25 Siobhan Walls, SLOPE RUNNER [address] [place] [address] [address] [place] [address] Nurse Practitioner Pulmonary Disease 10/01/24 documented as of this encounter
== END 2025-04-06 18:46 | disposition home or self-care (01) ==
PROVIDERS: Emergency Provider Nurse Practitioner Family; PCP Internal Medicine Infectious Disease
DX: J18.9 Pneumonia, unspecified organism (principal); F17.290 Nicotine dependence, other tobacco product, uncomplicated; E11.42 Type 2 diabetes mellitus with diabetic polyneuropathy; Z79.84 Long term (current) use of oral hypoglycemic drugs; I10 Essential (primary) hypertension; E78.00 Pure hypercholesterolemia, unspecified; J44.1 Chronic obstructive pulmonary disease with (acute) exacerbation; Z21 Asymptomatic human immunodeficiency virus [HIV] infection status; F41.9 Anxiety disorder, unspecified; F32.A Depression, unspecified; Z79.01 Long term (current) use of anticoagulants
CPT/HCPCS: 71046; 99213; G0463